=== PATIENT | male | born 1945 | race Caucasian/White ===

== ENCOUNTER 2021-05-25 08:18 | Outpatient (REF) | payer MEDICARE, SELFPAY ==
--- NOTE | 2021-05-25 12:53 | MHC.AU.AHA ---
Adult Audiological Evaluation Date of Visit: 05/25/21 Reason for Appointment: Audiological evaluation to monitor the status of Mr. Correa's hearing loss. He has a known bilateral sensorineural hearing loss and uses hearing aids binaurally. He feels his hearing is gradually getting worse. He notes difficulties understanding speech in groups and in meetings at work. He denies any changes to his medical history since his last visit. Previous Hearing Test Results: [facility] [place] [facility] [place]- Mild to severe sensorineural hearing loss in the left ear, moderate to severe sensorineural hearing loss in the right ear. Ear History: Bothersome Tinnitus/Ringing/Noises in Ears: Both Ears Medical History: Medical History: Cerebellar ataxia Hearing Instrument History- Right Ear: Repossessor: InMyRoom Model: adBrite M90-13T Serial Number: [id number] Battery Size: 13 Repair Warranty: 04/26/2023 Loss and Damage Warranty: 04/26/2023 Dispensed By: [facility] Date of Fittin03/17/2020 Hearing Instrument History- Left Ear: Repossessor: EVOFEMak Model: adBrite M90-13T Serial Number: [id number] Battery Size: 13 Warranty: 04/26/2023 Loss and Damage Warranty: 04/26/2023 Dispensed By: [facility] Date of Fittin03/17/2020 Otoscopy: Right Ear: Unremarkable Left Ear: Unremarkable Tympanometry: Tympanometry performed due to: History of middle ear dysfunction Right Ear: Reduced Middle Ear Compliance (Type As) Left Ear: Reduced Middle Ear Compliance (Type As) Hearing Evaluation: Transducer(s) Used: Circumaural Headphones Method: Conventional Audiometry Stimuli Used: Pure Tones Right Ear: Description of Hearing: Moderate sloping to severe sensorineural hearing loss from 250-8000 Hz. Left Ear: Description of Hearing: Mild sloping to severe sensorineural hearing loss from 250-8000 Hz. Speech Recognition Threshold (SRT): Method Used: Monitored Live Voice Stimuli Used: Spondee Words Right Ear: 55 dBHL Left Ear: 40 dBHL Word Discrimination: Method: Recorded Lists Word Lists Used: NU-6 Right Ear: 56% at 80 dBHL, 68% at 85 dBHL Left Ear: 64% at 80 dBHL, 76% at 85 dBHL Comparison: Compared to the most recent evaluation: Thresholds have decreased bilaterally. Recommendations: Audiological re-evaluation in one year. Hearing aid(s) reprogrammed with updated test results. Diagnosis: Primary Diagnosis: H90.3 Bilateral Sensorineural Hearing Loss Secondary Diagnosis: H69.93 Unspecified Eustachian Tube Dysfunction, Bilateral Services Performed: Comprehensive Audiological Evaluation (CPT 44029) Tympanometry (CPT 64259) Signature: Provider: Zka Castillo, CCC-A
== END 2021-05-25 08:19 | disposition home or self-care (01) ==
LOC: HO.SH 08:18
PROVIDERS: Visit Provider Internal Medicine Medical Oncology
DX: H90.3 Sensorineural hearing loss, bilateral (principal); H69.93 Unspecified Eustachian tube disorder, bilateral
CPT/HCPCS: 92557; 92567

== ENCOUNTER 2021-06-09 09:45 | Outpatient (REF) | payer SELFPAY | END 2021-06-09 09:46 | disposition home or self-care (01) | LOC: HO.HAP 09:45 | PROVIDERS: Visit Provider Internal Medicine Medical Oncology | DX: Z13.89 Encounter for screening for other disorder (principal) ==

== ENCOUNTER 2022-08-16 08:20 | Outpatient (REF) | payer MEDICARE, SELFPAY ==
--- NOTE | 2022-08-16 15:41 | MHC.AU.HFU ---
Hearing Instrument Follow-Up- Binaural Date of Visit: 08/16/22 Right Ear: Cuff Cutter: Phonak Model: Audeo M90-13T Serial Number: [id number] Repair Warranty: 04/26/2023 Loss and Damage Warranty: 04/26/2023 Battery Size: 13 Investor Relations Director: Size 1 M Type of Dome: Small power dome Type of Wax Guard: Cerushield Dispensed By: [facility] Date of Fittin03/17/2020 Left Ear: Cuff Cutter: Phonak Model: Audeo M90-13T Serial Number: [id number] Repair Warranty: 04/26/2023 Loss and Damage Warranty: 04/26/2023 Battery Size: 13 Investor Relations Director: Size 1 M Type of Dome: Small power Type of Wax Guard: Cerushield Dispensed By: [facility] Date of Fittin03/17/2020 Follow-Up Summary: Alexis returned for routine hearing aid maintenance. His hearing aids were cleaned, microphones were vacuumed, and domes and wax guards were replaced. He reported that the sound quality of these hearing aids compared to his old Audeo Q90-312 T is more shrill. He reportedly uses each pair of hearing aids interchangeably and has not established consistent use of his new hearing aids. Programming adjustments were not made today; however, Alexis was advised to call if the sound quality becomes uncomfortable or if problems persist. Recommendations: Hearing instrument maintenance in 6 months, or sooner if needed. Please contact our clinic with any questions or concerns. Diagnosis Code(s): Primary Diagnosis: H90.3 Bilateral Sensorineural Hearing Loss Signature: Provider: Lino Scott, [facility]
== END 2022-08-16 08:21 | disposition home or self-care (01) ==
LOC: HO.SH 08:20
PROVIDERS: Visit Provider Internal Medicine Medical Oncology
DX: Z01.118 Encounter for examination of ears and hearing with other abnormal findings (principal); H90.3 Sensorineural hearing loss, bilateral
CPT/HCPCS: 92557

== ENCOUNTER → 2022-12-06 13:07 | Outpatient (BNVA) | payer MEDICARE, SELFPAY | PROVIDERS: PCP Internal Medicine Medical Oncology; Visit Provider Nurse Practitioner Family | DX: G20 Parkinson's disease (principal); R51.9 Headache, unspecified; R26.9 Unspecified abnormalities of gait and mobility; H53.2 Diplopia | CPT/HCPCS: 99202 ==

== ENCOUNTER → 2023-04-26 12:54 | Outpatient (BNVA) | payer MEDICARE, SELFPAY | PROVIDERS: PCP Internal Medicine Medical Oncology; Visit Provider Nurse Practitioner Family | DX: G20 Parkinson's disease (principal); H53.2 Diplopia; R26.9 Unspecified abnormalities of gait and mobility; R42 Dizziness and giddiness | CPT/HCPCS: 99212 ==

== ENCOUNTER 2023-07-12 09:17 | Day surgery (SDC) | payer MEDICARE, SELFPAY ==
--- NOTE | 2023-07-11 11:05 | P.CONAN_ITS ---
Documented by User: Oliva Heranndez NP 07/11/23 11:05 HPI - Anesthesia Eval Consult details Narrative: 78yo M for Upper Endoscopy and Colonoscopy Afib s/p RFA. [facility] Active Problems Active Problems: All Active Problems (Updated 07/11/23 @ 09:31 by Karla Butterfield RN) Parkinson's disease (Acute) Tremor (Acute) Diplopia (Acute) Headache (Acute) Gait difficulty (Acute) Dizziness (Acute) Past Medical History Medical History Ataxia Atrial fibrillation GERD (gastroesophageal reflux disease) HTN (hypertension) Movement disorder Family History Family History Mother Ovarian ca Cerebellar ataxia Father Heart abnormality Surgical History Surgical History History of knee surgery History of radiofrequency ablation (RFA) procedure for cardiac arrhythmia History of surgery on arm History of surgery on lower extremity Social History Social History Alcohol intake: current Alcohol intake frequency: a few times a week Alcohol type: wine Patient Tobacco Use Status: Former Tobacco user Quit Date: 1972 Use of substances other than those prescribed or required for medical reasons: No Are you DNR?: No Advance Directives: No Advance Directives Information Provided: Yes Meds Allergies Allergy/AdvReac Type Severity Reaction Status Date / Time No Known Allergies Allergy Verified 04/26/23 13:08 [No Known Allergies*] Home Medications Medication Instructions Recorded Confirmed Last Taken Type aspirin 81 mg tablet,delayed 81 mg PO DAILY 12/06/22 07/12/23 Unknown History release (Adult Aspirin Regimen) multivit with min-folic 1 tab PO DAILY 12/06/22 07/12/23 Unknown History acid-lutein 400 mcg-250 mcg chewable tablet (Centrum Silver) vitamin B complex (B 1 tab PO DAILY 12/06/22 07/12/23 Unknown History Complex-Vitamin B12 tablet) omeprazole 1 tab PO DAILY 04/26/23 07/12/23 Unknown History verapamil 120 mg tablet 60 mg PO DAILY 04/26/23 07/12/23 Unknown History Exam Exam Date and Time: July 11, [id number] Assessment and Plan Assessment Anesthesia Assessment: Chart Reviewed Documented by User: Shyanne Knight MD 07/12/23 10:06 [facility] Past Medical History Medical History Ataxia Atrial fibrillation GERD (gastroesophageal reflux disease) HTN (hypertension) Movement disorder Family History Family History Mother Ovarian ca Cerebellar ataxia Father Heart abnormality Surgical History Surgical History History of knee surgery History of radiofrequency ablation (RFA) procedure for cardiac arrhythmia History of surgery on arm History of surgery on lower extremity History of Problems with Anesthesia: No Social History Social History Alcohol intake: current Alcohol intake frequency: a few times a week Alcohol type: wine Patient Tobacco Use Status: Former Tobacco user Quit Date: 1972 Use of substances other than those prescribed or required for medical reasons: No Are you DNR?: No Advance Directives: No Advance Directives Information Provided: Yes Meds Allergies Allergy/AdvReac Type Severity Reaction Status Date / Time No Known Allergies Allergy Verified 04/26/23 13:08 [No Known Allergies*] Home Medications Medication Instructions Recorded Confirmed Last Taken Type aspirin 81 mg tablet,delayed 81 mg PO DAILY 12/06/22 07/12/23 Unknown History release (Adult Aspirin Regimen) multivit with min-folic 1 tab PO DAILY 12/06/22 07/12/23 Unknown History acid-lutein 400 mcg-250 mcg chewable tablet (Centrum Silver) vitamin B complex (B 1 tab PO DAILY 12/06/22 07/12/23 Unknown History Complex-Vitamin B12 tablet) omeprazole 1 tab PO DAILY 04/26/23 07/12/23 Unknown History verapamil 120 mg tablet 60 mg PO DAILY 04/26/23 07/12/23 Unknown History Exam Airway Mallampati Class: III TM Dist: >3cm Neck ROM: Full Loose/Missing/Broken Teeth: No Heart: RRR Lungs: CTA Assessment and Plan Assessment Anesthesia Assessment: Anesthesia Plan Discussed Final Anesthetic Review History of Problems with Anesthesia: No NPO: Yes ASA Class: III Final Preanesthetic Review: Meds/Allgs Chart Reviewed, Consent Obtained/Reviewed and Anes Risks/Benef Reviewed Patient Risk: Intermediate Procedure Risk: Intermediate Anesthetic Plan Anesthetic Plan: MAC: Disposition: Standard PACU
[2023-07-12 09:35] VITALS: BMI 26.5
[2023-07-12 09:41] VITALS: BP 137/81; PULSE 86; RESP 18; TEMP 36.6; O2SAT 96
[2023-07-12 09:55] VITALS: BMI 26.5
[2023-07-12] MEDS: Lactated Ringers 1,000 ML 100 ML IVCONT (10:03)
[2023-07-12 11:17] VITALS: BP 112/59; PULSE 47; RESP 12; TEMP 36.2; O2SAT 99
--- NOTE | 2023-07-12 11:20 | PM.OP ---
Brief Operative Note Date of Service: 07/12/23 Pre-op diagnosis: Jeffrey's, Screening Post-op diagnosis: other (Hiatal hernia, Gastric polyp, Diverticulosis) Procedure: EGD with biopsies, Colonoscopy to the cecum Surgeon: Jonny Cruz Anesthesia: MAC Was an Correspondence Renew Clerk used for this Procedure?: No Estimated blood loss (mL): 2.0 Pathology: other (A. Proximal gastric polyp B. EG Junction at 35cm) Condition: stable Disposition: PACU
[2023-07-12 11:32] VITALS: BP 147/66; PULSE 51; RESP 16; TEMP 36.6; O2SAT 98
[2023-07-12 11:47] VITALS: BP 147/65; PULSE 58; RESP 16; O2SAT 99
--- NOTE | 2023-07-12 12:58 | OP_ITS ---
DATE OF SERVICE: 07/12/2023 SURGEON: Jonny Cruz MD INDICATIONS: The patient presents for evaluation of gastroesophageal reflux, history of Jeffrey's esophagus, and colorectal cancer screening. Full consent has been obtained from him for this, including risks of bleeding and perforation. PREOPERATIVE DIAGNOSIS: POSTOPERATIVE DIAGNOSIS: PROCEDURE PERFORMED: Esophagogastroduodenoscopy with biopsies, and colonoscopy to the cecum. ESTIMATED BLOOD LOSS: COMPLICATIONS: ANESTHESIA: Medication used, monitored anesthesia care. ASSISTANTS: SPECIMENS: PREOPERATIVE DIAGNOSES: Gastroesophageal reflux, history of Jeffrey's esophagus, colorectal cancer screening. POSTOPERATIVE DIAGNOSES: Gastroesophageal reflux, history of Jeffrey's esophagus, colorectal cancer screening, hiatal hernia, gastric polyp, diverticulosis, and internal hemorrhoids. DESCRIPTION OF PROCEDURE: The patient was placed in the left lateral decubitus position. The Olympus video gastroscope was passed into the posterior oropharynx and upper esophagus under direct vision. The scope was passed slowly to the distal esophagus. The gastroesophageal junction appeared at 35 cm. There was some very slight irregularity consistent with reflux and possibly small areas of Jeffrey's mucosa. There was no esophagitis nor any lesions. The scope entered the stomach. There was a moderate-sized hiatal hernia. Right beneath the hiatal hernia in the very proximal stomach was an approximately 10 mm flat gastric polyp. The scope was advanced to pylorus. The duodenum was cannulated to the descending portion. The duodenum including the bulb appeared normal without mass or ulceration. The scope was withdrawn back into the stomach. The gastric antrum and body appeared normal with good peristalsis. The scope was retroflexed visualizing the proximal stomach carefully, which appeared normal, other than the above-mentioned gastric polyp. There were no masses, nor any other lesions noted. In the forward viewing position, I was able to obtain several biopsies from the gastric polyp. This was along the lesser curvature in the very proximal stomach, just beneath the hiatal hernia. The hiatal hernia mucosa appeared normal. The scope was withdrawn back to the esophagus. Biopsies were obtained at the EG junction at 35 cm. Proximal to that, the esophageal mucosa appeared normal. The scope was withdrawn from the patient. He was turned around for the colonoscopy. The digital rectal exam revealed no abnormalities. The Olympus video pediatric colonoscope was entered into the rectum and advanced to the cecum. Advancement past the sigmoid was somewhat difficult due to some spasm and a lot of diverticulosis. Once in the cecum, I did identify normal-appearing cecal pouch with appendiceal orifice and a normal-appearing ileocecal valve. The entire cecum and ileocecal valve appeared normal. The scope was slowly withdrawn assessing all mucosal surfaces carefully. Preparation was for the most part excellent, although there was a lot of residual liquid, which had to be irrigated and suctioned away. I did not visualize any sign of polyps, colitis, nor angiodysplasia. There was a moderate amount of sigmoid and descending colon diverticulosis. In the rectum, scope was retroflexed visualizing internal hemorrhoids, but no other pathology. The rectal mucosa appeared normal. The scope was straightened and withdrawn from the patient. He tolerated the procedures well and was returned to the recovery area in stable condition. IMPRESSION: 1. Hiatal hernia, gastroesophageal reflux, rule out Jeffrey's esophagus. 2. Gastric polyp. 3. Diverticulosis. 4. Internal hemorrhoids. PLAN: The results of the biopsies will be checked. Given his age and these minimal findings, I do not think he will need any further upper endoscopies nor screening colonoscopies in the future. He was advised not to use any aspirin or NSAIDs for 1 more week. He will continue his omeprazole for relief of his reflux. He will otherwise see me on a p.r.n. basis. This has been discussed with his . MD HELEN Sigala/STEPHEN / [id number] MTDD
== END 2023-07-12 12:38 | disposition home or self-care (01) ==
PROVIDERS: PCP Internal Medicine Medical Oncology; Visit Provider Internal Medicine
PROC: (CPT 43239; principal; 2023-07-12 10:30)
DX: Z12.11 Encounter for screening for malignant neoplasm of colon (principal); K57.30 Diverticulosis of large intestine without perforation or abscess without bleeding; K64.8 Other hemorrhoids; K22.70 Barrett's esophagus without dysplasia; K21.9 Gastro-esophageal reflux disease without esophagitis; K31.7 Polyp of stomach and duodenum; K44.9 Diaphragmatic hernia without obstruction or gangrene; I10 Essential (primary) hypertension; I48.91 Unspecified atrial fibrillation; G25.9 Extrapyramidal and movement disorder, unspecified; R27.0 Ataxia, unspecified; Z79.899 Other long term (current) drug therapy; Z79.82 Long term (current) use of aspirin; Z87.891 Personal history of nicotine dependence
CPT/HCPCS: 43239; G0121; 88305; 88342

== ENCOUNTER 2023-08-08 13:05 | Outpatient (AMB) | payer MEDICARE, SELFPAY ==
--- NOTE | 2023-08-08 13:22 | MHC.OFFVIS ---
Intake Vital Signs 08/08/23 13:23 Weight 184 lb BP 124/78 Blood Pressure Location Rt brachial Position Sitting Pulse 69 Pulse Source Pulse Oximeter Pulse Oximetry (%) 96 Oxygen Delivery Method Room Air Intake Visit Reasons: 5m f/u cerebellar ataxia/parkinson-Confirmed Intake Note: Patient presents for 5 month follow up. Patient states I haven't gotten the pet scan results would like to take a look at that. Allergies No Known Allergies [No Known Allergies*] Allergy (Verified 08/08/23 13:24) HPI HPI Comments History of Present Illness Details 78 -yr-old fe/male presents for f/u visit. Pt denies any significant interval medical history changes. Brain RACHEL SPECT study. Findings: There is residual but abnormally decreased uptake within the bilateral caudate heads. There is significantly decreased uptake in the bilateral putamen, right worse than left. Impression: Decreased activity in bilateral basal ganglia as described above. Differential diagnosis includes Parkinson's disease, multiple system atrophy, progressive supranuclear palsy, dementia with Lewy Bodies, and cortical basal degeneration. After DaTscan I had spoken to pt about results and given resources for pt to review online- which he has done. Pt would like to discuss DaTscan results of PD and implications. wonders if results exclude previous dx of cerbellar ataxia, or if these are 2 separate possible dx's. He states his primary concern right now is his overall endurance. He may find that if he stands to long, he will feel as if his feet/body is frozen. He has just started PT at [facility]- done 1 session so far. [facility] Medical History Ataxia Atrial fibrillation GERD (gastroesophageal reflux disease) HTN (hypertension) Movement disorder Surgical History History of surgery on lower extremity History of surgery on arm History of knee surgery History of radiofrequency ablation (RFA) procedure for cardiac arrhythmia Family History Mother Ovarian ca Cerebellar ataxia Father Heart abnormality Social History Alcohol intake: current Alcohol intake frequency: a few times a week Alcohol type: wine Patient Tobacco Use Status: Former Tobacco user Quit Date: 1972 Review of Systems Const All systems reviewed & are unremarkable except as noted in HPI and below Physical Exam Vital Signs: Last Vital Signs Pulse 69 08/08/23 13:23 BP 124/78 08/08/23 13:23 Pulse Ox 96 08/08/23 13:23 Oxygen Delivery Method Room Air 08/08/23 13:23 Const General: cooperative and no acute distress Resp Effort & Inspection: normal respiratory effort and able to speak in complete sentences Neuro Other: General: A&O x's Expression: Mild decreased expression and blink Voice: Soft hoarse Tremor: Intermittent very mild left postural tremor Tone: No significant tone Dyskinesia: None Finger-nose- Intact, slightly less fluid on left FFM: Mildly decreased on left Foot taps: Decreased fluidity on left Gait: Stands easily w/o arms, slight stoop, no arm swing, narrow base, shorter steps, more narrow base, quick turns. Psych: Pleasant affect Assessment & Plan Assessment & Plan (1) Parkinson's disease: Comment: ? MSA Code(s): G20 - Parkinson's disease (2) Tremor: Code(s): R25.1 - Tremor, unspecified (3) Diplopia: Code(s): H53.2 - Diplopia Plan Reviewed DaTscan results- results c/w a neurodegenerative process such as PD. Discussed obtaining genetics consult to assess for cerebellar ataxia- however pt not interested at this time. Continue PT. Continue regular physical and cognitively stimulating activities. Pt advised to f/u w/ audiology for hearing aides. No strong indication to start dopaminergic tx at this time. f/u in 4 months or sooner prn. Coding Level of Care Code Est Pt Level 4 (57120) Diagnoses Parkinson's disease G20 Tremor R25.1 Diplopia H53.2
[2023-08-08 13:23] VITALS: BP 124/78; PULSE 69; O2SAT 96
== END 2023-08-08 14:35 | disposition home or self-care (01) ==
PROVIDERS: PCP Internal Medicine Medical Oncology; Visit Provider Nurse Practitioner Family
DX: G20 Parkinson's disease (principal); R25.1 Tremor, unspecified; H53.2 Diplopia
CPT/HCPCS: 99214

== ENCOUNTER → 2023-08-08 13:05 | Outpatient (BNVA) | payer MEDICARE, SELFPAY | PROVIDERS: PCP Internal Medicine Medical Oncology; Visit Provider Nurse Practitioner Family | DX: G20.A1 Parkinson's disease without dyskinesia, without mention of fluctuations (principal); H53.2 Diplopia | CPT/HCPCS: 99212 ==

== ENCOUNTER 2023-11-22 08:42 | Outpatient (REF) | payer MEDICARE, SELFPAY | END 2023-11-22 08:43 | disposition home or self-care (01) | LOC: HO.SH 08:42 | PROVIDERS: Visit Provider Internal Medicine Medical Oncology | DX: Z01.118 Encounter for examination of ears and hearing with other abnormal findings (principal); H90.3 Sensorineural hearing loss, bilateral | CPT/HCPCS: 92552; 92556; 92567 ==

== ENCOUNTER 2023-11-22 09:56 | Outpatient (REF) | payer SELFPAY ==
--- NOTE | 2023-11-22 11:54 | MHC.AU.HA3 ---
Hearing Instrument Follow-Up- Binaural Date of Visit: 11/22/23 Right Ear: Marlon, Model, Color, Serial Number: Jw Bolden [id number] SN: [id number] Color: Derike Manager Commercial Repair Warranty: 04/26/2023 Manager Commercial Loss and Damage Warranty: 04/26/2023 Battery Size: 13 Customs House Broker/Slim Tube: 1M Earmold/Dome/CShell/SlimTip:Small power dome with retention tail Type of Wax Guard: Cerushield Dispensed By: [facility] Date of Fittin03/17/2020 Left Ear: Marlon, Model, Color, Serial Number: Jw Bolden [id number] SN: [id number] Color: Maricruz Manager Commercial Repair Warranty: 04/26/2023 Manager Commercial Loss and Damage Warranty: 04/26/2023 Battery Size: 13 Customs House Broker/Slim Tube: 1M Earmold/Dome/CShell/SlimTip: Small power dome with retention tail Type of Wax Guard: Cerushield Dispensed By: [facility] Date of Fittin03/17/2020 Follow-Up Summary: Alexis returned for routine hearing aid maintenance and programming adjustments following an updated hearing test. Cleaned both sets of hearing aids (current Audeo [id number] and old Audeo [id number]). Replaced all domes, wax guards, and retention tails. Vacuumed microphones and ran through dehumidifier. Reprogrammed new hearing aids to updated audiogram due to slight decrease in high frequency thresholds. Initially, Alexis noticed improvement in speech understanding and requested soundfield testing. [facility] - scored 80% at 60 dB HL. Alexis then reported the hearing aids were too loud; however, he was agreeable to trying to acclimate to the new sound quality. He will use his xiao to make programming adjustments, as needed. Alexis also requested a volume increase on his old hearing aids. Increased overall gain level to 100%. Alexis will try new settings on both hearing aids and return if problems arise. Discussed that warranty and any future visits will incur [id number]. Recommendations: Hearing instrument follow-up or maintenance as needed. Please contact our clinic with any questions or concerns. Recommendations (Other): Follow up with primary care physician for cerumen removal Diagnosis Code(s): Primary Diagnosis: H90.3 Bilateral Sensorineural Hearing Loss Signature: Provider: Lino Scott, [facility]
== END 2023-11-22 09:57 | disposition home or self-care (01) ==
LOC: HO.HAP 09:56
PROVIDERS: Visit Provider Internal Medicine Medical Oncology
DX: Z46.1 Encounter for fitting and adjustment of hearing aid (principal); H90.3 Sensorineural hearing loss, bilateral
CPT/HCPCS: 92593

== ENCOUNTER 2023-12-13 13:16 | Outpatient (AMB) | payer MEDICARE, SELFPAY ==
--- NOTE | 2023-12-13 13:46 | MHC.OFFVIS ---
Intake Vital Signs 12/13/23 13:48 Height 5 ft 10 in Weight 184 lb 6 oz BMI 26.5 BP 124/82 Blood Pressure Location Rt brachial Position Sitting Pulse 76 Pulse Source Pulse Oximeter Pulse Oximetry (%) 98 Oxygen Delivery Method Room Air Intake Visit Reasons: 4 mnts f/u appt-LVM Intake Note: patient presents for 4 mth follow up. Allergies No Known Allergies [No Known Allergies*] Allergy (Verified 12/13/23 13:49) Medication List - Last Reconciled 12/13/23 by IVAN Rodriguez aspirin (Adult Aspirin Regimen) 81 mg PO DAILY im-asi-nyifj acid-lutein 400-250 mcg (Centrum Silver) 1 tab PO DAILY omeprazole 1 tab PO DAILY verapamil 60 mg PO DAILY vitamin B complex (B Complex-Vitamin B12 tablet) 1 tab PO DAILY HPI HPI Comments History of Present Illness Details 78-yr-old male presents for f/u visit, accompanied by his . Pt's current PD medication regimen: None Pt's primary concerns are: He is slower overall. Patient does have questions regarding Parkinson's. He is curious about affects of long-term levodopa use. He wonders if it is possible to overdo it with exercise. Specifically he wonders if excessive exercise will have a negative effect on the basal ganglia. He also wonders if he will need a follow-up terrence scan. ADL's: Ind. More effort putting coat on/off- which he attributes to left upper arm pain. Swallowing: No issues Drooling: Some Orthostatic lightheadedness: Has not had this so much- PT has helped this Constipation: None Freezing: None Stiffness: Possibly, may he is slower because he is stiffer- but not sure if he is rigid. Tremor: Not much in hands, legs may twitch especially if standing or standing on one leg Falls: Fell the other day, was walking about 1/2 mile (usually walks longer), pushed it too far and all of a sudden got weak and legs gave out and had to go down, felt weak for a few minutes. He notes that before he took the walk, he already did not feel well, maybe some malaise. feels that he may not eat enough during the day. This was his typical fall- last was a few years ago. Hallucinations: Denies Memory: May have senior moments , looking for a word Sleep: 9 hrs a night- wishes it was less so he could use the treadmill. He now feels less ablility to bounce back from lack of sleep. Exercise: Doing more PD exercises. [facility] Medical History Ataxia Atrial fibrillation GERD (gastroesophageal reflux disease) HTN (hypertension) Movement disorder Surgical History History of surgery on lower extremity History of surgery on arm History of knee surgery History of radiofrequency ablation (RFA) procedure for cardiac arrhythmia Family History Mother Ovarian ca Cerebellar ataxia Father Heart abnormality Social History Alcohol intake: current Alcohol intake frequency: a few times a week Alcohol type: wine Patient Tobacco Use Status: Former Tobacco user Quit Date: 1972 Review of Systems Const All systems reviewed & are unremarkable except as noted in HPI and below Physical Exam Vital Signs: Last Vital Signs Pulse 76 12/13/23 13:48 BP 124/82 12/13/23 13:48 Pulse Ox 98 12/13/23 13:48 Oxygen Delivery Method Room Air 12/13/23 13:48 BMI result Body Mass Index 26.5 Const General: cooperative and no acute distress Resp Effort & Inspection: normal respiratory effort and able to speak in complete sentences Neuro Other: General: A&O x's Expression: Mild decreased expression and blink Voice: Soft hoarse Tremor: No left postural tremor today Tone: Mild UE tone Dyskinesia: None FFM: Mildly decreased on left Foot taps: Decreased fluidity on left Gait: Stands easily w/o arms, slight stoop, no arm swing, narrow base, short steps, steady. Left upper extremity: Proximal upper arm tenderness, without swelling, redness, ecchymosis. Negative empty can test. Muscle strength 5/5. Limited shoulder range of motion- ? Due to discomfort. Assessment & Plan Assessment & Plan (1) Parkinson's disease without dyskinesia: Code(s): G20.A1 - Parkinson's disease without dyskinesia, without mention of fluctuations (2) Left arm pain: Code(s): M79.602 - Pain in left arm (3) Lightheadedness: Code(s): R42 - Dizziness and giddiness (4) Tremor: Code(s): R25.1 - Tremor, unspecified Plan Answered all patient's questions regarding Parkinson's treatment and progression. Specifically, we do not usually order serial brain terrence scans Advised to read every [facility] counts by the [facility]. Patient will reach out to previous orthopedic surgeon at [facility], to further assess left upper arm shoulder pain. Consider referral to PT after ortho consult. Discussed risks for orthostatic hypotension in Parkinson's, especially in light of verapamil use. Advised to increase fluid and food, especially protein and carbohydrate intake prior to exercise. Continue regular physical and cognitively stimulating activities. Pt is not interested in starting dopaminergic tx at this time. f/u in 4 months or sooner prn. Coding Level of Care Code Est Pt Level 4 (34427) Diagnoses Parkinson's disease without dyskinesia G20.A1 Left arm pain M79.602 Lightheadedness R42 Tremor R25.1 Time Spent (min) 40
[2023-12-13 13:48] VITALS: BP 124/82; PULSE 76; O2SAT 98; BMI 26.5
== END 2023-12-13 14:47 | disposition home or self-care (01) ==
PROVIDERS: PCP Internal Medicine Medical Oncology; Visit Provider Nurse Practitioner Family
DX: G20.A1 Parkinson's disease without dyskinesia, without mention of fluctuations (principal); M79.602 Pain in left arm; R42 Dizziness and giddiness
CPT/HCPCS: 99214

== ENCOUNTER → 2023-12-13 13:16 | Outpatient (BNVA) | payer MEDICARE, SELFPAY | PROVIDERS: PCP Internal Medicine Medical Oncology; Visit Provider Nurse Practitioner Family | DX: G20.A1 Parkinson's disease without dyskinesia, without mention of fluctuations (principal); M79.602 Pain in left arm; R42 Dizziness and giddiness | CPT/HCPCS: 99212 ==

== ENCOUNTER 2024-04-19 12:16 | Outpatient (AMB) | payer MEDICARE, SELFPAY ==
[2024-04-19 13:00] VITALS: BP 112/80; PULSE 85; O2SAT 96; BMI 26.3
--- NOTE | 2024-04-19 13:00 | MHC.OFFVIS ---
Vital Signs 04/19/24 13:00 Height 5 ft 10 in Weight 183 lb BMI 26.3 BP 112/80 Blood Pressure Location Rt brachial Position Sitting Pulse 85 Pulse Source Pulse Oximeter Pulse Oximetry (%) 96 Oxygen Delivery Method Room Air Intake Visit Reasons: 4m follow up - LVM Intake Note: Patient presents for 4 month follow up. Patient stiffens up if he sits for long period of time,balance varies but in a decline has hard trouble articulating. Allergies No Known Allergies [No Known Allergies*] Allergy (Verified 04/19/24 13:06) Medication List - Last Reconciled 04/19/24 by IVAN Rodriguez aspirin (Adult Aspirin Regimen) 81 mg PO DAILY yo-pdk-fckrw acid-lutein 400-250 mcg (Centrum Silver) 1 tab PO DAILY omeprazole 1 tab PO DAILY verapamil 60 mg PO DAILY vitamin B complex (B Complex-Vitamin B12 tablet) 1 tab PO DAILY HPI Comments Details: 79-yr-old male presents for f/u visit, accompanied his . Pt denies any significant interval medical history changes. Pt's current PD medication regimen: None Pt's primary concerns are: Some days he is not as able to complete his walk. Walks around the campus near his office- stays in a loop where he can easily get back to his office. He will just feel that he he feels more weak, and will feel unsteady. His notes that his feet will drag more and he will be hunched over. He does not that his quadriceps are stiffer, when he starts to walk, but this loosens up. ADL's: Ind. Swallowing: No usual issues. He has had some bouts of choking- fluid going down the wrong way. Drooling: Some Orthostatic lightheadedness: None. Constipation: None Freezing: None Stiffness: Quads are stiff. He is slower overall. Tremor: Not much in hands- just in certain positions. Falls: Some close calls. No actual falls. Occassionally has fest Hallucinations: Denies Memory: May have senior moments , looking for a word Sleep: 9 hrs a night- rare night of not sleeping well. Exercise: Doing more PD exercises. Walking on the treadmill. [facility] Medical History Ataxia Atrial fibrillation GERD (gastroesophageal reflux disease) HTN (hypertension) Movement disorder Surgical History History of surgery on lower extremity History of surgery on arm History of knee surgery History of radiofrequency ablation (RFA) procedure for cardiac arrhythmia Family History Mother Ovarian ca Cerebellar ataxia Father Heart abnormality Social History Alcohol intake: current Alcohol intake frequency: a few times a week Alcohol type: wine Patient Tobacco Use Status: Former Tobacco user Review of Systems Const All systems reviewed & are unremarkable except as noted in HPI and below Physical Exam Vital Signs: Last Vital Signs Pulse 85 04/19/24 13:00 BP 112/80 04/19/24 13:00 Pulse Ox 96 04/19/24 13:00 Oxygen Delivery Method Room Air 04/19/24 13:00 BMI result Body Mass Index 26.3 Const General: cooperative and no acute distress Resp Effort & Inspection: normal respiratory effort and able to speak in complete sentences Neuro Other: General: A&O x's Expression: Mild decreased expression and blink Voice: Soft hoarse Tremor: No left postural tremor today Tone: LUE tone Dyskinesia: None FFM: Decreased on left Foot taps: Decreased fluidity on left Gait: Stands easily, unsteady after standing- crosses feet, slight stoop, no arm swing, narrow base, short steps w/ cane Assessment & Plan Assessment & Plan (1) Parkinson's disease without dyskinesia: Code(s): G20.A1 - Parkinson's disease without dyskinesia, without mention of fluctuations Category: Medical (2) Gait difficulty: Code(s): R26.9 - Unspecified abnormalities of gait and mobility Category: Medical Plan Start CD-LD 25-100mg 1 tab bid. Will refer pt for PT eval & tx for gait, balance, rigidity. Advised to be mindful to turn slowly, using his whole body. Continue regular physical and cognitively stimulating activities. ? f/u in 4-6 months or sooner prn. Orders: Orders PT Evaluation and Treatment Today G20.A1 - Parkinson's disease without dyskinesia, without mention of fluctuations, R26.9 - Unspecified abnormalities of gait and mobility, R29.898 - Other symptoms and signs involving the musculoskeletal system Medications: New carbidopa-levodopa 25-100 mg take w/ a cracker 30 minutes before breakfast and dinner, 1 tab PO BID 90 days 180 tabs 1RF Coding Level of Care Code Est Pt Level 4 (29847) Diagnoses Parkinson's disease without dyskinesia G20.A1 Gait difficulty R26.9
== END 2024-04-19 14:12 | disposition home or self-care (01) ==
PROVIDERS: PCP Internal Medicine Medical Oncology; Visit Provider Nurse Practitioner Family
DX: G20.A1 Parkinson's disease without dyskinesia, without mention of fluctuations (principal); R26.9 Unspecified abnormalities of gait and mobility
CPT/HCPCS: 99214

== ENCOUNTER → 2024-04-19 12:16 | Outpatient (BNVA) | payer MEDICARE, SELFPAY | PROVIDERS: PCP Internal Medicine Medical Oncology; Visit Provider Nurse Practitioner Family | DX: G20.A1 Parkinson's disease without dyskinesia, without mention of fluctuations (principal); R26.9 Unspecified abnormalities of gait and mobility | CPT/HCPCS: 99212 ==

== ENCOUNTER 2024-07-05 08:18 | Outpatient (REF) | payer SELFPAY ==
--- NOTE | 2024-07-05 09:15 | MHC.AU.HA3 ---
Hearing Instrument Follow-Up- Binaural Date of Visit: 07/05/24 Right Ear: Marlon, Model, Color, Serial Number: Jw Bolden [id number] SN: [id number] Color: Joeyagne Physical Security Manager Repair Warranty: 04/26/2023 Physical Security Manager Loss and Damage Warranty: 04/26/2023 Battery Size: 13 Floral Clerk/Slim Tube: 1M Earmold/Dome/CShell/SlimTip:Small power dome with retention tail Type of Wax Guard: Cerushield Dispensed By: [facility] Date of Fittin03/17/2020 Left Ear: Marlon, Model, Color, Serial Number: Jw Bolden [id number] SN: [id number] Color: Maricruz Physical Security Manager Repair Warranty: 04/26/2023 Physical Security Manager Loss and Damage Warranty: 04/26/2023 Battery Size: 13 Floral Clerk/Slim Tube: 1M Earmold/Dome/CShell/SlimTip: Small power dome with retention tail Type of Wax Guard: Cerushield Dispensed By: [facility] Date of Fittin03/17/2020 Follow-Up Summary: Past three months, has noticed increasing difficulty understanding speech, particularly high-pitched voices. Also asking for more repetition. Wax guards almost completely occluded. Cleaned both hearing aids. Replaced domes, wax guards, and retention tails. Vacuumed microphones. Ran through dehumidifier. Listening check demonstrated hearing aids amplifying clearly. Increased overall gain to 100%. Reran feedback analyzer with noted improvement in feedback curve in right ear. Increased noise management settings in noise programs due to reported difficulty in more complex listening environments. Discussed realistic expectations, processing of sounds, etc. After adjustments, Alexis noticed improvement of sound quality in office. Advised scheduling apt within 1-2 weeks if issues persist to be covered under today's office visit fee. Recently dx Parkinson's. Recommendations: Hearing instrument follow-up or maintenance as needed. Please contact our clinic with any questions or concerns. Diagnosis Code(s): Primary Diagnosis: H90.3 Bilateral Sensorineural Hearing Loss Signature: Provider: Lino Scott, [facility]
== END 2024-07-05 08:19 | disposition home or self-care (01) ==
LOC: HO.SH 08:18
PROVIDERS: Visit Provider Internal Medicine Medical Oncology
DX: Z01.118 Encounter for examination of ears and hearing with other abnormal findings (principal); H90.3 Sensorineural hearing loss, bilateral
CPT/HCPCS: 92593

== ENCOUNTER 2024-11-15 13:41 | Outpatient (AMB) | payer MEDICARE, SELFPAY ==
--- OUTSIDE RECORDS SUMMARY | 2024-11-15 13:44 | XMS_ITS ---
Author Organization [facility] Address [address] [place] [address] Care Team Providers Care Economic Specialist Name Role Phone Jonny Serra MD Primary Care Provider Unavailab Jonny Shelley Unavailable [phone] REASON FOR VISIT gerd,tello's ,screening PROBLEMS Problem Type ICD Code Onset Dates Problem Status W/U Status Risk SNOMED Code Notes Problem Diverticulosis of colon (K57.30) Active confirmed Diverticulosi s of colon (582359064) Problem Esophageal reflux (K21.9) Active confirmed Esophageal refl ux (355191943) Problem Gastric polyp (K31.7) Active confirmed Gastric polyp (83373548) 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 Tello esophag us (792461267) Encounters Encounter Location Date Provider Diagnosis [facility] Outpatient [address] [place] [phone] 07/12/2023 Jonny Cruz Colon cancer scree wade Z12.11 ; Diverticulosis of colon K57.30 ; Internal hemorrhoids K64.8 ; Esophageal reflux K21.9 ; Hiatal hernia K44.9 ; Gastric polyp K31.7 and 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
--- OUTSIDE RECORDS SUMMARY | 2024-11-15 13:44 | XMS_ITS ---
Author Organization Jonny Serra III, MD Address [address] [place] [address] Care Team Providers Care Technical Communicator Name Role Phone Jonny Serra Primary Care Provider [phone] Allergies Allergen (clinical drug ingredient) Drug/Non Drug [...] Provider Speciality Internal M edicine Referred Provider [facility] er, Speech & Hearing Referred Provider Specialty Unknown General Notes Carla Allred 2023 11:22:46 AM EDT > Referral faxed with progress noteBrigida Amber 08/08/2024 03:21:07 PM > Patient is still active in the system and needs to contact them directly to schedule an appointment. Patient was contacted and left a message to contact the [facility] [place] to schedule the appointment. 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 06/14/2024 Barretts esophagus (ICD-10 - K22.70) [...] being seen by the neurology department at [facility] who find he has a movement [...] te and Treat Progressive hearing loss, Speech & [facility] 06/14/2024 06/14/2024, Evaluate and Treat Speech Therapy, [facility] Next Appt Details Follow Up: 2 Months, Reason: ov Provider Name:Jonny Serra, 12/09/2024 10:00:00 AM, [address] [place] [address] [address], [place], [address], Provider Name:Jonny Serra, 06/19/2025 10:00:00 AM, [address] [place] [address] [address], [place], [address], Progress Notes * HESSAlexis OZUNA ADOB:1944 (79 yo M)Acc No.[id number]:06/14/2024 Progress Notes Patient:?Alexis Hess Provider:?Jonny Serra MD :1945???Age:79 Y???Sex:Male Brice e:06/14/2024 Address:[address] [place] [address] [id number] Subjective: * Chief Complaints: * ???Annual Exam * HPI: ???Depression Screening:? He returns to the office at the [...] no change in his regimen was needed. ?PHQ-9?Little interest or pleasure in doing things?Not at all ?Feeling down, depressed, or hopeless?Not at all ?Trouble falling or staying asleep, or sleeping too much?Not at all ?Feeling tired or having little energy?Not at all ?Poor appetite or overeating?Not at all ?Feeling bad about yourself or that you are a failure, or have let yourself or your family down?Not at all ?Trouble concentrating on things, such as reading the newspaper or watching television?Not at all ?Moving or speaking so slowly that other people could have noticed; or the opposite, being so fidgety or restless that you have been moving around a lot more than usual?Not at all ?Thoughts that you would be better off or of hurting yourself in some way?Not at all ?Total Score?0 ???COVID-19 Screening:?Questions?Have you experienced fever, chills, cough, sore throat, shortness of breath, difficulty breathing, muscle aches, loss of taste or smell??No ?Have you been exposed to the virus within the last 10 days??No ?Have you travelled internationally in the last 10 days??No ?Have you been exposed to COVID-19 in the past??No ???SDOH Questions:?SDOH Questions?In the past year have you been worried about losing your housing??No ?In the past year have you or any family members you live with been unable to get any of the following when it was really needed? Check all that apply:?Decline to answer * ROS:?General/Constitutional:?pain?only normal aches and pains.?Chills?denies.?Fatigue?admits.?Fever?denies.?ENT:?Decreased hearing?in both ears.?Respiratory:?Cough?denies.?Cardiovascular:?Chest pain with exertion?denies.?Dyspnea on exertion?denies.?Shortness of breath?denies.?Gastrointestinal:?Constipation?occasional.?Decreased appetite?denies.?Diarrhea?denies.?Heartburn?denies.?Nausea?denies.?Rectal bleeding?denies.?Vomiting?denies.?Hematology:?bruising?denies.?petechiae?denies.?Swollen glands?none have been noted.?Genitourinary:?Frequent urination?once a night.?Musculoskeletal:?Muscle aches?denies.?Painful joints?denies.?Sciatica?denies.?Weakness?that is generalized.?Skin:?Itching?denies.?Rash?denies.?Skin lesion(s)?denies.?Neurologic:?Difficulty speaking?denies.?Dizziness?denies.?Headache?denies.?Low back pain?denies.?Psychiatric:?Depressed mood?which is mild.? * Medical History:? * Surgical History:?repair rig ht quadriceps tendon, Dr. Jacobs 10/2004right biceps tendon repair 2002left knee surgery 1993Colonoscopy and Esophagogastroduodenoscopy 11/25/2012 * Hospitalization/Major Diagno stic Procedure:?Denies Past Hospitalization * Family History:?Father: dece ased 79 yrs, ventricular fibrillation.?Mother: 75 yrs, ovarian cancer, diagnosed with Cancer.?4 brother(s) - healthy. 1 son(s) , 1 daughter(s) - healthy. .? His daughter is overweight and has carpal tunnel syndrome. * Social History:?Tobacco Use:?Tobacco Use/Smoking?Patient is a?former smoker ?How long has it been since you last smoked??> 10 years ?Additional Findings: Tobacco Non-User?Ex-cigarette smoker ???Drugs/Alcohol:?Drugs?Have you used drugs other than those for medical reasons in the past 12 months??No ?Alcohol Screen?Did you have a drink containing alcohol in the past year??No ?Points?0 ?Interpretation?Negative ???He works in the [employer] Department at [employer]. He has been to Laine George for 20 years and has 2 children, a son and a daughter. He has 4 grandchildren and lives in [place]. He was born in [place], [place]. * Medications:?TakingVerapamil HCl ER 120 mg Tablet Extended Release TAKE 1 TABLET DAILY Aspirin Adult Low Dose 81 MG Tablet Delayed Release 1 tablet Orally Once a dayKLS Omeprazole 20 MG Tablet Delayed Release 1 tablet Orally as needed for refluxVitamin B12 metroNIDAZOLE 0.75 % Gel APPLY EXTERNALLY TWO TIMES A DAY Carbidopa-Levodopa 25-100 MG Tablet Oral Medication List [...] reviewed and reconciled with the patient * Allergies:?No Known Drug All ergyno[Allergies Verified] Objective: * Vitals:?Ht: 71, Wt:186, BMI: 25.94, BP:140/79, HR:73, Temp:99.0, Wt-k.37. * Examination: ???General Examination: ?GENERAL APPEARANCE:?pleasant, well nourished, well developed, in no acute distress, calm and relaxed , overweight , elderly man.?HEAD:?atraumatic, normocephalic.?EYES:?eomi, perrla, anicteric, conjugate.?EARS:?normal.?NOSE:?septum intact.?ORAL CAVITY:?normal, unremarkable.?NECK/THYROID:?no jugular venous distention, no carotid bruit, thyroid normal.?LYMPH NODES:?no enlarged lymph nodes,spleen normal.?SKIN:?no suspicious lesions, anicteric.?HEART:?no clicks, gallops, murmurs, or rubs, regular rhythm, S1, S2 normal, no s3, or vascular bruits.?LUNGS:?clear to auscultation .?BREASTS:??no masses palpable bilaterally.?ABDOMEN:?bowel sounds normal, no ascites, no organomegaly, no mass , overweight.?RECTAL EXAM:?not examined.?MUSCULOSKELETAL:?extremities unremarkable, no clubbing, cyanosis or edema.?PERIPHERAL PULSES:?normal.?NEUROLOGIC:?alert and oriented, cranial nerves 2-12 grossly intact, deep tendon reflexes 2+ symmetrical, motor strength normal upper and lower extremities, sensory exam intact, Speech apraxia, gait apraxia, resting tremor, parkinsonian face.?PSYCH:?alert, oriented.? Assessment: * Assessment: 1.?Overweight (BMI 25.0-29.9 ) - E66.3, He is very slightly overweight. I recommended he stabilize his weight at this level and avoid weight gain. I recommended regular exercise and the avoidance of to much sodium or concentrated sweets.?2.?BPH (benign prostatic hyperplasia) - N40.0, He arises from sleep once or twice a night to urinate. We discussed lifestyle modification as a way of reducing nocturia.?3.?Coronary artery disease - I25.10, Since his last visit he has had no angina or increase in dyspnea. He is able to walk 2 miles a day without chest pain.?4.?GERD (gastroesophageal reflux disease) - K21.9, His reflux symptoms are well controlled with ezqs-gnx-siwbyjj medication.?5.?Barretts esophagus - K22.70, He has had no dysphagia lately. He is followed by gastroenterology. His heartburn is well controlled. His colonoscopy is due next year.?6.?Atrial fibrillation - I48.91, He has paroxysmal atrial fibrillation and was in a regular rhythm today.?7.?Hearing loss - H91.90, His hearing loss is stable. He has benefited from the hearing aids.?8.?Former smoker - Z87.891, He seemed highly motivated not to smoke. He has a plan to prevent relapse.?9.?Vitamin B12 deficiency - E53.8, He has been compliant with his vitamin B12 supplementation. 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 He is using a cane when he walks. He has had 2 falls without injuries.?11.?Parkinsons disease - G20, He is being seen by the neurology department at [facility] who find he has a movement disorder and are calling and Parkinson's disease.? Plan: * Treatment: 2.?BPH (benign prostatic hyp erplasia)? Continue Aspirin Adult Low Dose Tablet Delayed Release, 81 MG, 1 tablet, Orally, Once a day;?Continue KLS Omeprazole Tablet Delayed Release, 20 MG, 1 tablet, Orally, as needed for reflux;?Continue Vitamin B12;?Continue Carbidopa-Levodopa Tablet, 25-100 MG, Oral.?LAB: PROFILE, FASTING (COMPREHENSIVE METABOLIC) ?LAB: PSA, TOTAL ?LAB: CBC WITH AUTO DIFF ?LAB: Lipid Panel 3.?Hearing loss? Referral To:Audiology [facility]??Otolaryngology ?Reason:ReEvaluate and Treat Progressive hearing loss 4.?Parkinsons disease? Referral To:[facility] ?Reason:Evaluate and Treat Speech Therapy 5.?Others? Continue Verapamil HCl ER Tablet Extended Release, 120 mg, TAKE 1 TABLET DAILY;?Continue metroNIDAZOLE Gel, 0.75 %, APPLY EXTERNALLY TWO TIMES A DAY.? Referral To:[facility] ?Reason:Evaluate and Treat Speech Therapy * Labs:? * ?Lab: URINE DIP STICK ? Value Reference Range ?SG 1.020 1.005 - 1.025 * ?pH 5.0 5.0 - 9.0 * ?NAKITA Negative Negative - * ?NIT Negative Negative - * ?PRO 15 Negative - Trac e * ?GLU Negative Negative - * ?KET 5 Negative - * ?UBG 0.2 0.1 - 1.8 * ?GURVINDER Negative 0.2 - 1.3 * ?BLD Negative Negative - * Procedure Codes:?41419 URINE -NO MICRO * Preventive Medicine:? ??Counseling:?Care goal follow-up plan:?Counseling for abnormal BMI given?Yes ?Above Normal BMI Follow-up?Dietary management education, guidance, and counseling, Dietary needs education ?Smoking/Tobacco Use?Patient counseled on the dangers of tobacco use and urged to quit.?06/14/2024 * Follow Up:?2 Months (Reason: ov) * Images: * Sign off status: Completed true * Provider:?Jonny Serra MD Date:?07/2024 Generated for Printi ng/Dinorah/eTransmitting on:?11/15/2024 01:43 PM EST History and Physical Notes * [...] days?: No Have you travelled internationally in last 10 days?: No Have you been [...] Referring Provider Referred Provider Not es [facility] Progressive hearing loss 06/14/2024 Ponce [facility], Speech & Hearing Evaluate and Treat Speech Therapy
--- OUTSIDE RECORDS SUMMARY | 2024-11-15 13:44 | XMS_ITS ---
Author Organization Jonny Serra III, MD Address [address] [place] [address] [place] [address] Care Team Providers Care Silk Screener Name Role Phone Jonny Serra Primary Care Provider [phone] Allergies Allergen (clinical drug ingredient) Drug/Non Drug [...] 24 Blood pressure diastolic 77 mm Hg 10/25/2 024 Heart Rate 74 /min 08/30/2024 Height 71 in 08/30/2024 Weight 184 lbs 08/30/2024 BMI 25.66 kg/m2 08/30/2024 Encounters Encounter Location Date Provider Diagnosis Jonny Serra III, MD [address] [place] [address] [place] [address] 08/30/2024 Jonny Serra BPH (benign prostati c [...] being seen by the neurology department at [facility] who find he has a [...] His reflux symptoms are well controlled with kuqt-ugr-zyxsgww medication. 08/30/2024 Barretts esophagus (ICD-10 - K22.70) [...] Next Appt Details Follow Up: 3 Months, y 3rd at 10:00 AM, Reason: OV, Regular check-up Provider Name:Jonny Serra, 12/09/2024 10:00:00 AM, [address] [place] [address] [address], [place], [address], Provider Name:Jonny Serra, 06/19/2025 10:00:00 AM, [address] [place] [address] [address], [place], [address], Progress Notes * Alexis HESS ADOB:1944 (79 yo M)Acc No.[id number]:08/30/2024 Progress Notes Patient:?Alexis HESS Provider:?Jonny Serra MD :1945???Age:79 Y???Sex:Male Brice e:08/30/2024 Address:[place], [id number] Subjective: * Chief Complaints: * ???Parkinson's diseaseCorona ry artery diseaseBarrett's esophagitisAtrial fibrillationHearing lossB12 deficiencyBenign prostatic hypertrophy * HPI: ???COVID-19 Screening:?Questions?Have you experienced fever, chills, cough, sore throat, shortness of breath, difficulty breathing, muscle aches, loss of taste or smell??No ?Have you been exposed to the virus within the last 10 days??No ?Have you travelled internationally in the last 10 days??No ?Have you been exposed to COVID-19 in the past??No ???:? The patient, a 79-year-old male, presented with [...] is 101. Pain Scale is 3-4. * ROS:?General/Constitutional:?pain?only normal aches and pains.?Chills?denies.?Fatigue?admits.?Fever?denies.?ENT:?Decreased hearing?in [...] Esophagogastroduodenoscopy 11/25/2012No history * Hospitalization/Major Diagno stic Procedure:?No history * Family History:?Father: dece ased 79 yrs, ventricular fibrillation.?Mother: 75 yrs, ovarian cancer, diagnosed with Cancer.?4 brother(s) - healthy. 1 son(s) , 1 daughter(s) - healthy. .? His daughter is overweight and has carpal tunnel syndrome. * Social History:?Tobacco Use:?Tobacco Use/Smoking?Patient is a?former smoker ?How long has it been since you last smoked??> 10 years ?Additional Findings: Tobacco Non-User?Ex-cigarette smoker ???He works in the [employer] Department at [employer]. He has been to [place] George for 20 years and has 2 children, a son and a daughter. He has 4 grandchildren and lives in [place]. He was born in [place], [place]. * Medications:?TakingVerapamil HCl ER 120 [...] All ergyno[Allergies Verified] Objective: * Vitals:?Ht: 71, Wt:184, BMI: 25.66, BP:132/77, HR:74, Temp:99.3, Wt-k.46. * ???Past Orders: Lab:URINE DIP STICK * Collection Date 06/14/2024 11/12/2018 05/06/2015 Collection Time 09:38 AM Order Date 06/14/2024 11/12/2018 05/06/2015 SG 1.020 (Ref Range: 1.005 - 1.025) 1.020 1.025 pH 5.0 (Ref Range: 5.0 - 9.0) 5 5 NAKITA Negative (Ref Range: Negative -) neg Neg [...] Neg Menstrating NR n/a N/A * Examination: ???General Examination: ?GENERAL APPEARANCE:?pleasant, well nourished, well developed, in no acute distress, calm and relaxed, overweight, man.?HEAD:?atraumatic, normocephalic.?EYES:?eomi, perrla, anicteric, conjugate.?EARS:?normal.?NOSE:?septum intact.?ORAL CAVITY:?normal, unremarkable.?NECK/THYROID:?no jugular venous distention, no carotid bruit, thyroid normal.?LYMPH NODES:?no enlarged lymph nodes,spleen normal.?SKIN:?no suspicious lesions, anicteric.?HEART:?no clicks, gallops, murmurs, or rubs, irregular rhythm, S1, S2 normal, no s3, or vascular bruits.?LUNGS:?clear to auscultation .?BREASTS:??no masses palpable bilaterally.?ABDOMEN:?bowel sounds normal, no ascites, no organomegaly, no mass, overweight.?RECTAL EXAM:?not examined.?MUSCULOSKELETAL:?extremities unremarkable, no clubbing, cyanosis or edema.?PERIPHERAL PULSES:?normal.?NEUROLOGIC:?alert and oriented, cranial nerves 2-12 grossly intact, deep tendon reflexes 2+ symmetrical, motor strength decreased upper and lower extremities, sensory exam intact, Worsening cerebellar ataxia, needs cane or walker, No tremor, parkinsonian facies, Mild slurring of speech.?PSYCH:?alert, oriented.? : ???{'Eyes':'Normal', 'Mouth': 'Cavity noted', 'Heart': 'Normal heart rate and rhythm, no premature heartbeats or heart murmurs', 'Lungs': 'Normal', 'Skin': 'Irritated hair follicle noted'}. ??? Assessment: * Assessment: 1.?Parkinsons disease - G20 (Primary)???Notes :He is being seen by the neurology department at [facility] who find he has a movement disorder and are calling and Parkinson's disease.He is being treated with carbidopa and levodopa several times a day.???2.?BPH (benign prostatic hyperplasia) - N40.0???Notes :He arises from sleep once or twice a night to urinate. We discussed lifestyle modification as a way of reducing nocturia.???3.?Vitamin B12 deficiency - E53.8???Notes :He was continued on his oral B12 supplementation.? Vitamin B12 level will be checked periodically.? It has been restored to normal in the past.???4.?Overweight (BMI 25.0-29.9) - E66.3???Notes :He is slightly overweight.? We discussed diet and nutrition.? I recommended he stabilize his weight at this level.???5.?Coronary artery disease - I25.10???Notes :Since his last visit he has had no angina or increase in dyspnea. He is able to walk 2 miles a day without chest pain.???6.?GERD (gastroesophageal reflux disease) - K21.9???Notes :His reflux symptoms are well controlled with kxhl-mjo-gtxppyu medication.???7.?Barretts esophagus - K22.70???Notes :He has had no dysphagia lately. He is followed by gastroenterology. His heartburn is well controlled. His colonoscopy is due next year.???8.?Atrial fibrillation - I48.91???Notes :He was in a slow controlled atrial fibrillation day with normal vital signs.???9.?Hearing loss - H91.90???Notes :His hearing loss is stable. He has benefited from the hearing aids.???10.?Former smoker - Z87.891???Notes :He seemed highly motivated not to smoke. 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 He is using a cane when he walks. He has had 2 falls without injuries.??? Plan: * Treatment: 2.?Vitamin B12 deficiency?LAB: PROFILE, FASTING (COMPREHENSIVE METABOLIC) ?LAB: CBC WITH AUTO DIFF ?LAB: Lipid Panel ?LAB: Vitamin B12 3.?Overweight (BMI 25.0-29.9 )?LAB: PROFILE, FASTING (COMPREHENSIVE METABOLIC) ?LAB: CBC WITH AUTO DIFF ?LAB: Lipid Panel ?LAB: Vitamin B12 4.?Others? Continue Verapamil HCl ER Tablet Extended Release, 120 mg, TAKE 1 TABLET DAILY;?Continue metroNIDAZOLE Gel, 0.75 %, APPLY EXTERNALLY TWO TIMES A DAY.?? * Procedure Codes:? * Preventive Medicine:? ??Counseling:?Care goal follow-up plan:?Counseling for abnormal BMI given?Yes ?Above Normal BMI Follow-up?Dietary management education, guidance, and counseling, Dietary needs education ?Smoking/Tobacco Use?Patient counseled on the dangers of tobacco use and urged to quit.?08/30/2024 * Follow Up:?3 Months, Februar y 3rd at 10:00 AM (Reason: OV, Regular check-up) * Images: * Sign off status: Completed true * Provider:?Jonny Serra MD Date:?08/07 Generated for Printi ng/Fajavig/eTransmitting on:?11/15/2024 01:43 PM EST History and Physical [...]
--- OUTSIDE RECORDS SUMMARY | 2024-11-15 13:44 | XMS_ITS | Patient Health Record ---
Author Organization Jonny Serra III, MD Address [address] [place] [address] Care Team Providers Care Engineering Operations Leader Name Role Phone Jonny Serra Primary Care Provider Allergies Allergen (clinical drug ingredient) Drug/Non Drug [...] Provider Speciality Internal M edicine Referred Provider [facility], Speech & Hearing Referred Provider Specialty Unknown General Notes Carla Allred 2023 11:22:46 AM EDT > Referral faxed with progress noteBrigida Amber 08/08/2024 03:21:07 PM > Patient is still active in the system and needs to contact them directly to schedule an appointment. Patient was contacted and left a message to contact the [facility] to schedule the appointment. 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) Referral Organization Jonny Serra III, MD Referring Provider First Name Jonny Referring Provider Last Name Ponce Referring Provider Speciality Internal M edicine Referred Provider [facility], Speech & Hearing Referred Provider Specialty Unknown General Notes [place] 2023 11:22:32 AM EDT > Referral faxed with progress note Referral Priority Routine Referral Appointment Date 11/13/2024 Medications Medication SIG (Take, Route, Frequency, Duration) Notes Start Date End Date Status metroNIDAZOLE 0.75 % APPLY EXTERNALLY TW O TIMES A DAY Active Carbidopa-Levodopa 25-100 MG Oral Active Verapamil HCl ER 120 mg TAKE 1 TABLET DAILY Active Vitamin B12 Active Aspirin Adult Low Dose 81 MG 1 tablet Or ally Once a day Active KLS Omeprazole 20 MG 1 tablet Orally as needed for reflux Active Immunizations Vaccine Route Administration Date Status Comme nts Influenza Unknown 07/09/2014 Administered Pneumococcal Unknown 08/17/2014 Administered Influenza Unknown 08/10/2015 Administered Influenza Unknown 07/23/2016 Administered Influenza Unknown 07/24/2017 Administered COVID- 19 Vaccine Unknown 02/05/2021 Administered 2nd d ose Pfizer Influenza no Preserv 3 and > Unknown 07/24/2021 Administered COVID- 19 Vaccine Unknown 08/06/2021 Administered Zoster IM Intramuscular 10/03/2021 Administered SHINGRIX IM Intramuscular 12/03/2021 Administered COVID PFIZER Unknown 02/05/2022 Administered Social History Tobacco Use: Social History Observation [...] ast year? No Points 0 Interpretation Negative Problems Problem Type SNOMED Code ICD Code Onset Dates Problem Status W/U Status Risk Notes Problem 7844190 Former smoker (Z87.891) Active confirmed He seemed highl y motivated not to smoke. He has a plan to prevent relapse. Problem 803619484 Overweight (BMI 25.0-29.9) (E66.3) Active confirmed He is sli ghtly overweight. We discussed diet and nutrition. I recommended he stabilize his weight at this level. Problem 453069799 GERD (gastroesophageal reflux disease) (K21.9) Active confirmed His reflux symp toms are well controlled with couw-hdp-rolectf medication. Problem 015495143 Vitamin B12 deficiency (E53.8) Active confirmed He was co ntinued on his oral B12 supplementation. Vitamin B12 level will be checked periodically. It has been restored to normal in the past. Problem 91326357 Coronary artery disease (I25.10) Active confirmed Since his l ast visit he has had no angina or increase in dyspnea. He is able to walk 2 miles a day without chest pain. Problem 832771176 BPH (benign prostatic hyperplasia) (N40.0) Active confirmed He arises from sleep once or twice a night to urinate. We discussed lifestyle modification as a way of reducing nocturia. Problem 72552992 Atrial fibrillat ion (I48.91) Active confirmed He was in a slo w controlled atrial fibrillation day with normal vital signs. Problem 43272135 Hearing loss (H91.90) Active confirmed His hearing los s is stable. He has benefited from the hearing aids. Problem 649473664 Barretts esophag us (K22.70) Active confirmed He has had no dysphagia lately. He is followed by gastroenterology. His heartburn is well controlled. His colonoscopy is due next year. Problem 53099519 Parkinsons disea se (G20) Active confirmed He is being see n by the neurology department at [facility] who find he has a movement disorder and are calling and Parkinson's disease.He is being treated with carbidopa and levodopa several times a day. Problem 434323366 Diverticulitis (K57.92) Active confirmed During a recent hospitalization a CT scan showed a masslike effect around the sigmoid colon. He has seen a insurance appraiser and a CT scan is being planned to evaluate the recently found abnormality. History of any symptoms today. Problem 50096414 Hypercholesterem ia (E78.00) Active confirmed Comprehensive b lood work with a fasting lipid profile has been ordered. No change in his regimen was made today. 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 He is using a cane when he walks. He has had 2 falls without injuries. Vital Signs Heart Rate 74 /min 08/30/2024 Temperature 99.3 degrees Fahrenheit 08/30/2024 Blood pressure diastolic 77 mm Hg 08/30/2024 Height 71 in 08/30/2024 Blood pressure systolic 132 mm Hg 08/30/2024 Weight 184 lbs 08/30/2024 BMI 25.66 kg/m2 08/30/2024 Encounters Encounter Location Date Provider Diagnosis Jonny Serra III, MD [address] [place] [address] [place] [address] 12/29/2023 Jonny eSrra BPH (benign prostati c hyperplasia) N40.0 ; Preoperative clearance Z01.818 ; Coronary artery disease I25.10 ; GERD (gastroesophageal reflux disease) K21.9 ; Barretts esophagus K22.70 ; Atrial fibrillation I48.91 ; Hearing loss H91.90 ; Former smoker Z87.891 ; Vitamin B12 deficiency E53.8 ; Parkinsons disease G20 ; Overweight (BMI 25.0-29.9) E66.3 and Cerebellar ataxia G11.9 Jonny Serra III, MD [address] [place] [address] [place] [address] 03/08/2024 Jonny Serra BPH (benign prostati c hyperplasia) N40.0 ; Coronary artery disease I25.10 ; GERD (gastroesophageal reflux disease) K21.9 ; Barretts esophagus K22.70 ; Atrial fibrillation I48.91 ; Hearing loss H91.90 ; Vitamin B12 deficiency E53.8 ; Former smoker Z87.891 ; Overweight (BMI 25.0-29.9) E66.3 ; Overweight E66.3 and Cerebellar ataxia G11.9 Jonny Serra III, MD [address] [place] [address] [place] [address] 06/14/2024 Jonny Serra BPH (benign prostati c hyperplasia) N40.0 ; Overweight (BMI 25.0-29.9) E66.3 ; Coronary artery disease I25.10 ; GERD (gastroesophageal reflux disease) K21.9 ; Barretts esophagus K22.70 ; Atrial fibrillation I48.91 ; Hearing loss H91.90 ; Former smoker Z87.891 ; Vitamin B12 deficiency E53.8 ; Cerebellar ataxia G11.9 and Parkinsons disease G20 Jonny Serra III, MD [address] [place] [address] [place] [id number] 08/30/2024 Jonny Serra BPH (benign prostati c [...] Assessment Notes Treatment Notes Treatment Clinical Notes 12/29/2023 BPH (benign prostatic hyperplasia) (ICD-10 - N40.0) He arises from sleep once or twice a night to urinate. We discussed lifestyle modification as a way of reducing nocturia. 12/29/2023 Preoperative clearance (ICD-10 - Z01.818) A careful history has been taken. His ccardiovascular illnesss is stable. I found no contraindication to cataract surgery today. A careful examination was done. He iss given medical clearance for sequential bilateral cataract surgery in January 2024. His risk is avverage. 03/08/2024 Coronary artery disease (ICD-10 - I25.10) Since his last visit he has had no angina or increase in dyspnea. He is able to walk 2 miles a day without chest pain. 03/08/2024 BPH (benign prostatic hyperplasia) (ICD-10 - N40.0) [...] to much sodium or concentrated sweets. 06/14/2024 BPH (benign prostatic hyperplasia) (ICD-10 - N40.0) He arises from sleep once or twice a night to urinate. We discussed lifestyle modification as a way of reducing nocturia. 08/30/2024 BPH (benign prostatic hyperplasia) (ICD-10 - N40.0) He arises from sleep once or twice a night to urinate. We discussed lifestyle modification as a way of reducing nocturia. 08/30/2024 Parkinsons disease (ICD-10 - G20) He is being seen by the neurology department at [facility] who find he has a movement disorder and are calling and Parkinson's disease.He is being treated with carbidopa and levodopa several times a day. 12/29/2023 Coronary artery disease (ICD-10 - I25.10) Since his last visit he has had no angina or increase in dyspnea. He is able to walk 2 miles a day without chest pain. 03/08/2024 GERD (gastroesophageal reflux disease) (ICD-10 - K21.9) His reflux symptoms are well controlled with uezp-pqf-eqzizth medication. 06/14/2024 Coronary artery disease (ICD-10 - I25.10) Since his last visit he has had no angina or increase in dyspnea. He is able to walk 2 miles a day without chest pain. 08/30/2024 Vitamin B12 deficiency (ICD-10 - E53.8) He was continued on his oral B12 supplementation. Vitamin B12 level will be checked periodically. It has been restored to normal in the past. 12/29/2023 GERD (gastroesophageal reflux disease) (ICD-10 - K21.9) His reflux symptoms are well controlled with ldin-hmq-vzvxnfp medication. 03/08/2024 Barretts esophagus (ICD-10 - K22.70) He has had no dysphagia lately. He is followed by gastroenterology. His heartburn is well controlled. His colonoscopy is due next year. 06/14/2024 GERD (gastroesophageal reflux disease) (ICD-10 - K21.9) His reflux symptoms are well controlled with cfwd-kqk-qzonmnz medication. 08/30/2024 Overweight (BMI 25.0-29.9) (ICD-10 - E66.3) He is slightly overweight. We discussed diet and nutrition. I recommended he stabilize his weight at this level. 12/29/2023 Barretts esophagus (ICD-10 - K22.70) He has had no dysphagia lately. He is followed by gastroenterology. His heartburn is well controlled. His colonoscopy is due next year. 03/08/2024 Atrial fibrillation (ICD-10 - I48.91) He has paroxysmal atrial fibrillation and was in a regular rhythm today. 06/14/2024 Barretts esophagus (ICD-10 - K22.70) He has had no dysphagia lately. He is followed by gastroenterology. His heartburn is well controlled. His colonoscopy is due next year. 08/30/2024 Coronary artery disease (ICD-10 - I25.10) Since his last visit he has had no angina or increase in dyspnea. He is able to walk 2 miles a day without chest pain. 12/29/2023 Atrial fibrillation (ICD-10 - I48.91) He has paroxysmal atrial fibrillation and was in a irThank youregular rhythm today. 03/08/2024 Hearing loss (ICD-10 - H91.90) His hearing loss is stable. He has benefited from the hearing aids. 06/14/2024 Atrial fibrillation (ICD-10 - I48.91) He has paroxysmal atrial fibrillation and was in a regular rhythm today. 08/30/2024 GERD (gastroesophageal reflux disease) (ICD-10 - K21.9) His reflux symptoms are well controlled with bzon-oxt-aqnmemt medication. 12/29/2023 Hearing loss (ICD-10 - H91.90) His hearing loss is stable. He has benefited from the hearing aids. 03/08/2024 Vitamin B12 deficiency (ICD-10 - E53.8) He has been compliant with his vitamin B12 supplementation. No change in his regimen was needed today. 06/14/2024 Hearing loss (ICD-10 - H91.90) His hearing loss is stable. He has benefited from the hearing aids. 08/30/2024 Barretts esophagus (ICD-10 - K22.70) He has had no dysphagia lately. He is followed by gastroenterology. His heartburn is well controlled. His colonoscopy is due next year. 12/29/2023 Former smoker (ICD-10 - Z87.891) He seemed highly motivated not to smoke. He has a plan to prevent relapse. 03/08/2024 Former smoker (ICD-10 - Z87.891) He seemed highly motivated not to smoke. He has a plan to prevent relapse. 06/14/2024 Former smoker (ICD-10 - Z87.891) He seemed highly motivated not to smoke. He has a plan to prevent relapse. 08/30/2024 Atrial fibrillation (ICD-10 - I48.91) He was in a slow controlled atrial fibrillation day with normal vital signs. 12/29/2023 Vitamin B12 deficiency (ICD-10 - E53.8) He has been compliant with his vitamin B12 supplementation. No change in his regimen was needed today. 03/08/2024 Overweight (BMI 25.0-29.9) (ICD-10 - E66.3) His body mass index is stable at 26. I reccomended she stabilize his weight at this level and then slowly reduce until his body mass index is in the normal range. 06/14/2024 Vitamin B12 deficiency (ICD-10 - E53.8) He has been compliant with his vitamin B12 supplementation. No change in his regimen was needed today. 08/30/2024 Hearing loss (ICD-10 - H91.90) His hearing loss is stable. He has benefited from the hearing aids. 12/29/2023 Parkinsons disease (ICD-10 - G20) He is being seen by the neurology department at [facility] who find he has a movement disorder and are calling and Parkinson's disease. 03/08/2024 Overweight (ICD-10 - E66.3) We discussed his diet and nutrition today. He will continue to exercise and restrict calories. 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 He is using a cane when he walks. He has had 2 falls without injuries. 08/30/2024 Former smoker (ICD-10 - Z87.891) He seemed highly motivated not to smoke. He has a plan to prevent relapse. 12/29/2023 Overweight (BMI 25.0-29.9) (ICD-10 - E66.3) His body mass index is stable at 26. I reccomended she stabilize his weight at this level and then slowly reduce until his body mass index is in the normal range. 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 He is using a cane when he walks. He has had 2 falls without injuries. 06/14/2024 Parkinsons disease (ICD-10 - G20) He is being seen by the neurology department at [facility] who find he has a movement disorder and are calling and Parkinson's disease. 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 He is using a cane when he walks. He has had 2 falls without injuries. 12/29/2023 Cerebellar ataxia (ICD-10 - G11.9) His ataxia appears to be the same. He is using a cane when he walks. He has had 2 falls without injuries. Plan Of Treatment Pending Test Test Name Order Date URINE DIP STICK 12/21/2022 PROFILE, FASTING (COMPREHENSIVE METABOLI C) 03/08/2024 PROFILE, FASTING (COMPREHENSIVE METABOLI C) 12/30/2021 PROFILE, FASTING (COMPREHENSIVE METABOLI C) 08/30/2023 PROFILE, FASTING (COMPREHENSIVE METABOLI C) 06/29/2020 PROFILE, FASTING (COMPREHENSIVE METABOLI C) 03/24/2023 PROFILE, FASTING (COMPREHENSIVE METABOLI C) 10/25/2018 PROFILE, FASTING (COMPREHENSIVE METABOLI C) 04/16/2018 PROFILE, FASTING (COMPREHENSIVE METABOLI C) 06/29/2022 PROFILE, FASTING (COMPREHENSIVE METABOLI C) 08/30/2024 PROFILE, FASTING (COMPREHENSIVE METABOLI C) 12/21/2022 PROFILE, FASTING (COMPREHENSIVE METABOLI C) 06/14/2024 PROFILE, RANDOM (COMPREHENSIVE METABOLIC ) 02/11/2021 LIPID PANEL 02/11/2021 LIPID PANEL 06/29/2020 LIPID PANEL 03/24/2023 LIPID PANEL 10/25/2018 LIPID PANEL 04/16/2018 LIPID PANEL 06/29/2022 LIPID PANEL 03/30/2022 VITAMIN B12 AND FOLATE 02/11/2021 B12 03/30/2022 B12 12/30/2021 B12 06/29/2020 B12 10/25/2018 B12 12/21/2022 B12 04/16/2018 PSA, TOTAL 03/24/2023 PSA, TOTAL 02/11/2021 PSA, TOTAL 06/29/2022 PSA, TOTAL 06/29/2020 PSA, TOTAL 10/25/2018 PSA, TOTAL 06/14/2024 PSA, TOTAL 04/16/2018 CBC w DIFF 06/29/2022 CBC w DIFF 06/29/2020 CBC w DIFF 10/25/2018 CBC w DIFF 04/16/2018 CBC w DIFF 03/30/2022 CBC w DIFF 12/30/2021 CBC w DIFF 03/24/2023 CBC w DIFF 02/11/2021 CBC w DIFF 12/21/2022 SCREENING COLONOSCOPY 07/12/2023 CBC WITH AUTO DIFF 06/14/2024 CBC WITH AUTO DIFF 03/08/2024 CBC WITH AUTO DIFF 08/30/2023 CBC WITH AUTO DIFF 08/30/2024 Lipid Panel 12/21/2022 Lipid Panel 06/14/2024 Lipid Panel 03/08/2024 Lipid Panel 08/30/2023 Lipid Panel 12/30/2021 Lipid Panel 08/30/2024 Vitamin B12 03/24/2023 Vitamin B12 08/30/2024 Vitamin B12 06/29/2022 Vitamin B12 03/08/2024 Vitamin B12 08/30/2023 Next Appt Details Provider Name:Jonny Ponce, 12/09/2024 10:00:00 AM, [address] [place] [address] [address], [place], [id number], Provider Name:Jonny Ponce, 06/19/2025 10:00:00 AM, [address] [place] [address] [address], [place], [id number], Insurance Providers Payer Name Payer Address Payer Phone Subscriber Number Group Number Insured Name Patient Relationship to Insured Coverage Start Date Coverage End Date MEDICARE NGS [address] [place] [address] [id number] Alexis Correa Self - patient is the insured [facility] [address] [place], [place] [id number] Alexis Correa Self - patient is the insured Medical (General) History Medical History History ICD Code paroxysmal AFIB/SVT, atypical chest pain gerd episodic diplopia hearing loss Jeffrey's esophagus Cerebellar ataxia Parkinson's disease Tremor Surgical History Surgery Date(Month/Year) repair right quadriceps tendon, Dr. Maegan brooks 10/2004 right biceps tendon repair 2001 left knee surgery 1992 Colonoscopy and Esophagogastroduodenosco py 11/25/2012 No history Hospitalization History Reason Date(Month/Year) No history
--- OUTSIDE RECORDS SUMMARY | 2024-11-15 13:44 | XMS_ITS ---
Author Organization Jonny Serra III, MD Address [address] [place] [address] [place] [address] Care Team Providers Care Pleat Taper Name Role Phone Jonny Serra Primary Care Provider Allergies Allergen (clinical drug ingredient) Drug/Non Drug Allergy documented on EMR Reaction Allergy Type Onset Date Status No Known Drug Allergy Unknown Drug Allergy Active REASON FOR VISIT Parkinson's disease, Cerebellar ataxia, GERD, Jeffrey's esophagus, Coronary artery disease, [id number] deficiency, Benign prostatic hypertrophy, Atrial fibrillation Medications Medication SIG (Take, Route, Frequency, Duration) Notes Start Date End Date Status Aspirin Adult Low Dose 81 MG 1 tablet Or ally Once a day Active Vitamin B12 Active KLS Omeprazole 20 MG 1 tablet Orally as needed for reflux Active metroNIDAZOLE 0.75 % APPLY EXTERNALLY TW O TIMES A DAY Active Verapamil HCl ER 120 mg TAKE [...] Non-User Ex-cigaret te smoker Vital Signs Temperature 99.1 degrees Fahrenheit 03/08/20 24 Blood pressure systolic 132 mm Hg 03/08/20 24 Blood pressure diastolic 74 mm Hg 024 Heart Rate 70 /min 03/08/2024 Height 71 in 03/08/2024 Weight 186 lbs 03/08/2024 BMI 25.94 kg/m2 03/08/2024 Encounters Encounter Location Date Provider Diagnosis Jonny Serra III, MD [address] [place] [address] [place] [address] 03/08/2024 Jonny Serra BPH (benign prostati c hyperplasia) N40.0 ; Coronary artery disease I25.10 ; GERD (gastroesophageal reflux disease) K21.9 ; Barretts esophagus K22.70 ; Atrial fibrillation I48.91 ; Hearing loss H91.90 ; Vitamin B12 deficiency E53.8 ; Former smoker Z87.891 ; Overweight (BMI 25.0-29.9) E66.3 ; Overweight E66.3 and 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 We discussed lifestyle modification as a way of reducing nocturia. 03/08/2024 Coronary artery disease (ICD-10 - I25.10) Since his last visit he has had no angina or increase in dyspnea. He is able to walk 2 miles a day without chest pain. 03/08/2024 GERD (gastroesophageal reflux disease) (ICD-10 - K21.9) His reflux symptoms are well controlled with [id number] medication. 03/08/2024 Barretts esophagus (ICD-10 - K22.70) He has had no dysphagia lately. He is followed by gastroenterology. His heartburn is well controlled. His colonoscopy is due next year. 03/08/2024 Atrial fibrillation (ICD-10 - I48.91) He has paroxysmal atrial fibrillation and was in a regular rhythm today. 03/08/2024 Hearing loss (ICD-10 - H91.90) His hearing loss is stable. He has benefited from the hearing aids. 03/08/2024 Vitamin B12 deficiency (ICD-10 - E53.8) He has been compliant with his vitamin B12 supplementation. No change in his regimen was needed today. 03/08/2024 Former smoker (ICD-10 - Z87.891) He seemed highly motivated not to smoke. He has a plan to prevent relapse. 03/08/2024 Overweight (BMI 25.0-29.9) (ICD-10 - E66.3) His body mass index is stable at 26. I reccomended she stabilize his weight at this level and then slowly reduce until his body mass index is in the normal range. 03/08/2024 Overweight (ICD-10 - E66.3) We discussed his diet and nutrition today. He will continue to exercise and restrict calories. 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 He is using a cane when he walks. He has had 2 falls without injuries. Plan Of Treatment Medication Medication Name Sig Start Date Stop Date Notes Aspirin Adult Low Dose 81 MG 1 tablet Orally Once a day Vitamin B12 KLS Omeprazole 20 MG 1 tablet Orally as needed for reflux metroNIDAZOLE 0.75 % APPLY EXTERNALLY TW O TIMES A DAY Verapamil HCl ER 120 mg TAKE 1 TABLET DAILY Pending Test Test Name Order Date PROFILE, FASTING (COMPREHENSIVE METABOLI C) 03/08/2024 CBC WITH AUTO DIFF 03/08/2024 Lipid Panel 03/08/2024 Vitamin B12 03/08/2024 Next Appt Details Follow Up: 3 Months, Reason: OV Provider Name:Jonny Serra, 12/09/2024 10:00:00 AM, [address] [place] [address] JENNIFER NAVARRETE, [place], [id number], Provider Name:Jonny Serra, 06/19/2025 10:00:00 AM, [address] [place] [address] JENNIFER NAVARRETE, EMMANUEL [place]IREZ, [id number], Progress Notes * Aelxis HESS ADOB:1944 (79 yo M)Acc No.[id number]:03/08/2024 Progress Notes Patient:?SunnyAlexis A Provider:?Jonny Serra MD :1945???Age:79 Y???Sex:Male Brice e:03/08/2024 Address:[address] [place] [address] LILI VASQUES [id number] Subjective: * Chief Complaints: * ???Parkinson's diseaseCerebe llar ataxiaGERDBarrett's esophagusCoronary artery diseaseVitamin B12 deficiencyBenign prostatic hypertrophyAtrial fibrillation * HPI: ???COVID-19 Screening:? He returns ffor a scheduled visit to manage numerous neurological and cardiovascular issues. Since his last visit he amador had cataract surgery with which she is pleased. He wears glasses to drive. He was in sinus rhythm today. He reports that his exercise tolerance continues to diminish but he still walks daily for a mile on the treadmill.He has had no injuriies or falls recently.He uses a cane all of the time when walking. He has had no chest pain or shortness of breath. He has been compliant with all of his medications. ?Questions?Have you experienced fever, chills, cough, sore throat, shortness of breath, difficulty breathing, muscle aches, loss of taste or smell??No ?Have you been exposed to the virus within the last 10 days??No ?Have you travelled internationally in the last 10 days??No ?Have you been exposed to COVID-19 in the past??No * ROS:?General/Constitutional:?pain?only normal aches and pains.?Chills?denies.?Fatigue?admits.?Fever?denies.?ENT:?Decreased hearing?in both ears.?Respiratory:?Cough?denies.?Cardiovascular:?Chest pain with exertion?denies.?Dyspnea on exertion?with prolonged activity.?Shortness of breath?that is mild.?Gastrointestinal:?Constipation?denies.?Decreased appetite?denies.?Diarrhea?denies.?Heartburn?denies.?Nausea?denies.?Rectal bleeding?denies.?Vomiting?denies.?Hematology:?bruising?denies.?petechiae?denies.?Swollen glands?none have been noted.?Genitourinary:?Frequent urination?once a night.?Musculoskeletal:?Muscle aches?denies.?Painful joints?denies.?Sciatica?denies.?Weakness?denies.?Skin:?Itching?denies.?Rash?denies.?Skin lesion(s)?denies.?Neurologic:?Difficulty speaking?denies.?Dizziness?denies.?Headache?denies.?Low back pain?denies.?Psychiatric:?Depressed mood?denies.? * Medical History:? * Surgical History:?repair rig [...] Tobacco Non-User?Ex-cigarette smoker ???He works in the [employer] Department at [employer]. He has been to [place] for 20 years and has 2 children, a son and a daughter. He has 4 grandchildren and lives in [place]. He was born in [place], [place]. * Medications:?TakingVerapamil HCl ER 120 mg Tablet Extended Release TAKE 1 TABLET DAILY Aspirin Adult Low Dose 81 MG Tablet Delayed Release 1 tablet Orally Once a dayKLS Omeprazole 20 MG Tablet Delayed Release 1 tablet Orally as needed for refluxVitamin B12 metroNIDAZOLE 0.75 % Gel APPLY EXTERNALLY TWO TIMES A DAY Taking Verapamil HCl ER 120 mg Tablet Extended Release TAKE 1 TABLET DAILY Taking Aspirin Adult Low Dose 81 MG Tablet Delayed Release 1 tablet Orally Once a dayTaking KLS Omeprazole 20 MG Tablet Delayed Release 1 tablet Orally as needed for refluxTaking Vitamin B12 Taking metroNIDAZOLE 0.75 % Gel APPLY EXTERNALLY TWO TIMES A DAY DiscontinuedVerapamil HCl ER 120 MG Tablet Extended Release TAKE 1 TABLET BY MOUTH TWICE DAILY twice a dayMedication List reviewed and reconciled with the patientDiscontinued Verapamil HCl ER 120 MG Tablet Extended Release TAKE 1 TABLET BY MOUTH TWICE DAILY twice a dayMedication List reviewed and reconciled with the patient * Allergies:?No Known Drug All ergyno[Allergies Verified] Objective: * Vitals:?Ht: 71, Wt:186, BMI: 25.94, BP:132/74, HR:70, Temp:99.1, Wt-k.37. * Examination: ???General Examination: ?GENERAL APPEARANCE:?pleasant, well nourished, well developed, in no acute distress, calm and relaxed , overweight , man.?HEAD:?atraumatic, normocephalic.?EYES:?eomi, perrla, anicteric, conjugate, Recent cataract surgery.?EARS:?normal.?NOSE:?septum intact.?ORAL CAVITY:?normal, unremarkable.?NECK/THYROID:?no jugular venous distention, no [...] upper and lower extremities, sensory exam intact, ataxic gait unchanged uses cane.?PSYCH:?alert, oriented , mood depressed.? Assessment: * Assessment: 1.?BPH (benign prostatic hyp erplasia) - N40.0, He arises from sleep once or twice a night to urinate. We discussed lifestyle modification as a way of reducing nocturia.?2.?Coronary artery disease - I25.10, Since his last visit he has had no angina or increase in dyspnea. He is able to walk 2 miles a day without chest pain.?3.?GERD (gastroesophageal reflux disease) - K21.9, His reflux symptoms are well controlled with [id number]-[id number] medication.?4.?Barretts esophagus - K22.70, He has had no dysphagia lately. He is followed by gastroenterology. His heartburn is well controlled. His colonoscopy is due next year.?5.?Atrial fibrillation - I48.91, He has paroxysmal atrial fibrillation and was in a regular rhythm today.?6.?Hearing loss - H91.90, His hearing loss is stable. He has benefited from the hearing aids.?7.?Vitamin B12 deficiency - E53.8, He has been compliant with his vitamin B12 supplementation. No change in his regimen was needed today.?8.?Former smoker - Z87.891, He seemed highly motivated not to smoke. He has a plan to prevent relapse.?9.?Overweight (BMI 25.0-29.9) - E66.3, His body mass index is stable at 26. I reccomended she stabilize his weight at this level and then slowly reduce until his body mass index is in the normal range.?10.?Overweight - E66.3, We discussed his diet and nutrition today. 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 He is using a cane when he walks. He has had 2 falls without injuries.? Plan: * Treatment: 2.?Vitamin B12 deficiency?LAB: PROFILE, [...] dangers of tobacco use and urged to quit.?03/08/2024 * Follow Up:?3 Months (Reason: OV) * Images: * Sign off status: Completed true * Provider:?Jonny Serra MD Date:?01/2024 Generated for Epi schuster/Dinorah/eTransmitting on:?11/15/2024 01:44 PM EST History and Physical Notes * HPI (History of Present Illness) Category Sub-Category Detail Notes COVID-19 Screening Questions Have you had any new onset fever, chills, cough, congestion, sore throat, shortness of breath, muscle aches?: No Have you been exposed to the virus withi n the last 10 days?: No Have you travelled internationally in [facility] last 10 days?: No Have you been exposed to COVID-19 in the past?: No Examination Category Sub-Category Detail Notes General Examination GENERAL APPEARANCE: pleasant , well nourished, well developed, in no acute distress, calm and relaxed , overweight , man HEAD: atraumatic, normocep halic EYES: eomi, perrla, anicte josé antonio, conjugate, Recent cataract surgery EARS: normal NOSE: septum intact NECK/THYROID: no [...] upper and lower extremities, sensory exam intact, ataxic gait unchanged uses cane SKIN: no suspicious lesion s, anicteric PERIPHERAL PULSES: normal BREASTS: no masses palpable b ilaterally MUSCULOSKELETAL: extremities unremark able, no clubbing, cyanosis or edema LYMPH NODES: no enlarged lymph no smith,spleen normal RECTAL EXAM: not examined PSYCH: alert, oriented , mo od depressed ORAL CAVITY: normal, unremarkable
--- OUTSIDE RECORDS SUMMARY | 2024-11-15 13:44 | XMS_ITS | Patient Health Record ---
Author Organization [facility] Address [address] [place] [phone] Care Team Providers Care Ham Passer Name Role Phone Jonny Serra MD Primary Care Provider Unavailab Jonny Shelley Unavailable [phone] ALLERGIES No Known Allergies REASON FOR REFERRAL No Information MEDICATIONS Medication SIG (Take, Route, Frequency, Duration) Notes Start Date End Date Status Flecainide Acetate 100mg Active Aspirin 325 MG 1/2 tablet Orally On ce a day Active Vitamin B 12 100 MCG as directed Orally Active Verapamil HCl 120mg Active Omeprazole 20mg Acti ve IMMUNIZATIONS Vaccine Route Administration Date Status Comme nts Influenza Unknown 09/27/2022 Administered SOCIAL HISTORY Sex Assigned At : Social History Observation Description Sex Assigned At Unknown PROBLEMS Problem Type ICD Code Onset Dates Problem Status W/U Status Risk SNOMED Code Notes Problem Colon cancer screening (Z12.11) Active confirmed 767718835 Problem Esophageal reflux (K21.9) Active confirmed Esophageal reflux (998529201) Problem Gastroesophageal reflux disease without esophagitis (K21.9) Active confirmed [id number] Problem Barretts esophagus without dysplasia (K22.70) Active confirmed 960746694 Problem Gastric polyp (K31.7) Active confirmed Gastric polyp (04914614) Problem 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) Active confirmed Jeffrey esophagus (646183797) Problem Abnormal CT scan, sigmoid colon (R93.3) Active confirmed 206501902 Problem Diverticulosis of colon (K57.30) Active confirmed Diverticulosi s of colon (081720097) PLAN OF TREATMENT Pending Test Test Name Order Date BUN 12/31/2017 CREATININE 12/31/2017 Future Test Test Name Order Date UPPER GI ENDOSCOPY 01/05/2016 UPPER GI ENDOSCOPY 04/28/2023 COLONOSCOPY 04/28/2023 Insurance Providers Payer Name Payer Address Payer Phone Subscriber Number Group Number Insured Name Patient Relationship to Insured Coverage Start Date Coverage End Date [place] [address] [place] [id number] [id number] DESHAWNALBERTINA Self - patient is the insured [employer] ATT[employer] CLAIMS [address] [place] [address] [id number] ALBERTINA HESS Self - patient is the insured MEDICAL (GENERAL) HISTORY Medical History History ICD Code Neg. colonoscopy in 2001 and November 3, except diverticulosis Hypertension Atrial fib Denies MD,DM,CVA,Lung disease,renal dise ase GERD--upper endoscopy in Nov of 2012 revealed a small hiatal hernia and small area of Jeffrey's esophagus-there was no evidence of any esophagitis nor dysplasia on the biopsies. Neg. ETT [address] 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 [facility] Surgical History Surgery Date(Month/Year) Surgery for right biceps tendon repair Left knee surgery Torn right quadriceps
[2024-11-15 14:05] VITALS: BMI 26.1
--- NOTE | 2024-11-15 14:05 | A.OFFVIS_ITS ---
Vital Signs 11/15/24 14:05 Height 5 ft 10 in Weight 182 lb BMI 26.1 Intake Visit Reasons: 4 month f/u Intake Note: Patient presents for 4 month follow up Allergies No Known Allergies [No Known Allergies*] Allergy (Verified 11/15/24 14:11) HPI Comments Details: 79-yr-old male presents for f/u visit, accompanied his . Pt denies any significant interval medical history changes. Pt's current PD medication regimen: CD-LD 25-100mg 1 tab bid- at 7am and 5pm. He is not sure if he notices wearing off or kicking in. ADL's: Ind. notices a slight decrease in ability to manage his TV remote. IADLs: Ind Swallowing: No recent choking. Has [employer] eval in Dec.. Drooling: Increased saliva production but not so much drooling. Orthostatic lightheadedness: None. Constipation: None Freezing: None Stiffness: Can be stiff if he has sat or stood still for too long. Tremor: Occassionally has left 2nd toe tremor. Gatit: takes more practice to get up from a chair. He may feel more off balance especially when turning his upper body. Falls: Some close calls- when turning his head/upper body. No actual falls. Occasionally has festinating gait if he pushes his walking too hard- is able to reduce this by paying attention to early signs. Hallucinations: Denies Memory: May have senior moments , looking for a word. A bit more aphasia. Sleep: He is sleeping more hours a night, but feels it is more difficulty to get up in the am- which is making it more diffiult to do his morning exercises- now exercising in the afternoon. Now taking daytime naps when not at work. Has never had a sleep study. Exercise: Doing more PD exercises. Walking on the treadmill. Other: Sometimes his head feels bloated a/w brain fog and legs feel tired, especially in the cold, where he does not feel like doing something, but takes a walk and and it resolves. [facility] Medical History Ataxia Movement disorder HTN (hypertension) GERD (gastroesophageal reflux disease) Atrial fibrillation Surgical History History of surgery on lower extremity History of surgery on arm History of knee surgery History of radiofrequency ablation (RFA) procedure for cardiac arrhythmia Family History Mother Ovarian ca Cerebellar ataxia Father Heart abnormality Social History Alcohol intake: current Alcohol intake frequency: a few times a week Alcohol type: wine Patient Tobacco Use Status: Former Tobacco user Physical Exam Vital Signs: BMI result Body Mass Index 26.1 Const General: cooperative and no acute distress Resp Effort & Inspection: normal respiratory effort and able to speak in complete sentences Neuro Other: General: A&O x's Expression: Mild decreased expression and blink Voice: Soft Tremor: No left postural tremor today Tone: BUE, left greater than right, elbow tone BUE ZIA: Poor fluidity, more so on right Dyskinesia: None FFM: Decreased on left Foot taps: Decreased fluidity on left Gait: Stands easily, steady or upon standing, slight stoop, no arm swing, narrow base, short steps w/ cane Assessment & Plan Assessment & Plan (1) Parkinson's disease without dyskinesia: Code(s): G20.A1 - Parkinson's disease without dyskinesia, without mention of fluctuations Category: Medical (2) Gait difficulty: Code(s): R26.9 - Unspecified abnormalities of gait and mobility Category: Medical Plan Continue CD-LD 25-100mg 1 tab bid- may try dressing from 07:00 and 17:00 to 07:00 and 13:22. Advised to be mindful to turn slowly, using his whole body. Continue regular physical and cognitively stimulating activities. Monitor sleep, future considerations sleep study. ? f/u in 6 months or sooner prn. Coding Level of Care Code Est Pt Level 4 (26216) Diagnoses Parkinson's disease without dyskinesia G20.A1 Gait difficulty R26.9
== END 2024-11-15 15:20 | disposition home or self-care (01) ==
PROVIDERS: PCP Internal Medicine Medical Oncology; Visit Provider Nurse Practitioner Family
DX: G20.A1 Parkinson's disease without dyskinesia, without mention of fluctuations (principal); R26.9 Unspecified abnormalities of gait and mobility
CPT/HCPCS: 99214

== ENCOUNTER → 2024-11-15 13:41 | Outpatient (BNVA) | payer MEDICARE, SELFPAY | PROVIDERS: PCP Internal Medicine Medical Oncology; Visit Provider Nurse Practitioner Family | DX: G20.A1 Parkinson's disease without dyskinesia, without mention of fluctuations (principal); R26.9 Unspecified abnormalities of gait and mobility | CPT/HCPCS: 99212 ==

== ENCOUNTER 2024-12-25 12:26 | Outpatient (RCR) | payer MEDICARE, SELFPAY ==
--- NOTE | 2025-01-01 15:19 | MHC.SP.ADU ---
Referring provider: Dr. Serra Reason for Referral: Parkinson's Disease Type of Treatment: 49260 Behavioral and Qualitative Analysis of Voice and Resonance Date of Plan of Treatment: 12/25/24 Onset of Symptoms/Illness: 12/07/22 Date Treatment Started: 12/25/24 Medical Diagnosis: Parkinson's Disease, Cerebellar Ataxia, Sensorineural Hearing Loss Primary Speech Language Diagnosis: G20 Parkinson?s disease Secondary Speech Language Diagnosis: R49.0 Dysphonia History Alexis Correa is a 79 year old man who was referred today by his PCP under somewhat confusing circumstances. Cameron reported that he was surprised when he was called by this clinic to book this evaluation and came to see what it was all about. The referral information indicated that the concern was Apraxia due to Cameron's previous diagnosis of Cerebellar Ataxia and possibly related to his Parkinson's disease. Cameron presented today with very clear, and articulate speech, so he then speculated his physician interpreted his complaint that he has difficulty being understood in this way. His intention with this observation was more related to his voice and volume, as well as some related needs with his hearing. With regard to his medical history, Cameron reported that he saw a Neurologist at [facility] about eight years ago due to having balance issues, and after stating that his Grandmother had Cerebellar Ataxia, the Neurologist presumed this was also the issue for Cameron. Approximately two years ago, he saw the PA at Dr. Reich's office([facility]), who diagnosed him with Parkinson's Disease, with the advice that it was likely this was the primary diagnosis all along (e.g. Cameron reports he does not believe he has cerebellar ataxia). Cameron has been on medication for PD since his more recent visit to the different neurologist which has been helpful to him. Cameron reports he has never seen an ENT regarding his vocal issues, and further stated he does not have any issues with memory or cognition related to his Parkinson's. He reported his issues with his voice have been increasing over time and that at times others have difficulty understanding him. He reports that at work, when his team has meetings, they disperse to their offices and use [employer] Meet to engage in discussion, which amplifies his voice adequately to be understood. 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 He stated that public speaking was never something he took pleasure in. Cameron has sensorineural hearing loss, and wears bilateral in the ear hearing aids and receives audiological services at this clinic. Even with these aids, he reports he very frequently had difficulty understanding others, and is aware that the issue is with high frequency speech sounds (s, f, v, ch, sh). He also reports frustration with hearing others with competing/background noise and difficulty with television watching (easier if the presenter is male with a deeper voice). 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 Assistive Devices in use: Cane, Hearing Aids, Glasses Past Speech Language Therapy: None Other Therapies Seen in Current Calendar Year: Physical Therapy Reported Speech, Language, Cognition difficulties: Voice Comments: Cameron has concerns about his voice and vocal volume associated with his Parkinson's Disease. Quality of Life: Excellent Patient Stated Goal of Speech-Language Therapy: Assess and determine goals for therapeutic intervention. Assessment Speech Production: Articulate Within Functional Limits Clinical Impression: Intact Observations: Cameron presents with clearly articulated speech well within functional limits. Subsequently, specific speech testing was not completed as a part of this evaluation. Informal Voice Assessment: Voice Loudness: Moderately Soft/Quiet Voice Nasal Resonance: Normal Voice Oral Resonance: Normal Voice Phonatory-based Quality: Breathy,Hoarse Voice Pitch: Normal Voice Other Observations: Clinical Impression: Impaired Clinicial Observations: Cameron presented as cooperative and curious about this vocal assessment. Cameron was administered the Consensus Auditory Perceptual Evaluation of Voice (CAPE-V). On this evaluation, Cameron demonstrated mildly reduced ratio of voiceless v. voiced phonation (S/Z Ration) of .75 evidencing difficulty sustaining phonation on the voiced phoneme /z/. When producing sustained continuous phonation of speech sounds a hoarse/breathy vocal quality was noted as was reduced vocal volume. When producing normal speech of targeted speech sounds in phonemically balanced sentences, a moderately hoarse/breathy vocal quality with mildly reduced vocal volume was noted. When asked to vary volume, Cameron had difficulty with both raising and lowering his volume. On pitch variation, Cameron demonstrated reduced range, with wavering/pitch breaks noted both on higher notes and lower notes. Cameron produced a normal diadochokinetic rate, but needed some specific cuing for the sounds required due to his hearing issues. Summary/Conclusions: Cameron presents with moderate dysphonia characterized by hoarse/breathy vocal quality, reduced volume and difficulty with increasing vocal volume. Cameron's vocal hoarseness is likely secondary to reduced breath support and generalized weakness secondary to his Parkinson's diagnosis. Cameron's hearing impairment may additionally be contributing to his perception of vocal volume. Impressions and Recommendations Summary: Cameron presents with moderate dysphonia characterized by hoarse/breathy vocal quality, reduced volume and difficulty with increasing vocal volume.? Cameron's vocal hoarseness is likely secondary to reduced breath support and generalized weakness secondary to his Parkinson's diagnosis.? Cameron's hearing impairment may additionally be contributing to his perception of vocal volume.? The therapy intervention of LSVT LOUD was discussed with Cameron at the conclusion of today's session.? This intervention is a well documented therapy approach to improving vocal volume and vocal/respiratory strength associated with Parkinson's Disease.? It is, however, a highly prescriptive approach, requiring an intensive, one month period of intervention with hour long therapy sessions four days weekly with daily homework/carryover requirements.? This clinic has two therapists who are certified to provide this therapy and who collaboratively offer treatment, however there is currently a months long waiting list for this intervention.? Cameron appeared to be open to this recommendation for therapy, however, when advised about the waiting list and the possibility of being able to receive this treatment closer to his home in [place] with a different provider ([facility]), he indicated that this might be preferable to him. ? It is recommended that this approach to therapy be provided for Cameron, whether at this clinic or at S.? His PCP will be advised that Cameron has a preference and will need a referral to a different provider. Impact on Daily Function/Activity Limitations: Daily Activities: Moderate Interpersonal Interactions: Moderate Education: Employment: Moderate Community: Moderate Prognosis for Improvement: Good Comment: Cameron has received no previous intervention for his vocal needs. Recommendation for Speech Therapy: Outpatient Speech Therapy Comment: Cameron presents with moderate dysphonia characterized by hoarse/breathy vocal quality, reduced volume and difficulty with increasing vocal volume.? Cameron's vocal hoarseness is likely secondary to reduced breath support and generalized weakness secondary to his Parkinson's diagnosis. It is recommended Cameron participate in a month long intensive therapy approach to Parkinson's associated voice intervention:? LSVT LOUD.? This approach prescribes hour long therapy sessions four times weekly for four consecutive weeks, with home carryover activities daily.? Goals indicated below are specific to this therapeutic intervention. Frequency/Duration: Four weekly, hour long sessions Date Range for Service Requested: One month (16 sessions) Time to Reassess: PRN Junior Electrical Engineer Goals: Cameron will increase vocal volume and vocal clarity using LSVT interventions for conversational and functional speech as observed in 4/5 contexts. Short Term Goals: Goal # : 1.1 Cameron will sustain an open vowel sound at normal vocal volume range (SPL >80) for greater than 10 seconds in ten trials 1.2 Cameron will sustain an open vowel sound with a scale to an increased pitch with vocal volume range of SPL 70-80 for at least five seconds in ten trials 1.3 Cameron will sustain an open vowel with a scale to a decreased pitch with vocal volume range of HEARING SCREENER 70-80 for at least five seconds in ten trials. Goal Status: Goal# : 2.1 Cameron will produce and sustain normal vocal volume range (UHU23-85) when producing functional words in ten trials 2.3 Cameron will produce and sustain normal vocal volume range (NIH74-08) when producing functional communication phrases in ten trials Goal Status: Goal # : 3.1 Cameron will produce and sustain normal vocal volume range (UPW29-55) when reading a paragraph length passage 3.2 Cameron will produce and sustain normal vocal volume range (QPN21-13) when engaged in conversational speech 3.3 Cameron will produce and sustain normal vocal volume range (MHO22-93) when engaged in functional communication activities (e.g. speaking on the phone, communicating in community contexts) Goal Status: Recommended Referrals to be Discussed with Primary Care Provider: [facility] Patient Education: Completed: Yes Patient/Caregiver Education: Described Results of Evaluation Patient expressed understanding of evaluation Patient agrees with goals and treatment plan Comments/Barriers to Learning: Office Nurse Clinican/Clinical Fellow: No Supervisory Statement: N/A Speech Language Pathologist: Renetta Cabello M.A., CCC-HEARING SCREENER
== END 2025-09-03 14:17 | disposition home or self-care (01) ==
LOC: HO.SH 12:26
PROVIDERS: Visit Provider Internal Medicine Medical Oncology
DX: G20.C Parkinsonism, unspecified (principal); R48.2 Apraxia
CPT/HCPCS: 92524

== ENCOUNTER 2025-05-13 07:52 | Outpatient (REF) | payer MEDICARE, SELFPAY ==
--- OUTSIDE RECORDS SUMMARY | 2024-12-09 06:00 | XMS_ITS ---
Author Organization Jonny Serra III, MD Address [address] [place] [address] Care Team Providers Care Meals On Wheels Driver Name Role Phone Jonny Serra Primary Care [...] Date Provider Diagnosis Jonny Serra III, MD [address] [place] [address] [place] [address] 12/09/2024 Jonny Serra Vitamin B12 deficien cy [...] being seen by the neurology department at [facility] who find he has a movement [...] Exam Provider Name:Jonny Serra, 06/19/2025 10:00:00 AM, [address] [place] [address] , [place] [address], [place], [address], Progress Notes * Alexis HESS ADOB:1944 (79 yo M)Acc No.[id number]:12/09/2024 Progress Notes Patient: Alexis ALARCON Provider: Hardy Serra MD :1945 A ge:79 Y S ex:Male Date:12/09/2024 Address:[address] [place] [address] [id number] Subjective: * Chief Complaints: * P arkinson's [...] 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 He has been to Laine George for 20 years and has 2 children, a son and a daughter. He has 4 grandchildren and lives in [place]. He was born in [place], [place]. * Medications: T akingVerapamil HCl [...] being seen by the neurology department at [facility] who find he has a movement [...] 12/09/2024 Generated for Epi schuster/Dinorah/Nelly on: 0 05/13/2025 07:53 AM EDT History and Physical Notes * HPI [...]
--- OUTSIDE RECORDS SUMMARY | 2025-05-13 07:54 | XMS_ITS | Patient Health Record ---
Author Organization [facility] Address [address] [place] [address] Care Team Providers Care Chip Bin Operator Name Role Phone Jonny Serra MD Primary Care Provider Unavailab Jonny Shelley Unavailable [phone] Allergies No Known Allergies Reason For Referral No Information Medications Medication SIG (Take, Route, Frequency, Duration) Notes Start Date End Date Status Flecainide Acetate 100mg Active Aspirin 325 MG 1/2 tablet Orally On ce a day Active Vitamin B 12 100 MCG as directed Orally Active Verapamil HCl 120mg Active Omeprazole 20mg Acti ve Immunizations Vaccine Route Administration Date Status Comme nts Influenza Unknown 09/27/2022 Administered Problems Problem Type SNOMED Code ICD Code Onset Dates Problem Status W/U Status Risk Notes Problem 267969058 Colon cancer screening (Z12.11) Active confirmed Problem Esophageal reflux (118020579) Esophageal reflux (K21.9) Active confirmed Problem 950433524 Gastroesophageal reflux disease without esophagitis (K21.9) Active confirmed Problem 459079473 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) Active confirmed Problem Gastric polyp (43546146) Gastric polyp (K31.7) Active confirmed Problem 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) Active confirmed Problem 203603216 Abnormal CT scan , sigmoid colon (R93.3) Active confirmed Problem Diverticulosis of colon (034396404) Diverticulosis of colon (K57.30) Active confirmed Plan Of Treatment Pending Test Test Name Order Date BUN 12/31/2017 CREATININE 12/31/2017 Future Test Test Name Order Date UPPER GI ENDOSCOPY 01/05/2016 UPPER GI ENDOSCOPY 04/28/2023 COLONOSCOPY 04/28/2023 Insurance Providers Payer Name Payer Address Payer Phone Subscriber Number Group Number Insured Name Patient Relationship to Insured Coverage Start Date Coverage End Date [place] [address] [place] [id number] ALBERTINA HESS Self - patient is the insured [employer] ATT[employer] CLAIMS [address] [place] [address] [id number] ALBRETINA HESS Self - patient is the insured Medical (General) History Medical History History ICD Code Neg. colonoscopy in 2001 and November, except diverticulosis Hypertension Atrial fib Denies ND,DM,CVA,Lung disease,renal dise ase GERD--upper endoscopy in Nov revealed a small hiatal hernia and small area of Jeffrey's esophagus-there was no evidence of any esophagitis nor dysplasia on the biopsies. Neg. ETT [address] 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 [facility] Surgical History Surgery Date(Month/Year) Surgery for right biceps tendon repair Left knee surgery Torn right quadriceps
== END 2025-05-13 07:53 | disposition home or self-care (01) ==
LOC: HO.SH 07:52
PROVIDERS: Visit Provider Internal Medicine Medical Oncology
DX: Z01.118 Encounter for examination of ears and hearing with other abnormal findings (principal); H90.3 Sensorineural hearing loss, bilateral
CPT/HCPCS: 92557

== ENCOUNTER 2025-05-13 08:50 | Outpatient (REF) | payer SELFPAY | END 2025-05-13 08:51 | disposition home or self-care (01) | LOC: HO.HAP 08:50 | PROVIDERS: PCP Internal Medicine Medical Oncology; Visit Provider Internal Medicine Medical Oncology | DX: Z46.1 Encounter for fitting and adjustment of hearing aid (principal); H90.3 Sensorineural hearing loss, bilateral | CPT/HCPCS: 92593 ==

== ENCOUNTER 2025-05-22 12:37 | Outpatient (AMB) | payer MEDICARE, SELFPAY ==
--- OUTSIDE RECORDS SUMMARY | 2024-12-09 06:00 | XMS_ITS ---
Author Organization Jonny Serra III, MD Address [address] [place] [address] [place] [address] Care Team Providers Care Automobile Appraiser Name Role Phone Jonny Serra Primary Care [...] Date Provider Diagnosis Jonny Serra III, MD [address] [place] [address] [place] [address] 12/09/2024 Jonny Serra Vitamin B12 deficien cy [...] being seen by the neurology department at [facility] who find he has a movement [...] Scheduled, Fransisca son: Annual Exam Provider Name:Jonny Serra, 06/19/2025 10:00:00 AM, [address] [place] [address] , [place] [address], [place], [address], Progress Notes * Alexis HESS ADOB:1944 (79 yo M)Acc No.[id number]:12/09/2024 Progress Notes Patient: Alexis ALARCON Provider: Hardy Serra MD :1945 A ge:79 Y S ex:Male Date:12/09/2024 Address:[address] [place] [address] [id number] Subjective: * Chief Complaints: * P arkinson's [...] x-cigarette smoker 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 He has been to Laine George for 20 years and has 2 children, a son and a daughter. He has 4 grandchildren and lives in [place]. He was born in [place], [place]. * Medications: T akingVerapamil HCl [...] being seen by the neurology department at [facility] who find he has a movement [...] MD Date: 0 12/09/2024 Generated for Epi schuster/Dinorah/Nelly on: 0 05/22/2025 01:04 PM EDT History and Physical Notes * HPI (History [...]
[2025-05-22 12:55] VITALS: BP 110/70; PULSE 87; O2SAT 97; BMI 26.1
--- NOTE | 2025-05-22 12:55 | A.OFFVIS_ITS ---
Vital Signs 05/22/25 12:55 Height 5 ft 10 in Weight 182 lb BMI 26.1 BP 110/70 Blood Pressure Location Rt brachial Position Sitting Pulse 87 Pulse Source Pulse Oximeter Pulse Oximetry (%) 97 Oxygen Delivery Method Room Air Intake Visit Reasons: Follow Up 6mo Rack Room Worker Required: No Accompanied by: Spouse Allergies No Known Allergies (No Known Allergies*) Allergy (Verified 05/22/25 12:58) Medication List - Last Reconciled 05/22/25 by IVAN Rodriguez aspirin (Adult Aspirin Regimen) 81 mg PO DAILY carbidopa-levodopa 25-100 mg 1 tab PO TID 90 days omdxluqi-aer-ekhrk acid-lutein 400-250 mcg (Centrum Silver) 1 tab PO DAILY omeprazole 1 tab PO DAILY verapamil 60 mg PO DAILY vitamin B complex (B Complex-Vitamin B12 tablet) 1 tab PO DAILY HPI Comments Details: 79-yr-old male presents for f/u visit, accompanied his . Pt denies any significant interval medical history changes. Pt reports his PD s/s are a little worse. He describes this as more unsteadiness or prone to almost falls (where he has to grab something to brace himself), which resolves with taking a walk. No actual falls. His notes that pt is complaining more about being off-balance. She also states it takes pt longer to transition from sitting for some time to begin moving again. She notes that he needs more focus when walking, and if distracted this can affect his balance. Pt's current PD medication regimen: CD-LD 25-100mg 1 tab bid- at 7am and 5pm. Patient states, recently he had a day where it took more effort to do his usual walk, and then he realized that he never took his morning dose CD-LD. ADL's: Ind. IADLs: Ind. He is still employed in [employer]. Swallowing: No recent choking. Had MACHINERY RIGGER cristiana, but has not started the therapy yet. Drooling: Yes Orthostatic lightheadedness: None. Constipation: None Freezing: None Stiffness: Can be stiff if he has sat or stood still for too long. Tremor: Occasionally has left 2nd or now 3rd toe tremor. Gait: unsteadiness as above Falls: Some close calls- as above Hallucinations: Denies Memory: A bit more difficulty with articulation and word finding. Sometimes loses his train of thought while speaking. Sleep: He is fine . At times, takes daytime naps when not at work. Has never had a sleep study. Exercise: Doing PD exercises. Walking on the treadmill. Dermatological: Followed by dermatology Other: He has not had any recent episodes of head feels bloated a/w brain fog and legs feel tired, especially in the cold, where he does not feel like doing something, but takes a walk and and it resolves. feels this is likely d/t seasonal allergies which have passed no that is summer. [facility] Medical History Ataxia Movement disorder HTN (hypertension) GERD (gastroesophageal reflux disease) Atrial fibrillation Surgical History History of surgery on lower extremity History of surgery on arm History of knee surgery History of radiofrequency ablation (RFA) procedure for cardiac arrhythmia Family History Mother Ovarian ca Cerebellar ataxia Father Heart abnormality Social History Alcohol intake: current Alcohol intake frequency: a few times a week Alcohol type: wine Patient Tobacco Use Status: Former Tobacco user Physical Exam Vital Signs: Last Vital Signs Pulse 87 05/22/25 12:55 BP 110/70 05/22/25 12:55 Pulse Ox 97 05/22/25 12:55 Oxygen Delivery Method Room Air 05/22/25 12:55 BMI result Body Mass Index 26.1 Const General: cooperative and no acute distress Resp Effort & Inspection: normal respiratory effort and able to speak in complete sentences Neuro Other: General: A&O x's, hard of hearing-improved with hearing aids on Expression: Mild decreased expression and blink Speech: Intermittent mild bradyphrenia Voice: Soft Tremor: Mild intermittent left postural tremor today Tone: BUE, left greater than right, elbow tone Dyskinesia: None FFM: Decreased on left Foot taps: Decreased on left Gait: Stands easily, more unsteady upon standing, slight stoop, no arm swing, narrow base, short steps w/ cane Assessment & Plan Assessment & Plan (1) Parkinson's disease without dyskinesia: Code(s): G20.A1 - Parkinson's disease without dyskinesia, without mention of fluctuations Category: Medical Qualifiers: Fluctuating manifestations: without fluctuating manifestations Qualified Code(s): G20.A1 - Parkinson's disease without dyskinesia, without mention of fluctuations (2) Gait difficulty: Code(s): R26.9 - Unspecified abnormalities of gait and mobility Category: Medical Plan Increase carbidopa-levodopa 25-100mg from 1 tab bid to 1 tab 3 times a day at 07:00, 11:00, 19:00. * As able, try to take carbidopa levodopa 30 minutes before or 2 hours after eating a full meal or protein. * Reviewed benefit potential side effects of increasing carbidopa levodopa Advised to stand and walk slower to reduce risk for unsteadiness. Continue regular physical, social, and cognitively stimulating activities. Discuss starting speech therapy and/or PT, patient states he will call us when he is ready to do these. Monitor sleep, future considerations sleep study. ? f/u in 6 months or sooner prn. Medications: Changed From carbidopa-levodopa 25-100 mg take w/ a cracker 30 minutes before breakfast and dinner, 1 tab PO BID 90 days 180 tabs 1RF To carbidopa-levodopa 25-100 mg 30 minutes before breakfast, lunch, and dinner 1 tab PO TID 270 tabs 1RF 90 days Coding Level of Care Code Est Pt Level 4 (58684) Diagnoses Parkinson's disease without dyskinesia or fluctuating manifestations G20.A1 Fluctuating manifestations: without fluctuating manifestations Gait difficulty R26.9
== END 2025-05-22 14:04 | disposition home or self-care (01) ==
LOC: HO.HSMS 12:37
PROVIDERS: PCP Internal Medicine Medical Oncology; Visit Provider Nurse Practitioner Family
DX: G20.A1 Parkinson's disease without dyskinesia, without mention of fluctuations (principal); R26.9 Unspecified abnormalities of gait and mobility
CPT/HCPCS: 99214

== ENCOUNTER → 2025-05-22 12:37 | Outpatient (BNVA) | payer MEDICARE, SELFPAY | PROVIDERS: PCP Internal Medicine Medical Oncology; Visit Provider Nurse Practitioner Family | DX: G20.A1 Parkinson's disease without dyskinesia, without mention of fluctuations (principal); Z79.899 Other long term (current) drug therapy | CPT/HCPCS: 99212 ==

== ENCOUNTER 2025-09-30 12:53 | Outpatient (REF) | payer SELFPAY ==
--- OUTSIDE RECORDS SUMMARY | 2024-06-14 05:00 | XMS_ITS ---
Author Organization Jonny Serra III, MD Address [address] [place] [address] [place] [address] Care Team Providers Care Clinical Esthetician Name Role Phone Dr. Jonny Serra III Primary Care Provider [phone] Allergies Allergen (clinical drug ingredient) Drug/Non Drug Allergy documented on EMR Reaction Allergy Type Onset Date Status No Known Drug Allergy Unknown Drug Allergy Active Results Component Value Reference Range Notes URINE DIP STICK Reviewed date:06/14/2024 02:38:17 PM Interpretation: Performing Lab: Notes/Report: SG 1.020 1.005 - 1.025 pH 5.0 5.0 - 9.0 NAKITA Negative Negative - NIT Negative Negative - PRO 15 Negative - Trace GLU Negative Negative - KET 5 Negative - UBG 0.2 0.1 - 1.8 GURVINDER Negative 0.2 - 1.3 BLD Negative Negative - Reason For Referral Reason ReEvaluate and Treat Progressive hearing loss Diagnosis 1 Hearing loss (H91.90 ) Referral Organization Jonny Serra III, MD Referring Provider First Name Jonny Referring Provider Last Name Ponce Referring Provider Speciality Internal M edicine Referred Provider [facility], Speech and Hearing Referred Provider Specialty Unknown General Notes Carla Allred 2023 11:22:46 AM EDT > Referral faxed with progress noteBrigida Amber 08/08/2024 03:21:07 PM > Patient is still active in the system and needs to contact them directly to schedule an appointment. Patient was contacted and left a message to contact the [facility] to schedule the appointment. 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) Referral Organization Jonny Serra III, MD Referring Provider First Name Jonny Referring Provider Last Name Ponce Referring Provider Speciality Internal M edicine Referred Provider [facility], Speech and Hearing Referred Provider Specialty Unknown General Notes Carla Allred 2023 11:22:32 AM EDT > Referral faxed with progress note Referral Priority Routine Referral Appointment Date 11/13/2024 REASON FOR VISIT Annual Exam Medications Medication SIG (Take, Route, Frequency, Duration) Notes Start Date End Date Status Verapamil HCl ER 120 mg TAKE 1 TABLET DAILY Active Aspirin Adult Low Dose 81 MG 1 tablet Or ally Once a day Active KLS Omeprazole 20 MG 1 tablet Orally as needed for reflux Active Vitamin B12 Active metroNIDAZOLE 0.75 % APPLY EXTERNALLY TW O TIMES A DAY Active Carbidopa-Levodopa 25-100 MG Oral Active Social History Tobacco Use: Social History Observation Description Date Details (start date - stop date) Former Smoker NA - NA Sex Assigned At : Social History Observation Description Sex Assigned At Male Tobacco Use/Smoking Question Answer Notes Patient is a former smoker How long has it been since you last smoked? > 10 years Additional Findings: Tobacco Non-User Ex-cigaret te smoker Alcohol Screen Question Answer Notes Did you have a drink containing alcohol in the p ast year? No Points 0 Interpretation Negative Vital Signs Temperature 99.0 degrees Fahrenheit 06/14/20 24 Blood pressure systolic 140 mm Hg 06/14/20 24 Blood pressure diastolic 79 mm Hg 024 Heart Rate 73 /min 06/14/2024 Height 71 in 06/14/2024 Weight 186 lbs 06/14/2024 BMI 25.94 kg/m2 06/14/2024 Encounters Encounter Location Date Provider Diagnosis Jonny Serra III, MD [address] [place] [address] [place] [address] 06/14/2024 Jonny Serra BPH (benign prostati c hyperplasia) N40.0 ; Overweight (BMI 25.0-29.9) E66.3 ; Coronary artery disease I25.10 ; GERD (gastroesophageal reflux disease) K21.9 ; Barretts esophagus K22.70 ; Atrial fibrillation I48.91 ; Hearing loss H91.90 ; Former smoker Z87.891 ; Vitamin B12 deficiency E53.8 ; 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 We discussed lifestyle modification as a way of reducing nocturia. 06/14/2024 Overweight (BMI 25.0-29.9) (ICD-10 - E66.3) He is very slightly overweight. I recommended he stabilize his weight at this level and avoid weight gain. I recommended regular exercise and the avoidance of to much sodium or concentrated sweets. 06/14/2024 Coronary artery disease (ICD-10 - I25.10) Since his last visit he has had no angina or increase in dyspnea. He is able to walk 2 miles a day without chest pain. 06/14/2024 GERD (gastroesophageal reflux disease) (ICD-10 - K21.9) His reflux symptoms are well controlled with [id number]-[id number]-[id number] medication. 06/14/2024 Barretts esophagus (ICD-10 - K22.70) He has had no dysphagia lately. He is followed by gastroenterology. His heartburn is well controlled. His colonoscopy is due next year. 06/14/2024 Atrial fibrillation (ICD-10 - I48.91) He has paroxysmal atrial fibrillation and was in a regular rhythm today. 06/14/2024 Hearing loss (ICD-10 - H91.90) His hearing loss is stable. He has benefited from the hearing aids. 06/14/2024 Former smoker (ICD-10 - Z87.891) He seemed highly motivated not to smoke. He has a plan to prevent relapse. 06/14/2024 Vitamin B12 deficiency (ICD-10 - E53.8) He has been compliant with his vitamin B12 supplementation. No change in his regimen was needed today. 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 He is using a cane when he walks. He has had 2 falls without injuries. 06/14/2024 Parkinsons disease (ICD-10 - G20) He is being seen by the neurology department at [facility] who find he has a movement disorder and are calling and Parkinson's disease. Plan Of Treatment Medication Medication Name Sig Start Date Stop Date Notes Verapamil HCl ER 120 mg TAKE 1 TABLET DAILY Aspirin Adult Low Dose 81 MG 1 tablet Orally Once a day KLS Omeprazole 20 MG 1 tablet Orally as needed for reflux Vitamin B12 metroNIDAZOLE 0.75 % APPLY EXTERNALLY TW O TIMES A DAY Carbidopa-Levodopa 25-100 MG Oral Pending Test Test Name Order Date PROFILE, FASTING (COMPREHENSIVE METABOLI C) 06/14/2024 PSA, TOTAL 06/14/2024 CBC WITH AUTO DIFF 06/14/2024 Lipid Panel 06/14/2024 Referrals Referral Date Details 06/14/2024 06/14/2024, ReEvalua te and Treat Progressive hearing loss, Speech and Hearing [facility] 06/14/2024 06/14/2024, Evaluate and Treat Speech Therapy, [facility] Next Appt Details Follow Up: 2 Months, Reason: ov Provider Name:Jonny Serra , 01/20/2026 10:00:00 AM, [address] [place] [address] [address], [place], [id number], Provider Name:Jonny Serra , 06/22/2026 10:00:00 AM, [address] [place] [address] [address], [place], [id number], Progress Notes * HESS Alexis ADOB:1944 (79 yo M)Acc No.[id number]:06/14/2024 Progress Notes Patient: Alexis Frazier Provider: Hardy Serra MD :1945 A ge:79 Y S ex:Male Date:06/14/2024 Address:[address] [place] [address] [id number] Subjective: * Chief Complaints: * A nnual Exam * HPI: D epression Screening: He returns to the office at the age of 79 for his annual physical examination. He sandra been compliant with his medications and his visits to neurology. He is up-to-date with colonoscopy. He says his hearing is becoming worse. He was referred back to audiology for reprogramming of his hearing aids. Communication was adequate today. His Parkinson's disease is slowly progressing. He is still able to walk 2 miles a day using a cane. He denies any chest pain or shortness of breath or bleeding. He has had no falls since his last visit. He is concerned about his speech and his difficulty enunciating. 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 He admits nocturia once a night and no change in his regimen was needed. PHQ-9 L ittle interest or pleasure in doing things?Not at all F eeling down, depressed, or hopeless N ot at all T rouble falling or staying asleep, or sleeping too much N ot at all F eeling tired or having little energy N ot at all P oor appetite or overeating N ot at all F eeling bad about yourself or that you are a failure, or have let yourself or your family down N ot at all T rouble concentrating on things, such as reading the newspaper or watching television N ot at all M oving or speaking so slowly that other people could have noticed; or the opposite, being so fidgety or restless that you have been moving around a lot more than usual N ot at all T houghts that you would be better off or of hurting yourself in some way N ot at all T otal Score 0 C OVID-19 Screening: Questions H ave you experienced fever, chills, cough, sore throat, shortness of breath, difficulty breathing, muscle aches, loss of taste or smell? N o H ave you been exposed to the virus within the last 10 days? N o H ave you travelled internationally in the last 10 days? N o H ave you been exposed to COVID-19 in the past? N o S SAURAV Questions: SDOH Questions I n the past year have you been worried about losing your housing? N o I n the past year have you or any family members you live with been unable to get any of the following when it was really needed? Check all that apply: Luis rodrigues to answer * ROS: G eneral/Constitutional: pain o nly normal aches and pains. C hills d enies.?Fatigue a dmits. F ever d enies. E NT: Decreased hearing i n both ears. R espiratory: Cough d enies. C ardiovascular: Chest pain with exertion d enies. D yspnea on exertion?denies. S hortness of breath d enies. G astrointestinal: Constipation o ccasional. D ecreased appetite d enies. D iarrhea d enies. H eartburn d enies. N ausea d enies. R ectal bleeding d enies. V omiting d enies. H ematology: bruising d enies. p etechiae d enies. S wollen glands n one have been noted. G enitourinary: Frequent urination o nce a night. M usculoskeletal: Muscle aches d enies. P ainful joints d enies. S ciatica d enies. W eakness t hat is generalized. S kin: Itching d enies. R batool d enies. S kin lesion(s)?denies. N eurologic: Difficulty speaking d enies. D izziness d enies.?Headache d enies. L ow back pain d enies. P sychiatric: Depressed mood w hich is mild. * Medical History: * Surgical History: hardy stone right quadriceps tendon, Dr. Jacobs 10/2004right biceps tendon repair 2002left knee surgery 1993Colonoscopy and Esophagogastroduodenoscopy 11/25/2012 * Hospitalization/Major Diagno stic Procedure: D enies Past Hospitalization * Family History: F ather: 79 yrs, ventricular fibrillation. M other: 75 yrs, ovarian cancer, diagnosed with Cancer. 4 brother(s) - healthy. 1 son(s) , 1 daughter(s) - healthy. . His daughter is overweight and has carpal tunnel syndrome. * Social History: T obacco Use: T obacco Use/Smoking P atient is a f ormer smoker H ow long has it been since you last smoked??> 10 years A dditional Findings: Tobacco Non-User E x-cigarette smoker D rugs/Alcohol: D rugs H ave you used drugs other than those for medical reasons in the past 12 months? N o Alcohol Screen D id you have a drink containing alcohol in the past year? 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 He has been to [place] for 20 years and has 2 children, a son and a daughter. He has 4 grandchildren and lives in [place]. He was born in [place], [place]. * Medications: T akingVerapamil HCl ER 120 mg Tablet Extended Release TAKE 1 TABLET DAILY Aspirin Adult Low Dose 81 MG Tablet Delayed Release 1 tablet Orally Once a dayKLS Omeprazole 20 MG Tablet Delayed Release 1 tablet Orally as needed for refluxVitamin B12 metroNIDAZOLE 0.75 % Gel APPLY EXTERNALLY TWO TIMES A DAY Carbidopa-Levodopa 25- 100 MG Tablet Oral Medication List reviewed and reconciled with the patientTaking Verapamil HCl ER 120 mg Tablet Extended Release TAKE 1 TABLET DAILY Taking Aspirin Adult Low Dose 81 MG Tablet Delayed Release 1 tablet Orally Once a dayTaking KLS Omeprazole 20 MG Tablet Delayed Release 1 tablet Orally as needed for refluxTaking Vitamin B12 Taking metroNIDAZOLE 0.75 % Gel APPLY EXTERNALLY TWO TIMES A DAY Taking Carbidopa-Levodopa 25-100 MG Tablet Oral Medication List reviewed and reconciled with the patient * Allergies: N o Known Drug Allergyno[Allergies Verified] Objective: * Vitals: H t: 71, Wt:186, BMI:25.94, BP:140/79, HR:73, Temp:99.0, Wt-k.37. * Examination: G eneral Examination: GENERAL APPEARANCE: p leasant, well nourished, well developed, in no acute distress, calm and relaxed , overweight , elderly man. HEAD: a traumatic, normocephalic. EYES: e ginger, perrla, anicteric, conjugate. EARS: n ormal. NOSE: s eptum intact. ORAL CAVITY: n ormal, unremarkable. NECK/THYROID: n o jugular venous distention, no carotid bruit, thyroid normal. LYMPH NODES: n o enlarged lymph nodes,spleen normal. SKIN: n o suspicious lesions, anicteric. HEART: n o clicks, gallops, murmurs, or rubs, regular rhythm, S1, S2 normal, no s3, or vascular bruits. LUNGS: c lear to auscultation . BREASTS: no masses palpable bilaterally. ABDOMEN: b owel sounds normal, no ascites, no organomegaly, no mass , overweight. RECTAL EXAM: n ot examined. MUSCULOSKELETAL: e xtremities unremarkable, no clubbing, cyanosis or edema. PERIPHERAL PULSES: n ormal. NEUROLOGIC: a lert and oriented, cranial nerves 2-12 grossly intact, deep tendon reflexes 2+ symmetrical, motor strength normal upper and lower extremities, sensory exam intact, Speech apraxia, gait apraxia, resting tremor, parkinsonian face. PSYCH: a lert, oriented. Assessment: * Assessment: 1. O verweight (BMI 25.0-29.9) - E66.3, He is very slightly overweight. I recommended he stabilize his weight at this level and avoid weight gain. I recommended regular exercise and the avoidance of to much sodium or concentrated sweets. 2 . B PH (benign prostatic hyperplasia) - N40.0, He arises from sleep once or twice a night to urinate. We discussed lifestyle modification as a way of reducing nocturia. 3 . C oronary artery disease - I25.10, Since his last visit he has had no angina or increase in dyspnea. He is able to walk 2 miles a day without chest pain. 4 . G ERD (gastroesophageal reflux disease) - K21.9, His reflux symptoms are well controlled with qsts-iss-uhzskex medication. 5 . B arretts esophagus - K22.70, He has had no dysphagia lately. He is followed by gastroenterology. His heartburn is well controlled. His colonoscopy is due next year.?6. A trial fibrillation - I48.91, He has paroxysmal atrial fibrillation and was in a regular rhythm today. 7 . H earing loss - H91.90, His hearing loss is stable. He has benefited from the hearing aids. 8 . F ormer smoker - Z87.891, He seemed highly motivated not to smoke. He has a plan to prevent relapse. 9 . V itamin B12 deficiency - E53.8, He has been compliant with his vitamin B12 supplementation. No change in his regimen was needed today. 1 0. 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 He is using a cane when he walks. He has had 2 falls without injuries. 1 1. P arkinsons disease - G20, He is being seen by the neurology department at [facility] who find he has a movement disorder and are calling and Parkinson's disease. Plan: * Treatment: 2. B PH (benign prostatic hyperplasia) Continue Aspirin Adult Low Dose Tablet Delayed Release, 81 MG, 1 tablet, Orally, Once a day; C ontinue KLS Omeprazole Tablet Delayed Release, 20 MG, 1 tablet, Orally, as needed for reflux; C ontinue Vitamin B12; C ontinue Carbidopa-Levodopa Tablet, 25-100 MG, Oral. L AB: PROFILE, FASTING (COMPREHENSIVE METABOLIC) L AB: PSA, TOTAL L AB: CBC WITH AUTO DIFF L AB: Lipid Panel 3. H earing loss Referral To:Audiology [facility] Reason:ReEvaluate and Treat Progressive hearing loss 4. P arkinsons disease Referral To:LIBIA [place] Reason:Evaluate and Treat Speech Therapy 5. O thers Continue Verapamil HCl ER Tablet Extended Release, 120 mg, TAKE 1 TABLET DAILY; C ontinue metroNIDAZOLE Gel, 0.75 %, APPLY EXTERNALLY TWO TIMES A DAY. ? Referral To:LIBIA [place] Reason:Evaluate and Treat Speech Therapy * Labs: * L ab: URINE DIP STICK Value Reference Range S G 1.020 1.005 - 1.025 * p H 5.0 5.0 - 9.0 * L EU Negative Negative - * N IT Negative Negative - * P RO 15 Negative - Trace * G DARVIN Negative Negative - * K ET 5 Negative - * U BG 0.2 0.1 - 1.8 * B IL Negative 0.2 - 1.3 * B LD Negative Negative - * Procedure Codes: 8 1002 URINE-NO MICRO * Preventive Medicine: Counseling: C are goal follow-up plan: Counseling for abnormal BMI given Y es Above Normal BMI Follow-up D ietary management education, guidance, and counseling, Dietary needs education S moking/Tobacco Use Patient counseled on the dangers of tobacco use and urged to quit. 0 06/14/2024 * Follow Up: 2 Months (Reason: ov) * Images: * Sign off status: Completed true * Provider: Hardy Serra MD Date: 0 06/14/2024 Generated for Epi schuster/Dinorah/eTransmitting on: 1 11/30/2024 04:31 PM EST History and Physical Notes * HPI (History of Present Illness) Category Sub-Category Detail Notes Depression Screening PHQ-9 Little inte rest or pleasure in doing things: Not at all Feeling down, depressed, or hopeless: No t at all Trouble falling or staying asleep, or sl eeping too much: Not at all Feeling tired or having little energy: N ot at all Poor appetite or overeating: Not at all Feeling bad about yourself o r that you are a failure, or have let yourself or your family down: Not at all Trouble concentrating on thi ngs, such as reading the newspaper or watching television: Not at all Moving or speaking so slowly that other people could have noticed; or the opposite, being so fidgety or restless that you have been moving around a lot more than usual: Not at all Thoughts that you would be b avery off or of hurting yourself in some way: Not at all Total Score: 0 COVID-19 Screening Questions Have you had any new onset fever, chills, cough, congestion, sore throat, shortness of breath, muscle aches?: No Have you been exposed to the virus withi n the last 10 days?: No Have you travelled internationally in e last 10 days?: No Have you been exposed to COVID-19 in the past?: No SDOH Questions SDOH Questions In the past year have you been worried about losing your housing?: No In the past year have you or any family members you live with been unable to get any of the following when it was really needed? Check all that apply:: Decline to answer Examination Category Sub-Category Detail Notes General Examination GENERAL APPEARANCE: pleasant , well nourished, well developed, in no acute distress, calm and relaxed , overweight , elderly man HEAD: atraumatic, normocep halic EYES: eomi, perrla, anicte josé antonio, conjugate EARS: normal NOSE: septum intact NECK/THYROID: no jugular venous di stention, no carotid bruit, thyroid normal HEART: no clicks, gallops, murmurs, or rubs, regular rhythm, S1, S2 normal, no s3, or vascular bruits LUNGS: clear to auscultatio n ABDOMEN: bowel sounds normal, no ascites, no organomegaly, no mass , overweight NEUROLOGIC: alert and oriented, cranial nerves 2-12 grossly intact, deep tendon reflexes 2+ symmetrical, motor strength normal upper and lower extremities, sensory exam intact, Speech apraxia, gait apraxia, resting tremor, parkinsonian face SKIN: no suspicious lesion s, anicteric PERIPHERAL PULSES: normal BREASTS: no masses palpable b ilaterally MUSCULOSKELETAL: extremities unremark able, no clubbing, cyanosis or edema LYMPH NODES: no enlarged lymph no smith,spleen normal RECTAL EXAM: not examined PSYCH: alert, oriented ORAL CAVITY: normal, unremarkable Consultation Request Notes Referral Date Referring Provider Referred Provider Not es 06/14/2024 [facility] ReEvaluate and Treat Progressive hearing loss 06/14/2024 [facility] Evaluate and Treat Speech Therapy
--- OUTSIDE RECORDS SUMMARY | 2024-08-30 05:30 | XMS_ITS ---
Author Organization Jonny Serra III, MD Address [address] [place] [address] [place] [address] Care Team Providers Care Crown Ceramist Name Role Phone Dr. Jnony Serra III Primary Care Provider [phone] Allergies Allergen (clinical drug ingredient) Drug/Non Drug Allergy documented on EMR Reaction Allergy Type Onset Date Status No Known Drug Allergy Unknown Drug Allergy Active REASON FOR VISIT Parkinson's disease, Coronary artery disease, Jeffrey's esophagitis, Atrial fibrillation, Hearing loss, B12 deficiency, Benign prostatic hypertrophy Medications Medication SIG (Take, Route, Frequency, Duration) Notes Start Date End Date Status metroNIDAZOLE 0.75 % APPLY EXTERNALLY TW O TIMES A DAY Active Carbidopa-Levodopa 25-100 MG Oral Active Vitamin B12 Active Aspirin Adult Low Dose 81 MG 1 tablet Or ally Once a day Active KLS Omeprazole 20 MG 1 tablet Orally as needed for reflux Active Verapamil HCl ER 120 mg TAKE 1 TABLET DAILY Active Social History Tobacco Use: Social History Observation Description Date Details (start date - stop date) Former Smoker NA - NA Sex Assigned At : Social History Observation Description Sex Assigned At Male Tobacco Use/Smoking Question Answer Notes Patient is a former smoker How long has it been since you last smoked? > 10 years Additional Findings: Tobacco Non-User Ex-cigaret te smoker Vital Signs Temperature 99.3 degrees Fahrenheit 08/30/20 24 Blood pressure systolic 132 mm Hg 08/30/20 24 Blood pressure diastolic 77 mm Hg 024 Heart Rate 74 /min 08/30/2024 Height 71 in 08/30/2024 Weight 184 lbs 08/30/2024 BMI 25.66 kg/m2 08/30/2024 Encounters Encounter Location Date Provider Diagnosis Jonny Serra III, MD [address] [place] [address] [place] [address] 08/30/2024 Jonny Serra BPH (benign prostati c hyperplasia) N40.0 ; Parkinsons disease G20 ; Vitamin B12 deficiency E53.8 ; Overweight (BMI 25.0-29.9) E66.3 ; Coronary artery disease I25.10 ; GERD (gastroesophageal reflux disease) K21.9 ; Barretts esophagus K22.70 ; Atrial fibrillation I48.91 ; Hearing loss H91.90 ; Former smoker Z87.891 and 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 We discussed lifestyle modification as a way of reducing nocturia. 08/30/2024 Parkinsons disease (ICD-10 - G20) He is being seen by the neurology department at [facility] who find he has a movement disorder and are calling and Parkinson's disease.He is being treated with carbidopa and levodopa several times a day. 08/30/2024 Vitamin B12 deficiency (ICD-10 - E53.8) He was continued on his oral B12 supplementation. Vitamin B12 level will be checked periodically. It has been restored to normal in the past. 08/30/2024 Overweight (BMI 25.0-29.9) (ICD-10 - E66.3) He is slightly overweight. We discussed diet and nutrition. I recommended he stabilize his weight at this level. 08/30/2024 Coronary artery disease (ICD-10 - I25.10) Since his last visit he has had no angina or increase in dyspnea. He is able to walk 2 miles a day without chest pain. 08/30/2024 GERD (gastroesophageal reflux disease) (ICD-10 - K21.9) His reflux symptoms are well controlled with [id number] medication. 08/30/2024 Barretts esophagus (ICD-10 - K22.70) He has had no dysphagia lately. He is followed by gastroenterology. His heartburn is well controlled. His colonoscopy is due next year. 08/30/2024 Atrial fibrillation (ICD-10 - I48.91) He was in a slow controlled atrial fibrillation day with normal vital signs. 08/30/2024 Hearing loss (ICD-10 - H91.90) His hearing loss is stable. He has benefited from the hearing aids. 08/30/2024 Former smoker (ICD-10 - Z87.891) He seemed highly motivated not to smoke. He has a plan to prevent relapse. 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 He is using a cane when he walks. He has had 2 falls without injuries. Plan Of Treatment Medication Medication Name Sig Start Date Stop Date Notes metroNIDAZOLE 0.75 % APPLY EXTERNALLY TW O TIMES A DAY Carbidopa-Levodopa 25-100 MG Oral Vitamin B12 Aspirin Adult Low Dose 81 MG 1 tablet Orally Once a day KLS Omeprazole 20 MG 1 tablet Orally as needed for reflux Verapamil HCl ER 120 mg TAKE 1 TABLET DAILY Pending Test Test Name Order Date PROFILE, FASTING (COMPREHENSIVE METABOLI C) 08/30/2024 CBC WITH AUTO DIFF 08/30/2024 Lipid Panel 08/30/2024 Vitamin B12 08/30/2024 Next Appt Details Follow Up: 3 Months, ua y 3rd at 10:00 AM, Reason: OV, Regular check-up Provider Name:Jonny Serra , 01/20/2026 10:00:00 AM, [address] [place] [address] [address], [place], [address], Provider Name:Jonny Serra , 06/22/2026 10:00:00 AM, [address] [place] [address] [address], [place], [address], Progress Notes * Alexis HESS ADOB:1944 (79 yo M)Acc No.[id number]:08/30/2024 Progress Notes Patient: Alexis ALARCON Provider: Hardy Serra MD :1945 A ge:79 Y S ex:Male Date:08/30/2024 Address:[address], [id number] Subjective: * Chief Complaints: * P arkinson's diseaseCoronary artery diseaseBarrett's esophagitisAtrial fibrillationHearing lossB12 deficiencyBenign prostatic hypertrophy * HPI: C OVID-19 Screening: Questions H ave you [...] to COVID-19 in the past? N o * : The patient, a 79-year-old male, presented with symptoms of unsteadiness and difficulty in walking. He reported that these symptoms have been worsening over the past six months. The patient also mentioned experiencing a sense of pressure in his head. He noted that his symptoms are intermittent, with some days being worse than others. For instance, he mentioned that he could barely complete a mile walk on the previous day and felt unsteady while walking from his car on the day of the visit. The patient also reported incidents where he had to put his hand on the wall to maintain balance. He does not experience any sensation of moving or spinning. The patient also mentioned a feeling of increased saliva production. He has been keeping track of his exercise and has noticed a decrease in his ability to walk long distances. The patient is currently on [place], taken twice daily. Blood Sugar Level is 101. Pain Scale is 3-4. * ROS: G eneral/Constitutional: pain o nly [...] repair 2002left knee surgery 1993Colonoscopy and Esophagogastroduodenoscopy 11/25/2012No history * Hospitalization/Major Diagno stic Procedure: N o history * Family History: F ather: 79 yrs, [...] dditional Findings: Tobacco Non-User E x-cigarette smoker Verona decker works in the [employer] Department at [employer]. He has been to [place] for 20 years and has 2 children, a son and a daughter. He has 4 grandchildren and lives in [place]. He was born in [place], [place]. * Medications: T akingVerapamil HCl ER 120 mg Tablet Extended Release TAKE 1 TABLET DAILY Aspirin Adult Low Dose 81 MG Tablet Delayed Release 1 tablet Orally Once a day KLS Omeprazole 20 MG Tablet Delayed Release 1 tablet Orally as needed for reflux Vitamin B12 metroNIDAZOLE 0.75 % Gel APPLY EXTERNALLY TWO TIMES A DAY Carbidopa-Levodopa 25- 100 MG Tablet Oral Medication List reviewed and reconciled with the patientTaking Verapamil HCl ER 120 mg Tablet Extended Release TAKE 1 TABLET DAILY Taking Aspirin Adult Low Dose 81 MG Tablet Delayed Release 1 tablet Orally Once a day Taking KLS Omeprazole 20 MG Tablet Delayed Release 1 tablet Orally as needed for reflux Taking Vitamin B12 Taking metroNIDAZOLE 0.75 % Gel APPLY EXTERNALLY TWO TIMES A DAY Taking Carbidopa-Levodopa 25-100 MG Tablet Oral Medication List reviewed and reconciled with the patient * Allergies: N o Known Drug Allergyno[Allergies Verified] Objective: * Vitals: H t: 71, Wt:184, BMI:25.66, BP:132/77, HR:74, Temp:99.3, Wt-k.46. * P ast Orders: Lab:URINE DIP STICK * Collection Date 06/14/2024 11/12/2018 05/06/2015 Collection Time 09:38 AM Order Date 06/14/2024 11/12/2018 05/06/2015 SG 1.020 (Ref Range: 1.005 - 1.025) 1.020 1.025 pH 5.0 (Ref Range: 5.0 - 9.0) 5 5 NKAITA Negative (Ref Range: Negative -) neg Neg NIT Negative (Ref Range: Negative -) neg Neg PRO 15 (Ref Range: Negative - Trace) trace Trace GLU Negative (Ref Range: Negative -) normal Neg KET 5 (Ref Range: Negative -) neg Neg UBG 0.2 (Ref Range: 0.1 - 1.8) normal Normal GURVINDER Negative (Ref Range: 0.2 - 1.3) neg Neg BLD Negative (Ref Range: Negative -) neg Neg Menstrating NR n/a N/A * Examination: G eneral Examination: GENERAL APPEARANCE: p leasant, well nourished, well developed, in no acute distress, calm and relaxed, overweight, man. HEAD: a traumatic, normocephalic. EYES: e ginger, perrla, anicteric, conjugate. EARS: n ormal. NOSE: s eptum intact. ORAL CAVITY: n ormal, unremarkable. NECK/THYROID: n o jugular venous distention, no carotid bruit, thyroid normal. LYMPH NODES: n o enlarged lymph nodes,spleen normal. SKIN: n o suspicious lesions, anicteric. HEART: n o clicks, gallops, murmurs, or rubs, irregular rhythm, S1, S2 normal, no s3, or vascular bruits. LUNGS: c lear to auscultation . BREASTS: no masses palpable bilaterally. ABDOMEN: b owel sounds normal, no ascites, no organomegaly, no mass, overweight. RECTAL EXAM: n ot examined. MUSCULOSKELETAL: e xtremities unremarkable, no clubbing, cyanosis or edema. PERIPHERAL PULSES: n ormal. NEUROLOGIC: a lert and oriented, cranial nerves 2-12 grossly intact, deep tendon reflexes 2+ symmetrical, motor strength decreased upper and lower extremities, sensory exam intact, Worsening cerebellar ataxia, needs cane or walker, No tremor, parkinsonian facies, Mild slurring of speech. PSYCH: a lert, oriented. - : { 'Eyes':'Normal', 'Mouth': 'Cavity noted', 'Heart': 'Normal heart rate and rhythm, no premature heartbeats or heart murmurs', 'Lungs': 'Normal', 'Skin': 'Irritated hair follicle noted'}. Assessment: * Assessment: 1. P arkinsons disease - G20 (Primary) N otes :He is being seen by the neurology department at [facility] who find he has a movement disorder and are calling and Parkinson's disease.He is being treated with carbidopa and levodopa several times a day. 2 . B PH (benign prostatic hyperplasia) - N40.0 N otes :He arises from sleep once or twice a night to urinate. We discussed lifestyle modification as a way of reducing nocturia. 3 . V itamin B12 deficiency - E53.8 N otes :He was continued on his oral B12 supplementation. Vitamin B12 level will be checked periodically. It has been restored to normal in the past. 4 . O verweight (BMI 25.0-29.9) - E66.3 N otes :He is slightly overweight. We discussed diet and nutrition. I recommended he stabilize his weight at this level. 5 . C oronary artery disease - I25.10 N otes :Since his last visit he has had no angina or increase in dyspnea. He is able to walk 2 miles a day without chest pain. 6 . G ERD (gastroesophageal reflux disease) - K21.9 N otes :His reflux symptoms are well controlled with [id number]-sszhqyw medication. 7 . B arretts esophagus - K22.70 N otes :He has had no dysphagia lately. He is followed by gastroenterology. His heartburn is well controlled. His colonoscopy is due next year. 8 . A trial fibrillation - I48.91 N otes :He was in a slow controlled atrial fibrillation day with normal vital signs. 9 . H earing loss - H91.90 N otes :His hearing loss is stable. He has benefited from the hearing aids. 1 0. F ormer smoker - Z87.891 N otes :He seemed highly motivated not to smoke. He has a plan to prevent relapse. 1 1. C erebellar ataxia - G11.9 N otes :His ataxia appears to be the same. He is using a cane when he walks. He has had 2 falls without injuries. Plan: * Treatment: 2. V itamin B12 deficiency L AB: PROFILE, FASTING (COMPREHENSIVE METABOLIC) L AB: CBC WITH AUTO DIFF L AB: Lipid Panel L AB: Vitamin B12 3. O verweight (BMI 25.0-29.9) L AB: PROFILE, FASTING (COMPREHENSIVE METABOLIC) L AB: CBC WITH AUTO DIFF L AB: Lipid Panel L AB: Vitamin B12 4. O thers Continue Verapamil HCl ER Tablet Extended Release, 120 mg, TAKE 1 TABLET DAILY; C ontinue metroNIDAZOLE Gel, 0.75 %, APPLY EXTERNALLY TWO TIMES A DAY. * Procedure Codes: * Preventive Medicine: Counseling: C are goal follow-up plan: Counseling for abnormal BMI given Y es Above Normal BMI Follow-up D ietary management education, guidance, and counseling, Dietary needs education S moking/Tobacco Use Patient counseled on the dangers of tobacco use and urged to quit. 1 * Follow Up: 3 Months, December 09 at 10:00 AM (Reason: OV, Regular check-up) * Images: * Sign off status: Completed true * Provider: Hardy Serra MD Date: Generated for Epi schuster/Dinorah/Nelly on: 11/30/2024 04:32 PM EST History and Physical Notes * HPI (History of Present Illness) Category Sub-Category Detail Notes COVID-19 Screening Questions Have you had any new onset fever, chills, cough, congestion, sore throat, shortness of breath, muscle aches?: No Have you been exposed to the virus with n the last 10 days?: No Have you travelled internationally in [facility] last 10 days?: No Have you been exposed to COVID-19 in the past?: No Examination Category Sub-Category Detail Notes General Examination GENERAL APPEARANCE: pleasant , well nourished, well developed, in no acute distress, calm and relaxed, overweight, man HEAD: atraumatic, normocep halic EYES: eomi, perrla, anicte josé antonio, conjugate EARS: normal NOSE: septum intact NECK/THYROID: no jugular venous di stention, no carotid bruit, thyroid normal HEART: no clicks, gallops, murmurs, or rubs, irregular rhythm, S1, S2 normal, no s3, or vascular bruits LUNGS: clear to auscultatio n ABDOMEN: bowel sounds normal, no ascites, no organomegaly, no mass, overweight NEUROLOGIC: alert and oriented, cranial nerves 2-12 grossly intact, deep tendon reflexes 2+ symmetrical, motor strength decreased upper and lower extremities, sensory exam intact, Worsening cerebellar ataxia, needs cane or walker, No tremor, parkinsonian facies, Mild slurring of speech SKIN: no suspicious lesion s, anicteric PERIPHERAL PULSES: normal BREASTS: no masses palpable b ilaterally MUSCULOSKELETAL: extremities unremark able, no clubbing, cyanosis or edema LYMPH NODES: no enlarged lymph no smith,spleen normal RECTAL EXAM: not examined PSYCH: alert, oriented ORAL CAVITY: normal, unremarkable
--- OUTSIDE RECORDS SUMMARY | 2024-12-09 05:00 | XMS_ITS ---
Author Organization Jonny Serra III, MD Address [address] [place] [address] DR [address] [place] [address] Care Team Providers Care Underpresser Hand Name Role Phone Dr. Jonny Serra III Primary Care Provider Allergies Allergen (clinical drug ingredient) Drug/Non Drug Allergy documented on EMR Reaction Allergy Type Onset Date Status No Known Drug Allergy Unknown Drug Allergy Active REASON FOR VISIT Parkinson's disease, Coronary artery disease, Jeffrey's esophagus, Atrial fibrillation, Hearing loss, Benign prostatic hypertrophy, Cerebellar ataxia Medications Medication SIG (Take, Route, Frequency, Duration) [...] Non-User Ex-cigaret te smoker Vital Signs Temperature 97.0 degrees Fahrenheit 12/09/19 25 Blood pressure systolic 139 mm Hg 12/09/19 25 Blood pressure diastolic 88 mm Hg 025 Heart Rate 77 /min 12/09/2024 Height 71 in 12/09/2024 Weight 184, 184.0 lbs 12/09/2024 BMI 25.66 kg/m2 12/09/2024 Encounters Encounter Location Date Provider Diagnosis Jonny Serra III, MD [address] [place] [address] [place] [address] 12/09/2024 Jonny Serra Vitamin B12 deficien cy E53.8 ; Parkinsons disease G20 ; Former smoker Z87.891 ; Atrial fibrillation I48.91 ; Barretts esophagus K22.70 ; Overweight E66.3 ; Hearing loss H91.90 and Coronary artery disease I25.10 Assessments Encounter Date Diagnosis (ICD Code) Assessment Notes Treatment Notes Treatment Clinical Notes 12/09/2024 Vitamin B12 deficiency (ICD-10 - E53.8) His vitamin B12 level was normal and his supplementation was continued. 12/09/2024 Parkinsons disease (ICD-10 - G20) He is being seen by the neurology department at [facility] who find he has a movement disorder and are calling and Parkinson's disease.He is being treated with carbidopa and levodopa several times a day. 12/09/2024 Former smoker (ICD-10 - Z87.891) He seemed highly motivated not to smoke. He has a plan to prevent relapse. 12/09/2024 Atrial fibrillation (ICD-10 - I48.91) He was in a regular rhythm today with normal vital signs. 12/09/2024 Barretts esophagus (ICD-10 - K22.70) He has had no dysphagia lately. He is followed by gastroenterology. His heartburn is well controlled. His colonoscopy is due next year. 12/09/2024 Overweight (ICD-10 - E66.3) We discussed his diet and nutrition today. He will continue to exercise and restrict calories.He is very slightly overweight. 12/09/2024 Hearing loss (ICD-10 - H91.90) His hearing loss is stable. He has benefited from the hearing aids. 12/09/2024 Coronary artery disease (ICD-10 - I25.10) Since his last visit he has had no angina or increase in dyspnea. He is able to walk 2 miles a day without chest pain. Plan Of Treatment Medication Medication Name Sig [...] Order Date PROFILE, FASTING (COMPREHENSIVE METABOLI C) 12/09/2024 PSA, TOTAL 12/09/2024 CBC WITH AUTO DIFF 12/09/2024 Lipid Panel 12/09/2024 Vitamin B12 12/09/2024 Next Appt Details Follow Up: As Scheduled, Fransisca son: Annual Exam Provider Name:Jonny Serra , 01/20/2026 10:00:00 AM, [address] [place] [address] [address], [place], [id number], Provider Name:Jonny Serra , 06/22/2026 10:00:00 AM, [address] [place] [address] [address], [place], [address], Progress Notes * Alexis HESS ADOB:1944 (79 yo M)Acc No.[id number]:12/09/2024 Progress Notes Patient: Alexis ALARCON Provider: Hardy Serra MD :1945 A ge:79 Y S ex:Male Date:12/09/2024 Address:[address] [place], [place] [id number] Subjective: * Chief Complaints: * P arkinson's diseaseCoronary artery diseaseBarrett's esophagusAtrial fibrillationHearing lossBenign prostatic hypertrophyCerebellar ataxia * HPI: C OVID-19 Screening: Questions H ave you had any new onset fever, chills, cough, congestion, sore throat, shortness of breath, muscle aches? N o * : The patient, a 79-year-old male, has been maintaining his walking routine, although he finds it challenging to walk more than a mile and a half in about 25 minutes. He has been experiencing instances of word loss, but he usually remembers the word later. He has also been sleeping more, which has affected his treadmill routine. He reports feeling like he's running out of gas and losing coordination in his legs after walking a mile and a half. If he pushes himself too far, he starts feeling like he's falling forward. He has not fallen yet, but he believes he would collapse if he kept pushing himself. Blood Sugar Level is 90. * ROS: G eneral/Constitutional: pain o nly normal aches and pains. C hills d enies.?Fatigue a dmits. F ever d enies. E NT: Decreased hearing i n both ears. R espiratory: Cough d enies. C ardiovascular: Chest pain with exertion d enies. D yspnea on exertion?denies. S hortness of breath w ith exertion. G astrointestinal: Constipation o ccasional. D ecreased [...] enies. S ciatica d enies. W eakness d enies. S kin: Itching d enies. R batool d enies. S kin lesion(s)?denies. N eurologic: Difficulty speaking d enies. D izziness d enies.?Headache d enies. L ow back pain d enies. P sychiatric: Depressed mood w hich is mild. * Medical History: * Surgical History: r chase right quadriceps tendon, Dr. Jacobs 10/2004right biceps tendon repair 2001left knee surgery 1992Colonoscopy and Esophagogastroduodenoscopy 11/25/2012No history * Hospitalization/Major Diagno stic Procedure: N o history * Family History: F ather: 79 yrs, ventricular fibrillation. M other: 75 yrs, ovarian cancer, diagnosed with Cancer. 4 brother(s) - healthy. 1 son(s) , 1 daughter(s) - healthy. . His daughter is overweight and has carpal tunnel syndrome. * Social History: T obacco Use: T obacco Use/Smoking P atfran is a f ormer smoker H ow long has it been since you last smoked??> 10 years A dditional Findings: Tobacco Non-User E x-cigarette smoker Verona decker works in the [employer] Department at [employer]. He has been to [place] George for 20 years and has 2 children, a son and a daughter. He has 4 grandchildren and lives in [place]. He was born in [place], [place]. * Medications: T akingVerapamil HCl [...] Verified] Objective: * Vitals: H t: 71, Wt: 184,184.0, BMI:25.66, BP:139/88, HR:77, Temp:97.0, Wt-k.46. 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 PSYCH: a lert, oriented, mood depressed. ? Assessment: * Assessment: 1. P arkinsons disease - G20 (Primary) N otes :He is being seen by the neurology department at [facility] who find he has a movement disorder and are calling and Parkinson's disease.He is being treated with carbidopa and levodopa several times a day. 2 . V itamin B12 deficiency - E53.8 N otes :His vitamin B12 level was normal and his supplementation was continued. 3 . F ormer smoker - Z87.891 N otes :He seemed highly motivated not to smoke. He has a plan to prevent relapse. 4 . A trial fibrillation - I48.91 N otes :He was in a regular rhythm today with normal vital signs. 5 . B arretts esophagus - K22.70 N otes :He has had no dysphagia lately. He is followed by gastroenterology. His heartburn is well controlled. His colonoscopy is due next year. 6 . O verweight - E66.3 N otes :We discussed his diet and nutrition today. He will continue to exercise and restrict calories.He is very slightly overweight. 7 . H earing loss - H91.90 N otes :His hearing loss is stable. He has benefited from the hearing aids. 8 . C oronary artery disease - I25.10 N otes :Since his last visit he has had no angina or increase in dyspnea. He is able to walk 2 miles a day without chest pain. Plan: * Treatment: 2. O thers Continue Verapamil HCl ER Tablet Extended Release, 120 mg, TAKE 1 TABLET DAILY; C ontinue Aspirin Adult Low Dose Tablet Delayed Release, 81 MG, 1 tablet, Orally, Once a day; C ontinue KLS Omeprazole Tablet Delayed Release, 20 MG, 1 tablet, Orally, as needed for reflux; C ontinue Vitamin B12; C ontinue metroNIDAZOLE Gel, 0.75 %, APPLY EXTERNALLY TWO TIMES A DAY; C ontinue Carbidopa-Levodopa Tablet, 25-100 MG, Oral. * Procedure Codes: * Preventive Medicine: Counseling: C are goal follow-up plan: Counseling for abnormal BMI given Y es Above Normal BMI Follow-up D ietary management education, guidance, and counseling, Dietary needs education S moking/Tobacco Use Patient counseled on the dangers of tobacco use and urged to quit. 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
--- OUTSIDE RECORDS SUMMARY | 2025-03-28 05:31 | XMS_ITS ---
Author Organization Jonny Serra III, MD Address [address] [address] Care Team Providers Care Software Engineering Analyst Name Role Phone Dr. Jonny Serra III Primary Care Provider Medications Medication SIG (Take, Route, Fr equency, Duration) Notes Start Date End Date Status Azithromycin 250 MG like directed Orally 2 Tablets on the first day, one tablet the rest of the days for 5 days 03/28/2025 04/02/2025 Active Social History Sex Assigned At : Social History Observation Description Sex Assigned At Male Encounters Encounter Location Date Provider Diagnosis Jonny Serra III, MD [address] [place] [address] [place] [address] 03/28/2025 Jonny Serra Plan Of Treatment Medication Medication Name Sig Start Date Stop Date Notes Azithromycin 250 MG like directed Orally 2 Tablets on the first day, one tablet the rest of the days for 5 days 03/28/2025 04/02/2025 Next Appt Details Provider Name:Jonny Serra , 01/20/2026 10:00:00 AM, [address] [facility] [place], [address], Provider Name:Jonny Serra , 06/22/2026 10:00:00 AM, [address] [place] [address] [place], [address], Progress Notes * Alexis HESS ADOB:1944 (80 yo M)Acc No.[id number]:03/28/2025 Patient: Alexis ALARCON :1945 A ge:80 Y S ex:Male Address:[address] [place] [address], [phone] * Refills Start Azithromycin Tablet, 250 MG, Orally, 6, like directed, 2 Tablets on the first day, one tablet the rest of the days, 5 days, Refills=0 * true * Date: Generated for Epi schuster/Dinorah/Mary Louitting on: 11/30/2024 04:32 PM EST
--- OUTSIDE RECORDS SUMMARY | 2025-04-15 06:15 | XMS_ITS ---
Author Organization Jonny Serra III, MD Address [address] [address] Care Team Providers Care Customs And Border Protection Officer Name Role Phone Dr. Jonny Serra III Primary Care Provider REASON FOR VISIT wants referral to [facility] Social History Sex Assigned At : Social History Observation Description Sex Assigned At Male Encounters Encounter Location Date Provider Diagnosis Jonny Serra III, MD [address] [place] [address] [place] [address] 04/15/2025 Jonny Serra Plan Of Treatment Next Appt Details Provider Name:Jonny Serra , 01/20/2026 10:00:00 AM, [address] [place] [address] [place], [address], Provider Name:Jonny Serra , 06/22/2026 10:00:00 AM, [address] [place] [address] [place], [address], Progress Notes * Alexis HESS ADOB:1944 (80 yo M)Acc No.[id number]:04/15/2025 Patient: Alexis ALARCON :1945 A ge:80 Y S ex:Male Address:[address] [place], [address] * true * Date: Generated for Epi schuster/Dinorah/Nelly on: 11/30/2024 04:32 PM EST
--- OUTSIDE RECORDS SUMMARY | 2025-06-19 05:00 | XMS_ITS ---
Author Organization Jonny Serra III, MD Address [address] [place] [address] Care Team Providers Care Branch Assistant Name Role Phone Dr. Jonny Serra III Primary Care Provider Allergies Allergen (clinical drug ingredient) Drug/Non Drug Allergy documented on EMR Reaction Allergy Type Onset Date Status No Known Drug Allergy Unknown Drug Allergy Active No Known Food Allergy Unknown Drug Allergy Active REASON FOR VISIT Annual Exam Medications Medication SIG (Take, Route, Frequency, Duration) Notes Start Date End Date Status Aspirin Adult Low Dose 81 MG 1 tablet Or ally Once a day Active Vitamin B12 Active KLS Omeprazole 20 MG 1 tablet Orally as needed for reflux Active Carbidopa-Levodopa 25-100 MG Oral Active metroNIDAZOLE 0.75 % APPLY EXTERNALLY TW O TIMES A DAY Active Verapamil HCl ER 120 mg TAKE 1 TABLET DAILY Active Verapamil HCl 120 MG 1 tablet Orally onc e a day for 90 days 06/19/2025 Active Social History Tobacco Use: Social History Observation Description Date Details (start date - stop date) Former Smoker NA - NA Sex Assigned At : Social History Observation Description Sex Assigned At Male Tobacco Control (Standard) Question Answer Notes Tobacco use: Former smoker How long has it been since you last smoked? Grea ter than 10 years Additional Findings: Tobacco non-user Ex-cigaret te smoker AUDIT-C (Standard) Question Answer Notes Did you have a drink containing alcohol in the p ast year? No Points 0 Interpretation Negative Vital Signs Temperature 98.4 degrees Fahrenheit 06/19/20 25 Blood pressure systolic 132 mm Hg 06/19/20 25 Blood pressure diastolic 82 mm Hg 025 Heart Rate 76 /min 06/19/2025 Height 71 in 06/19/2025 Weight 184 lbs 06/19/2025 BMI 25.66 kg/m2 06/19/2025 Encounters Encounter Location Date Provider Diagnosis Jonny Serra III, MD [address] [place] [address] [place] [address] 06/19/2025 Jonny Serra Atrial fibrillation I48.91 ; Coronary artery disease I25.10 ; Vitamin B12 deficiency E53.8 ; Overweight E66.3 ; BPH (benign prostatic hyperplasia) N40.0 ; GERD (gastroesophageal reflux disease) K21.9 ; Barretts esophagus K22.70 ; Hearing loss H91.90 ; Former smoker Z87.891 ; 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 His cardiac examination was unremarkable. 06/19/2025 Coronary artery disease (ICD-10 - I25.10) Since his last visit he has had no angina or increase in dyspnea. He is able to walk 2 miles a day without chest pain. 06/19/2025 Vitamin B12 deficiency (ICD-10 - E53.8) His B12 level is in the normal range. He will continue on his supplementation. 06/19/2025 Overweight (ICD-10 - E66.3) His body mass index is slightly over 25.0. We reviewed his diet and nutrition. I approved of his continued exercise. We made a plan to lose weight at a rate of one half of a pound per week. 06/19/2025 BPH (benign prostatic hyperplasia) (ICD-10 - N40.0) He rises from sleep urinate once a night at most. We have reviewed lifestyle modifications he could make to reduce this. 06/19/2025 GERD (gastroesophageal reflux disease) (ICD-10 - K21.9) His reflux symptoms are well controlled with [id number] medication. 06/19/2025 Barretts esophagus (ICD-10 - K22.70) He has had no dysphagia lately. He is followed by gastroenterology. His heartburn is well controlled. His colonoscopy is due next year. 06/19/2025 Hearing loss (ICD-10 - H91.90) His hearing loss is stable. He has benefited from the hearing aids. 06/19/2025 Former smoker (ICD-10 - Z87.891) He seemed highly motivated not to smoke. He has a plan to prevent relapse. 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 He is using a cane when he walks. He has had 2 falls without injuries. 06/19/2025 Parkinsons disease (ICD-10 - G20) He is being seen by the neurology department at [facility] who find he has a movement disorder and are calling and Parkinson's disease.He is being treated with carbidopa and levodopa several times a day. Plan Of Treatment Medication Medication Name Sig Start Date Stop Date Notes Aspirin Adult Low Dose 81 MG 1 tablet Orally Once a day Vitamin B12 KLS Omeprazole 20 MG 1 tablet Orally as needed for reflux Carbidopa-Levodopa 25-100 MG Oral metroNIDAZOLE 0.75 % APPLY EXTERNALLY TW O TIMES A DAY Verapamil HCl ER 120 mg TAKE 1 TABLET DAILY Verapamil HCl 120 MG 1 tablet Orally onc e a day for 90 days 06/19/2025 Pending Test Test Name Order Date PROFILE, FASTING (COMPREHENSIVE METABOLI C) 06/19/2025 PSA, TOTAL 06/19/2025 CBC w DIFF 06/19/2025 Lipid Panel 06/19/2025 Vitamin B12 06/19/2025 Next Appt Details Follow Up: 2 Months, Reason: ov Provider Name:Jonny Serra , 01/20/2026 10:00:00 AM, [address] [place] [address] [address], [place], [id number], Provider Name:Jonny Serra , 06/22/2026 10:00:00 AM, [address] [place] [address] [address], [place], [id number], Progress Notes * Alexis HESS ADOB:1944 (80 yo M)Acc No.[id number]:06/19/2025 Progress Notes Patient: Alexis ALARCON Provider: Hardy Serra MD :1945 A ge:80 Y S ex:Male Date:06/19/2025 Address:[id number] Subjective: * Chief Complaints: * A nnual Exam * HPI: D epression Screening: He returns for his annual examination at the age of 80. He was concerned about a red spot on his right forearm which appears to be benign. He has increasing numbness in the dorsum of his left foot. His ataxia is approximately the same as on his last visit. 3 days ago he had an episode of crampy pain in his back muscles but this has resolved. He was in sinus rhythm today. He says he exercises, primarily walking, 40 minutes daily. Blood work done June 10, 2025 showed white count 5.4 hematocrit 48.5 platelets 254 glucose 97 BUN 20 creatinine 1.14 B12 1099 PSA 2.0 total cholesterol 204 triglycerides 50 HDL 76 LDL 119. PHQ-9 L ittle interest or pleasure in doing things?Not at all F eeling down, depressed, or hopeless N ot at all T rouble falling or staying asleep, or sleeping too much N ot at all F eeling tired or having little energy S ever P oor appetite or overeating N ot at all F eeling bad about yourself or that you are a failure, or have let yourself or your family down N ot at all T rouble concentrating on things, such as reading the newspaper or watching television S ever M oving or speaking so slowly that other people could have noticed; or the opposite, being so fidgety or restless that you have been moving around a lot more than usual N ot at all T houghts that you would be better off or of hurting yourself in some way N ot at all T otal Score 2 I nterpretation M inimal Depression C OVID-19 Screening: Questions H ave you had any new onset fever, chills, cough, congestion, sore throat, shortness of breath, muscle aches? N o F all Risk Screening: Fall History H ave you had any falls with injury in the past year? N o H ave you had two or more falls in the past year? N o F all Risk Assessment: N o falls in the past year S SAURAV Questions: SDOH Questions I n the past year have you been worried about losing your housing? N o I n the past year have you or any family members you live with been unable to get any of the following when it was really needed? Check all that apply: N one * ROS: G eneral/Constitutional: pain o nly [...] Social History: T obacco Use: T obacco Control (Standard) T obacco use: F ormer smoker H ow long has it been since you last smoked??Greater than 10 years A dditional Findings: Tobacco non-user E x-cigarette smoker D rugs/Alcohol: D rugs H ave you used drugs other than those for medical reasons in the past 12 months? N o D rug/Alcohol: A IVAN-C (Standard) D id you have a drink containing alcohol in the past year? 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 He has been to [place] for 20 years and has 2 children, a son and a daughter. He has 4 grandchildren and lives in [place]. He was born in [place], [place]. * Medications: T akingVerapamil HCl ER 120 mg Tablet Extended Release TAKE 1 TABLET DAILY Aspirin Adult Low Dose 81 MG Tablet Delayed Release 1 tablet Orally Once a day KLS Omeprazole 20 MG Tablet Delayed Release 1 tablet Orally as needed for reflux Vitamin B12 metroNIDAZOLE 0.75 % Gel APPLY EXTERNALLY TWO TIMES A DAY Carbidopa-Levodopa 25- 100 MG Tablet 1 tablet as needed Oral Two times a Week Medication List reviewed and reconciled with the [...] A DAY Taking Carbidopa-Levodopa 25-100 MG Tablet 1 tablet as needed Oral Two times a Week Medication List reviewed and reconciled with the patient * Allergies: N o Known Drug AllergyNo Known Food Allergyno[Allergies Verified] Objective: * Vitals: H t: 71, Wt:184, BMI:25.66, BP:132/82, HR:76, Temp:98.4, Wt-k.46. * Examination: G eneral Examination: GENERAL APPEARANCE: p leasant, well nourished, well developed, in no acute distress, calm and relaxed: overweight: man. HEAD: a traumatic, normocephalic. EYES: e ginger, perrla, anicteric, conjugate. EARS: N ormal anatomy, bilateral hearing loss, bilateral hearing aids. NOSE: s eptum intact. ORAL CAVITY: n [...] sounds normal, no ascites, no organomegaly, no mass: overweight. RECTAL EXAM: n ot examined. MUSCULOSKELETAL: e xtremities unremarkable, no clubbing, cyanosis or edema. PERIPHERAL PULSES: n ormal. NEUROLOGIC: a lert and oriented, cranial nerves 2-12 grossly intact, deep tendon reflexes 2+ symmetrical, motor strength normal upper and lower extremities, sensory exam intact, Speech difficulty, mild tremor, significant gait apraxia. Parkinsonian face and expression. PSYCH: a lert, oriented. Assessment: * Assessment: 1. C oronary artery disease - I25.10 (Primary) N otes :Since his last visit he has had no angina or increase in dyspnea. He is able to walk 2 miles a day without chest pain. 2 . A trial fibrillation - I48.91 N otes :He was in a regular normal sinus rhythm today. His cardiac examination was unremarkable. 3 . V itamin B12 deficiency - E53.8 N otes :His B12 level is in the normal range. He will continue on his supplementation. 4 . O verweight - E66.3 N otes :His body mass index is slightly over 25.0. We reviewed his diet and nutrition. I approved of his continued exercise. We made a plan to lose weight at a rate of one half of a pound per week. 5 . B PH (benign prostatic hyperplasia) - N40.0 N otes :He rises from sleep urinate once a night at most. W e have reviewed lifestyle modifications he could make to reduce this. 6 . G ERD (gastroesophageal reflux disease) - K21.9 N otes :His reflux symptoms are well controlled with uyao-awc-bvaiejl medication. 7 . B arretts esophagus - K22.70 N otes :He has had no dysphagia lately. He is followed by gastroenterology. His heartburn is well controlled. His colonoscopy is due next year. 8 . H earing loss - H91.90 N otes :His hearing loss is stable. He has benefited from the hearing aids. 9 . F ormer smoker - Z87.891 N otes :He seemed highly motivated not to smoke. He has a plan to prevent relapse. 1 0. C erebellar ataxia - G11.9 N otes :His ataxia appears to be the same. He is using a cane when he walks. He has had 2 falls without injuries. 1 1. P arkinsons disease - G20 N otes :He is being seen by the neurology department at [facility] who find he has a movement disorder and are calling and Parkinson's disease.He is being treated with carbidopa and levodopa several times a day. Plan: * Treatment: 2. A trial fibrillation L AB: PROFILE, FASTING (COMPREHENSIVE METABOLIC) L AB: PSA, TOTAL L AB: CBC w DIFF L AB: Lipid Panel L AB: Vitamin B12 3. V itamin B12 deficiency L AB: PROFILE, FASTING (COMPREHENSIVE METABOLIC) L AB: PSA, TOTAL L AB: CBC w DIFF L AB: Lipid Panel L AB: Vitamin B12 4. O verweight L AB: PROFILE, FASTING (COMPREHENSIVE METABOLIC) L AB: PSA, TOTAL L AB: CBC w DIFF L AB: Lipid Panel L AB: Vitamin B12 5. B PH (benign prostatic hyperplasia) L AB: PROFILE, FASTING (COMPREHENSIVE METABOLIC) L AB: PSA, TOTAL L AB: CBC w DIFF L AB: Lipid Panel L AB: Vitamin B12 6. O thers Continue Aspirin Adult Low Dose Tablet Delayed Release, 81 MG, 1 tablet, Orally, Once a day; C ontinue KLS Omeprazole Tablet Delayed Release, 20 MG, 1 tablet, Orally, as needed for reflux; C ontinue Vitamin B12; C ontinue metroNIDAZOLE Gel, 0.75 %, APPLY EXTERNALLY TWO TIMES A DAY; C ontinue Carbidopa-Levodopa Tablet, 25-100 MG, Oral; S tart Verapamil HCl Tablet, 120 MG, 1 tablet, Orally, once a day, 90 days, 90 Tablet, Refills 3. * Procedure Codes: * Preventive Medicine: Counseling: C are goal follow-up plan: Counseling for abnormal BMI given Y es Above Normal BMI Follow-up D ietary management education, guidance, and counseling S moking/Tobacco Use Patient counseled on the dangers of tobacco use and urged to quit. 0 06/19/2025 * Follow Up: 2 Months (Reason: ov) * Images: * Sign off status: Completed true * Provider: Hardy Serra MD Date: 0 06/19/2025 Generated for Epi schuster/Dinorah/eTransmitting on: 1 11/30/2024 [...] all Feeling tired or having little energy: S everal days Poor appetite or overeating: Not at all Feeling bad about yourself o r that you are a failure, or have let yourself or your family down: Not at all Trouble concentrating on thi ngs, such as reading the newspaper or watching television: Several days Moving or speaking so slowly that other people could have noticed; or the opposite, being so fidgety or restless that you have been moving around a lot more than usual: Not at all Thoughts that you would be b avery off or of hurting yourself in some way: Not at all Total Score: 2 Interpretation: Minimal Depression Fall Risk Screening Fall History Have you had any falls with injury in the past year?: No Have you had two or more falls in the year?: No Fall Risk Assessment:: No falls in the year COVID-19 Screening Questions Have you had any new onset fever, chills, cough, congestion, sore throat, shortness of breath, muscle aches?: No SDOH Questions SDOH Questions In the past year have you been worried about losing your housing?: No In the past year have you or any family members you live with been unable to get any of the following when it was really needed? Check all that apply:: None Examination Category Sub-Category Detail Notes General Examination GENERAL APPEARANCE: pleasant , well nourished, well developed, in no acute distress, calm and relaxed: overweight: man HEAD: atraumatic, normocep halic EYES: eomi, perrla, anicte josé antonio, conjugate EARS: Normal anatomy, bila teral hearing loss, bilateral hearing aids NOSE: septum intact NECK/THYROID: no jugular venous di stention, no carotid bruit, thyroid normal HEART: no clicks, gallops, murmurs, or rubs, regular rhythm, S1, S2 normal, no s3, or vascular bruits LUNGS: clear to auscultatio n ABDOMEN: bowel sounds normal, no ascites, no organomegaly, no mass: overweight NEUROLOGIC: alert and oriented, cranial nerves 2-12 grossly intact, deep tendon reflexes 2+ symmetrical, motor strength normal upper and lower extremities, sensory exam intact, Speech difficulty, mild tremor, significant gait apraxia. Parkinsonian face and expression SKIN: no suspicious lesion s, anicteric PERIPHERAL PULSES: normal BREASTS: no masses palpable b ilaterally MUSCULOSKELETAL: extremities unremark able, no clubbing, cyanosis or edema LYMPH NODES: no enlarged lymph no smith,spleen normal RECTAL EXAM: not examined PSYCH: alert, oriented ORAL CAVITY: normal, unremarkable
--- OUTSIDE RECORDS SUMMARY | 2025-09-19 05:00 | XMS_ITS ---
Author Organization Jonny Serra III, MD Address [address] [place] [address] Care Team Providers Care Sql Database Programmer Name Role Phone Dr. Jonny Serra III Primary Care Provider Allergies Allergen (clinical drug ingredient) Drug/Non Drug Allergy documented on EMR Reaction Allergy Type Onset Date Status No Known Drug Allergy Unknown Drug Allergy Active No Known Food Allergy Unknown Drug Allergy Active REASON FOR VISIT Parkinson's disease, Coronary artery disease, GERD, Jeffrey's esophagus, Hearing loss, Atrial fibrillation, B12 deficiency, Benign prostatic hypertrophy, Cerebellar ataxia Medications Medication SIG (Take, Route, Frequency, Duration) Notes Start Date End Date Status Carbidopa-Levodopa 25-100 MG Oral Active metroNIDAZOLE 0.75 % APPLY EXTERNALLY TW O TIMES A DAY Active Verapamil HCl ER 120 mg TAKE 1 TABLET DAILY Active Verapamil HCl 120 MG 1 tablet Orally onc e a day 06/19/2025 Active Vitamin B12 Active KLS Omeprazole 20 MG 1 tablet Orally as needed for reflux Active Aspirin Adult Low Dose 81 MG 1 tablet Or ally Once a day Active Social History Tobacco Use: Social History [...] Additional Findings: Tobacco non-user Ex-cigaret te smoker Problems Problem Type SNOMED Code ICD Code Onset Dates Problem Status W/U Status Risk Notes Problem 640414625 Overweight (E66.3) Active confirmed His body mass index is slightly over 25.0. We reviewed his diet and nutrition. I approved of his continued exercise. We made a plan to lose weight at a rate of one half of a pound per week. Vital Signs Temperature 98.2 degrees Fahrenheit 09/19/20 25 Blood pressure systolic 135 mm Hg 09/19/20 25 Blood pressure diastolic 72 mm Hg 025 Heart Rate 73 /min 09/19/2025 Height 71 in 09/19/2025 Weight 185 lbs 09/19/2025 BMI 25.8 kg/m2 09/19/2025 Encounters Encounter Location Date Provider Diagnosis Jonny Serra III, MD [address] [place] [address] [place] [address] 09/19/2025 Jonny Serra Former smoker Z87.89 1 ; Coronary artery disease I25.10 ; Overweight E66.3 ; GERD (gastroesophageal reflux disease) K21.9 ; Barretts esophagus K22.70 ; Atrial fibrillation I48.91 ; Hearing loss H91.90 ; Parkinsons disease G20 and Cerebellar ataxia G11.9 Assessments Encounter Date Diagnosis (ICD Code) Assessment Notes Treat ment Notes Treatment Clinical Notes 09/19/2025 Former smoker (ICD-10 - Z87.891) He seemed highly motivated not to smoke. He has a plan to prevent relapse. 09/19/2025 Coronary artery disease (ICD-10 - I25.10) Since his last visit he has had no angina or increase in dyspnea. He is able to walk 2 miles a day without chest pain. 09/19/2025 Overweight (ICD-10 - E66.3) His body mass index is slightly over 25.0. We reviewed his diet and nutrition. I approved of his continued exercise. We made a plan to lose weight at a rate of one half of a pound per week. 09/19/2025 GERD (gastroesophageal reflux disease) (ICD-10 - K21.9) His reflux symptoms are well controlled with [id number]-[id number] medication. 09/19/2025 Barretts esophagus (ICD-10 - K22.70) He has had no dysphagia lately. He is followed by gastroenterology. His heartburn is well controlled. His colonoscopy is due next year. 09/19/2025 Atrial fibrillation (ICD-10 - I48.91) He was in a regular normal sinus rhythm today. His cardiac examination was unremarkable. 09/19/2025 Hearing loss (ICD-10 - H91.90) His hearing loss is stable. He has benefited from the hearing aids. 09/19/2025 Parkinsons disease (ICD-10 - G20) He is being seen by the neurology department at [facility] who find he has a movement disorder and are calling and Parkinson's disease.He is being treated with carbidopa and levodopa several times a day. 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 He is using a cane when he walks. He has had 2 falls without injuries. Plan Of Treatment Medication Medication Name Sig Start Date Stop Date Notes Carbidopa-Levodopa 25-100 MG Oral metroNIDAZOLE 0.75 % APPLY EXTERNALLY TW O TIMES A DAY Verapamil HCl ER 120 mg TAKE 1 TABLET DAILY Verapamil HCl 120 MG 1 tablet Orally once a day 06/19/2025 Vitamin B12 KLS Omeprazole 20 MG 1 tablet Orally as needed for reflux Aspirin Adult Low Dose 81 MG 1 tablet Orally Once a day Pending Test Test Name Order Date PROFILE, FASTING (COMPREHENSIVE METABOLI C) 09/19/2025 B12 09/19/2025 PSA, TOTAL 09/19/2025 CBC w DIFF 09/19/2025 Lipid Panel 09/19/2025 Next Appt Details Follow Up: 4 Months, Reason: Follow up Provider Name:Jonny Serra , 01/20/2026 10:00:00 AM, [address] [place] [address] [address], [place], [id number], Provider Name:Jonny Serra , 06/22/2026 10:00:00 AM, [address] [place] [address] [address], [place], [id number], Progress Notes * Alexis HESS ADOB:1944 (80 yo M)Acc No.[id number]:09/19/2025 Progress Notes Patient: Alexis ALARCON Provider: Hardy Serra MD :1945 A ge:80 Y S ex:Male Date:09/19/2025 Address:[address] [id number] Subjective: * Chief Complaints: * P arkinson's diseaseCoronary artery diseaseGERDBarrett's esophagusHearing lossAtrial [id number] deficiencyBenign prostatic hypertrophyCerebellar ataxia * HPI: C OVID-19 Screening: Verona decker returns for scheduled medical management of numerous issues. He continues to walk a mile every day. He prefers flat ground and uses a cane to cope with the ataxia. He says his balance is bad but has not worsened. He has had no chest pain or shortness of breath or palpitations. He has had no nausea vomiting or diarrhea. His main problem is the Parkinson's disease apraxias. He has had no falls recently. No change in his medications was necessary today. Questions H ave you had any new onset fever, chills, cough, congestion, sore throat, shortness of breath, muscle aches? N o * ROS: G eneral/Constitutional: pain o nly [...] pain d enies. P sychiatric: Depressed mood d enies. * Medical History: * Surgical History: r [...] dditional Findings: Tobacco non-user E x-cigarette smoker H e works in the [employer] Department at [employer]. He has been to [place] for 20 years and has 2 children, a son and a daughter. He has 4 grandchildren and lives in [place]. He was born in [place], [place]. * Medications: T akingAspirin Adult Low Dose 81 MG Tablet Delayed Release 1 tablet Orally Once a day KLS Omeprazole 20 MG Tablet Delayed Release 1 tablet Orally as needed for reflux Vitamin B12 metroNIDAZOLE 0.75 % Gel APPLY EXTERNALLY TWO TIMES A DAY Carbidopa-Levodopa 25-100 MG Tablet 1 tablet as needed Orally three times a day Verapamil HCl 120 MG Tablet 1 tablet Orally once a day Taking Aspirin Adult Low Dose 81 MG Tablet Delayed Release 1 tablet Orally Once a day Taking KLS Omeprazole 20 MG Tablet Delayed Release 1 tablet Orally as needed for reflux Taking Vitamin B12 Taking metroNIDAZOLE 0.75 % Gel APPLY EXTERNALLY TWO TIMES A DAY Taking Carbidopa- Levodopa 25-100 MG Tablet 1 tablet as needed Orally three times a day Taking Verapamil HCl 120 MG Tablet 1 tablet Orally once a day DiscontinuedVerapamil HCl ER 120 mg Tablet Extended Release TAKE 1 TABLET DAILY Medication List reviewed and reconciled with the patientDiscontinued Verapamil HCl ER 120 mg Tablet Extended Release TAKE 1 TABLET DAILY Medication List reviewed and reconciled with the patient * Allergies: N o Known Drug AllergyNo Known Food Allergyno[Allergies Verified] Objective: * Vitals: H t: 71, Wt:185, BMI:25.8, BP:135/72, HR:73, Temp:98.2, Wt-k.91. * Examination: G eneral Examination: GENERAL APPEARANCE: p jo, well nourished, well developed, in no acute distress, calm and relaxed: overweight: man. HEAD: a traumatic, normocephalic. EYES: e ginger, perrla, anicteric, conjugate. EARS: : Normal anatomy with bilateral hearing loss. NOSE: s eptum intact. ORAL CAVITY: n [...] and lower extremities, sensory exam intact, Speech clear, apractic gait, mild tremor, typical parkinsonian appearance. PSYCH: a lert, oriented. Assessment: * Assessment: 1. C oronary artery disease - I25.10 (Primary) N otes :Since his last visit he has had no angina or increase in dyspnea. He is able to walk 2 miles a day without chest pain. 2 . F ormer smoker - Z87.891 N otes :He seemed highly motivated not to smoke. He has a plan to prevent relapse. 3 . O verweight - E66.3 N otes :His body mass index is slightly over 25.0. We reviewed his diet and nutrition. I approved of his continued exercise. We made a plan to lose weight at a rate of one half of a pound per week. 4 . G ERD (gastroesophageal reflux disease) - K21.9 N otes :His reflux symptoms are well controlled with xtaj-hzg-bclhcqi medication. 5 . B arretts esophagus - K22.70 N otes :He has had no dysphagia lately. He is followed by gastroenterology. His heartburn is well controlled. His colonoscopy is due next year. 6 . A trial fibrillation - I48.91 N otes :He was in a regular normal sinus rhythm today. His cardiac examination was unremarkable. 7 . H earing loss - H91.90 N otes :His hearing loss is stable. He has benefited from the hearing aids. 8 . P arkinsons disease - G20 N otes :He is being seen by the neurology department at [facility] who find he has a movement disorder and are calling and Parkinson's disease.He is being treated with carbidopa and levodopa several times a day. 9 . C erebellar ataxia - G11.9 N otes :His ataxia appears to be the same. He is using a cane when he walks. He has had 2 falls without injuries. Plan: * Treatment: * Labs: * L ab: PROFILE, FASTING (COMPREHENSIVE METABOLIC) L ab: B12 L ab: PSA, TOTAL L ab: CBC w DIFF L ab: Lipid Panel * Procedure Codes: * Preventive Medicine: Counseling: C are goal follow-up plan: Counseling for abnormal BMI given Y es Above Normal BMI Follow-up D ietary management education, guidance, and counseling S moking/Tobacco Use Patient counseled on the dangers of tobacco use and urged to quit. 11/19/2024 * Follow Up: 4 Months (Reason: Follow up) * Images: * Sign off status: Completed true * Provider: Hardy Serra MD Date: 11/19/2024 Generated for Epi schuster/Dinorah/Nelly on: 11/30/2024 04:32 [...] eomi, perrla, anicte josé antonio, conjugate EARS: : Normal anatomy wit h bilateral hearing loss NOSE: septum intact NECK/THYROID: no jugular venous [...] and lower extremities, sensory exam intact, Speech clear, apractic gait, mild tremor, typical parkinsonian appearance SKIN: no suspicious lesion s, anicteric PERIPHERAL PULSES: normal BREASTS: no masses palpable b ilaterally MUSCULOSKELETAL: extremities unremark able, no clubbing, cyanosis or edema LYMPH NODES: no enlarged lymph no smith,spleen normal RECTAL EXAM: not examined PSYCH: alert, oriented ORAL CAVITY: normal, unremarkable
--- NOTE | 2025-09-30 13:48 | MHC.AU.HA1 ---
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 Hoping new technology will help with clarity, particularly in adverse listening environments. Discussed realistic expectations as well as advancements in GRIFFITHS technology. Opted for same webmethods architect and style, highest technology. Showed size of BTE portion of Sphere device. Has old EMs in chart. Alexis does not remember ever using them or why he stopped. Previous notes mention difficulty with EMs staying in ears and preference for sound quality with domes. Recommended EMs due to severity of hearing loss. Will start with old EMs that were saved in chart. Able to couple to new receivers and fit looks appropriate in office today. Discussed options of going back to domes or purchasing new EMs, if needed. Hearing Aid Prescription: Based on the individual?s shared listening needs, communication environments, dexterity, desire for connectivity, and personal preferences, the following prescription for amplification has been made: Right ear: Make, Model, Color: Phonak Audeo [id number] Color: [place] Battery Size: Rechargeable Invoice Classification Clerk/Slim Tube: 1M Type of Earmold/Dome/CShell/SlimTip: SlimTip Earmold Left ear: Left ear prescription to be same as Right Hearing Aid above: Make, Model, Color: Phonak Audeo [id number] Color: Champagne Battery Size: Rechargeable Invoice Classification Clerk/Slim Tube: 1M Type of Earmold/Dome/CShell/SlimTip: SlimTip Earmold Accessories/Assistive Technology: Lab Support Tech Plan of Care: Patient wishes to purchase hearing aids as prescribed Action Taken/Action Needed: Hearing Instrument Fitting to be scheduled when materials arrive Primary Diagnosis: H90.3 Bilateral Sensorineural Hearing Loss Signature: Provider: Lino Scott, [facility]
--- OUTSIDE RECORDS SUMMARY | 2025-09-30 16:32 | XMS_ITS | Patient Health Record ---
Author Organization Jonny Serra III, MD Address [address] [place] [address] Care Team Providers Care Blood Bank Technologist Name Role Phone Dr. Jonny Serra III Primary Care Provider Allergies Allergen (clinical drug ingredient) Drug/Non Drug Allergy documented on EMR Reaction Allergy Type Onset Date Status No Known Drug Allergy Unknown Drug Allergy Active No Known Food Allergy Unknown Drug Allergy Active Reason For Referral Reason Evaluate and Treat progressive hearing loss Diagnosis 1 Hearing loss (H91.90 ) Referral Organization Jonny Serra III, MD Referring Provider First Name Jonny Referring Provider Last Name Ponce Referring Provider Speciality Internal M edicine Referred Provider [facility] er, Speech and Hearing Referred Provider Specialty Audiologists General Notes D Carla 04/16/2025 02:10:05 PM > Per patients request to receive another referral to speech and hearing, referral was faxed. Referral Priority Routine Referral Appointment Date 05/13/2025 Medications Medication SIG (Take, Route, Frequency, Duration) Notes Start Date End Date Status Vitamin B12 Active KLS Omeprazole 20 MG 1 tablet Orally as needed for reflux Active Aspirin Adult Low Dose 81 MG 1 tablet Or ally Once a day Active Carbidopa-Levodopa 25-100 MG Oral Active metroNIDAZOLE 0.75 % APPLY EXTERNALLY TW O TIMES A DAY Active Verapamil HCl ER 120 mg TAKE 1 TABLET DAILY Active Verapamil HCl 120 MG 1 tablet Orally onc e a day 06/19/2025 Active Immunizations Vaccine Route Administration Date Status [...] 12/03/2021 Administered COVID PFIZER Unknown 02/05/2022 Administered SHINGRIX Unknown 10/03/2021 Administered COVID PFIZER Unknown 02/05/2021 Administered Fluzone High-Dose (HD-IIV3) Unknown 08/17/2024 Administered Comirnaty Pfizer COVID-19 12+ Unknown 01/27/2024 Administered Fluzone High-Dose (HD-IIV3) Unknown 08/10/2015 Administered COVID PFIZER Unknown 01/14/2021 Administered Flu-IIv3 Unknown 07/28/2018 Administered Influenza no Preserv 3 and > Unknown 08/08/2010 Administered COVID Pfizer Bivalent Unknown 08/06/2022 Administered Influenza no Preserv 3 and > Unknown 07/20/2013 Administered Comirnaty Pfizer COVID-19 12+ Unknown 08/12/2023 Administered Fluzone High-Dose (HD-IIV3) Unknown 07/24/2017 Administered Fluzone High-Dose (HD-IIV3) Unknown 07/23/2016 Administered PPV 23 Unknown 01/12/2020 Administered COVID Pfizer Bivalent Unknown 04/01/2023 Administered Influenza-iiv4 p-free high dose Unknown 08/12/2023 Administered Influenza no Preserv 3 and > Unknown 07/20/2011 Administered RSV vaccine, bivalent, protein subunit RSV prefusion F Unknown 07/28/2023 Administered PCV13 Unknown 07/28/2018 Administered Influenza no Preserv 3 and > Unknown 07/30/2012 Administered Influenza-iiv4 p-free high dose Unknown 09/16/2022 Administered Comirnaty Pfizer COVID-19 12+ Unknown 07/13/2024 Administered COVID PFIZER Unknown 08/06/2021 Administered Comirnaty Pfizer COVID-19 12+ Unknown 02/08/2025 Administered Social History Tobacco Use: Social History [...] Problem Status W/U Status Risk Notes Problem 2895782 Former smoker (Z87.891) Active confirmed He seemed highl y motivated not to smoke. He has a plan to prevent relapse. Problem 167382468 Overweight (E66.3) Active confirmed His body mass index is slightly over 25.0. We reviewed his diet and nutrition. I approved of his continued exercise. We made a plan to lose weight at a rate of one half of a pound per week. Problem 069618789 GERD (gastroesophageal reflux disease) (K21.9) Active confirmed His reflux symp toms are well controlled with pjke-ctq-kjfmbxj medication. Problem 426912691 Vitamin B12 deficiency (E53.8) Active confirmed His B12 l evel is in the normal range. He will continue on his supplementation. Problem 40523214 Coronary artery disease (I25.10) Active confirmed Since his l ast visit he has had no angina or increase in dyspnea. He is able to walk 2 miles a day without chest pain. Problem 271029037 BPH (benign prostatic hyperplasia) (N40.0) Active confirmed He rises from s leep urinate once a night at most. We have reviewed lifestyle modifications he could make to reduce this. Problem 57994849 Atrial fibrillat ion (I48.91) Active confirmed He was in a reg ular normal sinus rhythm today. His cardiac examination was unremarkable. Problem 64943671 Hearing loss (H91.90) Active confirmed His hearing los s is stable. He has benefited from the hearing aids. Problem 835126673 Barretts esophag us (K22.70) Active confirmed He has had no dysphagia lately. He is followed by gastroenterology. His heartburn is well controlled. His colonoscopy is due next year. Problem 22406317 Parkinsons disea se (G20) Active confirmed He is being see n by the neurology department at [facility] who find he has a movement disorder and are calling and Parkinson's disease.He is being treated with carbidopa and levodopa several times a day. Problem 080506146 Diverticulitis (K57.92) Active confirmed During a recent hospitalization a CT scan showed a masslike effect around the sigmoid colon. He has seen a leasing sales consultant and a CT scan is being planned to evaluate the recently found abnormality. History of any symptoms today. Problem 66683500 Hypercholesterem ia (E78.00) Active confirmed Comprehensive b lood work with a fasting lipid profile has been ordered. No change in his regimen was made today. 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 He is using a cane when he walks. He has had 2 falls without injuries. Vital Signs Heart Rate 73 /min 09/19/2025 Temperature 98.2 degrees Fahrenheit 09/19/2025 Blood pressure diastolic 72 mm Hg 09/19/2025 Height 71 in 09/19/2025 Blood pressure systolic 135 mm Hg 09/19/2025 Weight 185 lbs 09/19/2025 BMI 25.8 kg/m2 09/19/2025 Encounters Encounter Location Date Provider Diagnosis Jonny Serra III, MD [address] [place] [address] [place] [address] 12/09/2024 Jonny Serra Vitamin B12 deficien cy E53.8 ; Parkinsons disease G20 ; Former smoker Z87.891 ; Atrial fibrillation I48.91 ; Barretts esophagus K22.70 ; Overweight E66.3 ; Hearing loss H91.90 and Coronary artery disease I25.10 Jonyn Serra III, MD [address] [place] [address] [place] [address] 06/19/2025 Jonny Serra Atrial fibrillation I48.91 ; Coronary artery disease I25.10 ; Vitamin B12 deficiency E53.8 ; Overweight E66.3 ; BPH (benign prostatic hyperplasia) N40.0 ; GERD (gastroesophageal reflux disease) K21.9 ; Barretts esophagus K22.70 ; Hearing loss H91.90 ; Former smoker Z87.891 ; Cerebellar ataxia G11.9 and Parkinsons disease G20 Jonny Serra III, MD [address] [place] [address] [place] [address] 09/19/2025 Jonny Serra Former smoker Z87.89 1 ; Coronary artery disease I25.10 ; Overweight E66.3 ; GERD (gastroesophageal reflux disease) K21.9 ; Barretts esophagus K22.70 ; Atrial fibrillation I48.91 ; Hearing loss H91.90 ; Parkinsons disease G20 and Cerebellar ataxia G11.9 Jonny Serra III, MD [address] [place] [address] [address] [place] [address] 03/28/2025 Jonny Serra III, MD [address] [place] [address] [address] [place] [address] 04/15/2025 Jonny Serra Assessments Encounter Date Diagnosis (ICD Code) Assessment Notes Treatment Notes Treatment Clinical Notes 12/09/2024 Vitamin B12 deficiency (ICD-10 - E53.8) His vitamin B12 level was normal and his supplementation was continued. 12/09/2024 Parkinsons disease (ICD-10 - G20) He is being seen by the neurology department at [facility] who find he has a movement disorder and are calling and Parkinson's disease.He is being treated with carbidopa and levodopa several times a day. 06/19/2025 Coronary artery disease (ICD-10 - I25.10) Since his last visit he has had no angina or increase in dyspnea. He is able to walk 2 miles a day without chest pain. 06/19/2025 Atrial fibrillation (ICD-10 - I48.91) He was in a regular normal sinus rhythm today. His cardiac examination was unremarkable. 09/19/2025 Former smoker (ICD-10 - Z87.891) He seemed highly motivated not to smoke. He has a plan to prevent relapse. 09/19/2025 Coronary artery disease (ICD-10 - I25.10) Since his last visit he has had no angina or increase in dyspnea. He is able to walk 2 miles a day without chest pain. 12/09/2024 Former smoker (ICD-10 - Z87.891) He seemed highly motivated not to smoke. He has a plan to prevent relapse. 06/19/2025 Vitamin B12 deficiency (ICD-10 - E53.8) His B12 level is in the normal range. He will continue on his supplementation. 09/19/2025 Overweight (ICD-10 - E66.3) His body mass index is slightly over 25.0. We reviewed his diet and nutrition. I approved of his continued exercise. We made a plan to lose weight at a rate of one half of a pound per week. 12/09/2024 Atrial fibrillation (ICD-10 - I48.91) He was in a regular rhythm today with normal vital signs. 06/19/2025 Overweight (ICD-10 - E66.3) His body mass index is slightly over 25.0. We reviewed his diet and nutrition. I approved of his continued exercise. We made a plan to lose weight at a rate of one half of a pound per week. 09/19/2025 GERD (gastroesophageal reflux disease) (ICD-10 - K21.9) His reflux symptoms are well controlled with dcug-wvw-kylhopq medication. 12/09/2024 Barretts esophagus (ICD-10 - K22.70) He has had no dysphagia lately. He is followed by gastroenterology. His heartburn is well controlled. His colonoscopy is due next year. 06/19/2025 BPH (benign prostatic hyperplasia) (ICD-10 - N40.0) He rises from sleep urinate once a night at most. We have reviewed lifestyle modifications he could make to reduce this. 09/19/2025 Barretts esophagus (ICD-10 - K22.70) He has had no dysphagia lately. He is followed by gastroenterology. His heartburn is well controlled. His colonoscopy is due next year. 12/09/2024 Overweight (ICD-10 - E66.3) We discussed his diet and nutrition today. He will continue to exercise and restrict calories.He is very slightly overweight. 06/19/2025 GERD (gastroesophageal reflux disease) (ICD-10 - K21.9) His reflux symptoms are well controlled with lszr-tsc-utqgbhi medication. 09/19/2025 Atrial fibrillation (ICD-10 - I48.91) He was in a regular normal sinus rhythm today. His cardiac examination was unremarkable. 12/09/2024 Hearing loss (ICD-10 - H91.90) His hearing loss is stable. He has benefited from the hearing aids. 06/19/2025 Barretts esophagus (ICD-10 - K22.70) He has had no dysphagia lately. He is followed by gastroenterology. His heartburn is well controlled. His colonoscopy is due next year. 09/19/2025 Hearing loss (ICD-10 - H91.90) His hearing loss is stable. He has benefited from the hearing aids. 12/09/2024 Coronary artery disease (ICD-10 - I25.10) Since his last visit he has had no angina or increase in dyspnea. He is able to walk 2 miles a day without chest pain. 06/19/2025 Hearing loss (ICD-10 - H91.90) His hearing loss is stable. He has benefited from the hearing aids. 09/19/2025 Parkinsons disease (ICD-10 - G20) He is being seen by the neurology department at [facility] who find he has a movement disorder and are calling and Parkinson's disease.He is being treated with carbidopa and levodopa several times a day. 06/19/2025 Former smoker (ICD-10 - Z87.891) He seemed highly motivated not to smoke. He has a plan to prevent relapse. 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 He is using a cane when he walks. He has had 2 falls without injuries. 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 He is using a cane when he walks. He has had 2 falls without injuries. 06/19/2025 Parkinsons disease (ICD-10 - G20) He is being seen by the neurology department at [facility] who find he has a movement disorder and are calling and Parkinson's disease.He is being treated with carbidopa and levodopa several times a day. Plan Of Treatment Pending Test Test Name Order Date URINE DIP STICK 12/21/2022 PROFILE, FASTING (COMPREHENSIVE METABOLI C) 06/19/2025 PROFILE, FASTING (COMPREHENSIVE METABOLI C) 08/30/2023 PROFILE, FASTING (COMPREHENSIVE METABOLI C) 12/09/2024 PROFILE, FASTING (COMPREHENSIVE METABOLI C) 06/29/2020 PROFILE, FASTING (COMPREHENSIVE METABOLI C) 03/24/2023 PROFILE, FASTING (COMPREHENSIVE METABOLI C) 10/25/2018 PROFILE, FASTING (COMPREHENSIVE METABOLI C) 04/16/2018 PROFILE, FASTING (COMPREHENSIVE METABOLI C) 06/29/2022 PROFILE, FASTING (COMPREHENSIVE METABOLI C) 08/30/2024 PROFILE, FASTING (COMPREHENSIVE METABOLI C) 12/21/2022 PROFILE, FASTING (COMPREHENSIVE METABOLI C) 06/14/2024 PROFILE, FASTING (COMPREHENSIVE METABOLI C) 03/08/2024 PROFILE, FASTING (COMPREHENSIVE METABOLI C) 09/19/2025 PROFILE, FASTING (COMPREHENSIVE METABOLI C) 12/30/2021 PROFILE, RANDOM (COMPREHENSIVE METABOLIC ) 02/11/2021 LIPID PANEL 02/11/2021 LIPID PANEL 06/29/2020 LIPID PANEL 03/24/2023 LIPID PANEL 10/25/2018 LIPID PANEL 04/16/2018 LIPID PANEL 06/29/2022 LIPID PANEL 03/30/2022 VITAMIN B12 AND FOLATE 02/11/2021 B12 09/19/2025 B12 12/30/2021 B12 06/29/2020 B12 10/25/2018 B12 12/21/2022 B12 04/16/2018 B12 03/30/2022 PSA, TOTAL 06/19/2025 PSA, TOTAL 12/09/2024 PSA, TOTAL 09/19/2025 PSA, TOTAL 03/24/2023 PSA, TOTAL 02/11/2021 PSA, TOTAL 06/29/2020 PSA, TOTAL 06/29/2022 PSA, TOTAL 10/25/2018 PSA, TOTAL 06/14/2024 PSA, TOTAL 04/16/2018 CBC w DIFF 03/30/2022 CBC w DIFF 12/30/2021 CBC w DIFF 06/19/2025 CBC w DIFF 09/19/2025 CBC w DIFF 03/24/2023 CBC w DIFF 12/21/2022 CBC w DIFF 02/11/2021 CBC w DIFF 06/29/2020 CBC w DIFF 06/29/2022 CBC w DIFF 10/25/2018 CBC w DIFF 04/16/2018 SCREENING COLONOSCOPY 07/12/2023 CBC WITH AUTO DIFF 03/08/2024 CBC WITH AUTO DIFF 08/30/2023 CBC WITH AUTO DIFF 12/09/2024 CBC WITH AUTO DIFF 08/30/2024 CBC WITH AUTO DIFF 06/14/2024 Lipid Panel 06/14/2024 Lipid Panel 03/08/2024 Lipid Panel 08/30/2023 Lipid Panel 12/30/2021 Lipid Panel 06/19/2025 Lipid Panel 12/09/2024 Lipid Panel 08/30/2024 Lipid Panel 09/19/2025 Lipid Panel 12/21/2022 Vitamin B12 06/29/2022 Vitamin B12 03/08/2024 Vitamin B12 08/30/2023 Vitamin B12 06/19/2025 Vitamin B12 12/09/2024 Vitamin B12 03/24/2023 Vitamin B12 08/30/2024 Next Appt Details Provider Name:Jonny Mattane , 01/20/2026 10:00:00 AM, [address], [place], [address], Provider Name:Jonny Mattane , 06/22/2026 10:00:00 AM, [address] [facility], [place], [address], Insurance Providers Payer Name Payer Address Payer Phone Subscriber Number Group Number Insured Name Patient Relationship to Insured Coverage Start Date Coverage End Date MEDICARE NGS [address] [place] [address] [id number] Alexis Correa Self - patient is the insured [facility] [address] [place], [place] [id number] [phone] [id number] Alexis Correa Self - patient is the insured Medical (General) History Medical History History ICD Code paroxysmal AFIB/SVT, atypical chest pain gerd episodic diplopia hearing loss Jeffrey's esophagus Cerebellar ataxia Parkinson's disease Tremor Surgical History Surgery Date(Month/Year) No history Colonoscopy and Esophagogastroduodenosco py 11/25/2012 left knee surgery 1992 right biceps tendon repair 2001 repair right quadriceps tendon, Dr. Issa h 10/2004 Hospitalization History Reason Date(Month/Year) No history
--- OUTSIDE RECORDS SUMMARY | 2025-09-30 16:32 | XMS_ITS | Clinical Summary ---
Author Organization [facility] Address [address] [place] [address] Phone Care Team Providers Care Heating Equipment Installer Name Role Phone Jonny Serra MD Primary Care Provider [phone] Social History Tobacco Use Types Packs/Day Years Used Date Smoking Tobacco: Never Assessed Education Answer Date Recorded Are you interested in more education? Not on matilda e 06/26/2023 Are you concerned about learning? Not on file 06/26/2023 No 06/26/2023 No 06/26/2023 Digital Access Answer Date Recorded No 06/26/2023 No 06/26/2023 Reliable internet access at home? Not on file 06/26/2023 Device with a working camera? Not on file Sex and Gender Information Value Date Recorded Sex Assigned at Not on file Legal Sex Male 6:38 PM EST Gender Identity Not on file Sexual Orientation Not on file Plan of Treatment Health Maintenance Due Date Last Done Comments Adult Td,Tdap Booster 1945 LIPID PANEL 1947 DEPRESSION SCREENING 1959 SMOKING Hx and SMOKELESS TOB ACCO SCREENING 02/01/1960 HEPATITIS C SCREENING 1965 PNEUMOCOCCAL VACCINES (50+ y ears) (1 of 1 - PCV) 1997 ZOSTER VACCINES (1 of 2) 1997 RSV VACCINE (1 - 1-dose 75+ series) 2022 INFLUENZA VACCINE (#1) 2025 COVID-19 VACCINE ( - 2024-2 6 season) 2025 HEPATITIS A VACCINES Aged Out No long er eligible based on patient's age to complete this topic HIB VACCINES Aged Out No longer eligi ble based on patient's age to complete this topic IPV VACCINES Aged Out No longer eligi ble based on patient's age to complete this topic MENINGOCOCCAL VACCINES (ACWY) Aged Out No longer eligible based on patient's age to complete this topic MENINGOCOCCAL VACCINES (B) Aged Out N o longer eligible based on patient's age to complete this topic Medical Devices Not on file Insurance MEDICARE PART A & B [facility] MEDEX SUPPLEMENT MEDICARE PART A & B [employer] MEDEX SUPPLEMENT MEDICARE PART A & B [employer] MEDEX SUPPLEMENT MEDICARE PART A & B Member Subscriber Plan / Payer ( fective 2016-) Name:Correa, Alexis Zaid Member ID:[id number] Relation to Subscriber:Self Name:CorreaAlexis Subscriber ID:[id number] Payer ID:[id number] Group ID:Not on file Type:Medicare Address: [facility] [employer] [facility] [employer] [facility] [address] [place] [address] [employer] MEDEX SUPPLEMENT MEDICARE PART A & B [employer] MEDEX SUPPLEMENT MEDICARE PART A & B [employer] MEDEX SUPPLEMENT Care Teams Heating Equipment Installer Relationship Specialty Start Date End Date Jonny Serra MD [address] [place] [address] [place] [address] PCP - General Medical Oncology 05/22/23 Additional Source Comments The information contained in this document represents components of the legal health record. It is not the complete legal health record.[facility]
--- OUTSIDE RECORDS SUMMARY | 2025-09-30 16:32 | XMS_ITS | Patient Health Record ---
Author Organization [facility] Address [address] [place] [address] Care Team Providers Care Serologist Name Role Phone Jonny Serra MD Primary Care Provider Unavailab Jonny Shelley Unavailable [phone] Allergies No Known Allergies Reason For Referral No Information Medications Medication SIG (Take, Route, Frequency, Duration) Notes Start Date End Date Status Flecainide Acetate 100mg Active Aspirin 325 MG Tablet 1/2 tablet Orally Once a day Active Vitamin B 12 100 MCG Lozenge as directed Orally Active Verapamil HCl 120mg Active Omeprazole 20mg Acti ve Immunizations Vaccine Route Administration Date Status Comme nts Influenza Unknown 09/27/2022 Administered Social History Social History Additional Details Category Social Info Options Details Miscellaneous: Marital status: 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 alcohol Nonsmoker; no sig. alcohol Nonsmoker; no sig. alcohol Problems Problem Type SNOMED Code ICD Code Onset Dates Problem Status W/U Status Risk Notes Problem Colon cancer screening (592116990) Colon cancer screening (Z12.11) Active confirmed Problem Esophageal reflux (304295230) Esophageal reflux (K21.9) Active confirmed Problem Gastroesophageal reflux disease without esophagitis (468314306) Gastroesophageal reflux disease without esophagitis (K21.9) Active confirmed Problem Jeffrey's esophagus (214076788) Barretts esophagus without dysplasia (K22.70) Active confirmed Problem Gastric polyp (28448103) Gastric polyp (K31.7) Active confirmed Problem Jeffrey esophagus (744027823) 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 colonoscopy in 2001 and November, except diverticulosis Hypertension Atrial fib Denies [place],DM,CVA,Lung disease,renal dise ase GERD--upper endoscopy in Nov of 2012 revealed a small hiatal hernia and small area of Jeffrey's esophagus-there was no evidence of any esophagitis nor dysplasia on the biopsies. Neg. ETT [address] 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 [facility] Surgical History Surgery Date(Month/Year) Surgery for right biceps tendon repair Left knee surgery Torn right quadriceps
== END 2025-09-30 12:54 | disposition home or self-care (01) ==
LOC: HO.HAP 12:53
PROVIDERS: Visit Provider Internal Medicine Medical Oncology
DX: H90.3 Sensorineural hearing loss, bilateral (principal)
CPT/HCPCS: 92590